=== PATIENT | female | born 1950 | race Caucasian/White ===

== ENCOUNTER → 2016-10-13 | Day surgery (SDC) | payer OTHER ==
[2016-10-11 13:02] LABS: Basophils # (auto) 0 uL; Basophils % (auto) 0.5 % (0.0-2.0); Eosinophils # (auto) 0.1 uL; Eosinophils % (auto) 2.2 % (0.0-7.0); Hematocrit 38.4 % (36.0-46.0); Hemoglobin 12.8 g/dL (12.2-16.2); Lymphocytes # (auto) 1.9 uL; Lymphocytes % (auto) 32.6 % (10.0-50.0); Mean Corpuscular Hemoglobin 29.8 pg (28.0-32.0); Mean Corpuscular Hgb Conc. 33.2 g/dL (32.0-36.0); Mean Corpuscular Volume 89.5 fL (80.0-100.0); Mean Platelet Volume 8.4 fL (7.4-10.4); Monocytes # (auto) 0.6 uL; Monocytes % (auto) 10.2 % (0.0-12.0); Neutrophils # (auto) 3.1 uL; Neutrophils % (auto) 54.5 % (37.0-80.0); Platelet Count (auto) 247 10^3/uL (140-450); Red Cell Distribution Width 12.9 % (11.6-16.0); White Blood Cell 5.8 10^3/uL (4.4-10.8)
[2016-10-11 13:14] LABS: INR 0.98 (0.9-1.15); Partial Thromboplastin Time 26.4 sec (22.64-33.71); Prothrombin Time 10.1 sec (9.37-12.3)
[~2016-10-13] VITALS: Ht 165.1 cm; Wt 72.6 kg
[~2016-10-13] MED LIST: AMIT25TA9 PO; AMLO5TAB2 PO; ASPI81CH43 OR; BRIM0.2S2 OP; BUSP10TA90 OR; CLON0.1T OR; GABA800T97 OR; LATA0.0015 EACHEYE; LOSA100T27 OR; SODIUM CHLORIDE LOCK 10 ML ONE; TRAM50TA2 OR; [UNRECOGNIZED DRUG - CODE] TOP; diphenhdrAMINE HCL 50 MG/1 ML VL ONE
[2016-10-13] MEDS: fentaNYL CITRATE 100 MCG/2 ML VL ONE ×3 (09:11→09:20)
[2016-10-13] MEDS: MIDAZOLAM HCL 5 MG/ML-1ML VIAL ONE ×3 (09:11→09:20)
[2016-10-13 10:16] VITALS: BP 126/81
== END | disposition home or self-care (01) ==
LOC: GI 07:16
PROVIDERS: ATTEND Internal Medicine Gastroenterology
DX: Z12.11 Encounter for screening for malignant neoplasm of colon (principal); F41.9 Anxiety disorder, unspecified; Z87.891 Personal history of nicotine dependence; K62.1 Rectal polyp; Z80.0 Family history of malignant neoplasm of digestive organs
CPT/HCPCS: 36415; 45385; 85025; 85610; 85730; J2250; J3010

== ENCOUNTER → 2016-12-05 | Outpatient (CLI) | payer OTHER ==
[~2016-12-05] MED LIST changes: -SODIUM CHLORIDE LOCK 10 ML ONE; -diphenhdrAMINE HCL 50 MG/1 ML VL ONE
[2016-12-05 09:28] LABS: Urine RBC None Seen /hpf (0 - 4)
[2016-12-05 09:40] LABS: Basophils # (auto) 0 uL; Basophils % (auto) 0.8 % (0.0-2.0); Eosinophils # (auto) 0.1 uL; Eosinophils % (auto) 1.4 % (0.0-7.0); Hematocrit 38.7 % (36.0-46.0); Hemoglobin 13.1 g/dL (12.2-16.2); Lymphocytes # (auto) 1.5 uL; Lymphocytes % (auto) 31.5 % (10.0-50.0); Mean Corpuscular Hemoglobin 29.9 pg (28.0-32.0); Mean Corpuscular Hgb Conc. 33.7 g/dL (32.0-36.0); Mean Corpuscular Volume 88.6 fL (80.0-100.0); Mean Platelet Volume 7.9 fL (7.4-10.4); Monocytes # (auto) 0.5 uL; Monocytes % (auto) 10.2 % (0.0-12.0); Neutrophils # (auto) 2.6 uL; Neutrophils % (auto) 56.1 % (37.0-80.0); Platelet Count (auto) 275 10^3/uL (140-450); Red Cell Distribution Width 13.1 % (11.6-16.0); White Blood Cell 4.7 10^3/uL (4.4-10.8)
[2016-12-05 09:49] LABS: Urine Bilirubin Negative (Negative); Urine Blood Negative /uL (Negative); Urine Color Yellow (Yellow); Urine Glucose Normal (Normal); Urine Ketone Negative (Negative); Urine Nitrite Negative (Negative); Urine Squamous Epithelial Cell FEW /hpf (<5); Urine Urobilinogen Normal (Negative); Urine pH 6.5 (5.0-8.0)
[2016-12-05 09:50] LABS: Albumin 3.8 g/dL (3.4-5.0); BUN/Creatinine Ratio 21.1; Bilirubin, Total 0.6 mg/dL (0.2-1.0); Calcium 8.7 mg/dL (8.5-10.1)
== END | disposition home or self-care (01) ==
LOC: LAB 08:42
PROVIDERS: ATTEND Internal Medicine
DX: C23 Malignant neoplasm of gallbladder (principal); Z00.00 Encounter for general adult medical examination without abnormal findings; I10 Essential (primary) hypertension
CPT/HCPCS: 36415; 80053; 80061; 81001; 82306; 85025; 86803

== ENCOUNTER → 2017-02-09 | Outpatient (CLI) | payer OTHER ==
[2017-02-09 11:11] LABS: Basophils # (auto) 0 uL; Basophils % (auto) 0.5 % (0.0-2.0); Eosinophils # (auto) 0.1 uL; Eosinophils % (auto) 1.4 % (0.0-7.0); Hemoglobin 12.9 g/dL (12.2-16.2); Lymphocytes % (auto) 36.4 % (10.0-50.0); Mean Corpuscular Hemoglobin 29.8 pg (28.0-32.0); Mean Corpuscular Hgb Conc. 33.8 g/dL (32.0-36.0); Mean Platelet Volume 7.2 fL (7.4-10.4); Monocytes # (auto) 0.5 uL; Monocytes % (auto) 9.6 % (0.0-12.0); Neutrophils # (auto) 2.8 uL; Neutrophils % (auto) 52.1 % (37.0-80.0); Platelet Count (auto) 278 10^3/uL (140-450); Red Cell Distribution Width 13.7 % (11.6-16.0); White Blood Cell 5.5 10^3/uL (4.4-10.8)
[2017-02-09 11:38] LABS: Urine Bilirubin Negative (Negative); Urine Blood Negative /uL (Negative); Urine Color Colorless (Yellow); Urine Glucose Normal (Normal); Urine Ketone Negative (Negative); Urine Nitrite Negative (Negative); Urine RBC <1 /hpf (0 - 4); Urine Urobilinogen Normal (Negative)
[2017-02-09 11:41] LABS: INR 0.96 (0.9-1.15); Partial Thromboplastin Time 27.9 sec (22.64-33.71); Prothrombin Time 10.4 sec (9.37-12.3)
[2017-02-09 12:32] LABS: Albumin 3.7 g/dL (3.4-5.0); BUN/Creatinine Ratio 13.5; Bilirubin, Total 0.7 mg/dL (0.2-1.0); Potassium 3.9 mmol/L (3.5-5.1)
== END | disposition home or self-care (01) ==
LOC: LAB 10:35
PROVIDERS: ATTEND Podiatrist Foot & Ankle Surgery
DX: Z01.812 Encounter for preprocedural laboratory examination (principal); M20.5X9 Other deformities of toe(s) (acquired), unspecified foot; M95.9 Acquired deformity of musculoskeletal system, unspecified; M89.371 Hypertrophy of bone, right ankle and foot
CPT/HCPCS: 36415; 80053; 81001; 85025; 85610; 85730

== ENCOUNTER 2017-02-15 06:03 | Day surgery (SDC) | payer OTHER ==
[~2017-02-15] VITALS: Ht 165.1 cm; Wt 70.8 kg
[~2017-02-15 06:03] MED LIST changes: -AMIT25TA9 PO; -BRIM0.2S2 OP; +PIME1CRE TOP; +TIMO0.5S3 EACHEYE; -TRAM50TA2 OR; -[UNRECOGNIZED DRUG - CODE] TOP
[2017-02-15] MEDS ORDERED: SUCCINYLCHOLINE CHLORIDE 20 MG/ML 10ML VIAL IV ONE (06:43)
[2017-02-15] MEDS ORDERED: LIDOCAINE 1% HCL (LOCAL ANESTH.) INJ 20ML MDV ONE (06:43)
[2017-02-15] MEDS ORDERED: ONDANSETRON HCL 4 MG/2 ML VIAL ONE (06:48)
[2017-02-15] MEDS ORDERED: MIDAZOLAM HCL 1MG/1ML-2 ML VIAL ONE (06:48)
[2017-02-15] MEDS ORDERED: PROPOFOL 10 MG/ML 20 ML IV ONE (06:48)
[2017-02-15] MEDS ORDERED: SODIUM CHLORIDE LOCK 20 ML ONE (06:48)
[2017-02-15] MEDS ORDERED: fentaNYL CITRATE 100 MCG/2 ML VL ONE (06:48)
[2017-02-15] MEDS ORDERED: CLINDAMYCIN 600MG IV 50 ML IV ONE (07:18)
[2017-02-15] MEDS ORDERED: BUPIVACAINE HCL 50 ML ONE (07:20)
[2017-02-15] MEDS ORDERED: LIDOCAINE W/ EPINEPHRINE 1% 20ML VIAL ONE (07:20)
[2017-02-15] MEDS ORDERED: BETAMETHASONE ACET (6MG/ML) 5ML VIAL ONE (07:24)
[2017-02-15] MEDS ORDERED: BUPIVACAINE 0.5% MPF INJ 30ML SDV IJ ONE ×2 (07:44→08:32)
[2017-02-15] MEDS ORDERED: HYDROmorphone HCL 2 MG/ML VL IV PRN (08:00)
[2017-02-15] MEDS ORDERED: METOCLOPRAMIDE HCL 5MG/ml INJ 2ml VIAL IV ONE (08:00)
[2017-02-15 09:50] VITALS: BP 140/70
== END 2017-02-15 09:50 | disposition home or self-care (01) ==
LOC: SUR 06:03
PROVIDERS: ATTEND Podiatrist Foot & Ankle Surgery
DX: M20.41 Other hammer toe(s) (acquired), right foot (principal); G62.9 Polyneuropathy, unspecified; I10 Essential (primary) hypertension; F41.9 Anxiety disorder, unspecified; T44.5X5A Adverse effect of predominantly beta-adrenoreceptor agonists, initial encounter; Z87.891 Personal history of nicotine dependence; Z98.51 Tubal ligation status
CPT/HCPCS: 28285; 73630; J0330; J0702; J2001; J2250; J2405; J2704; J3010; J3490

== ENCOUNTER 2017-08-15 06:11 | Day surgery (SDC) | payer OTHER ==
[2017-08-11 10:53] LABS: Basophils # (auto) 0 uL; Eosinophils # (auto) 0.1 uL; Eosinophils % (auto) 1.5 % (0.0-7.0); Hematocrit 40.2 % (36.0-46.0); Hemoglobin 13.6 g/dL (12.2-16.2); Lymphocytes # (auto) 1.6 uL; Lymphocytes % (auto) 32.4 % (10.0-50.0); Mean Corpuscular Hemoglobin 30.5 pg (28.0-32.0); Mean Corpuscular Hgb Conc. 33.8 g/dL (32.0-36.0); Mean Corpuscular Volume 90.1 fL (80.0-100.0); Mean Platelet Volume 8.2 fL (6.9-10.8); Monocytes # (auto) 0.6 uL; Monocytes % (auto) 11.5 % (0.0-12.0); Neutrophils # (auto) 2.6 uL; Neutrophils % (auto) 53.6 % (37.0-80.0); Platelet Count (auto) 251 10^3/uL (140-450); Red Cell Distribution Width 13.3 % (11.8-14.3); White Blood Cell 4.8 10^3/uL (4.4-10.8)
[2017-08-11 10:59] LABS: Urine Bilirubin Negative (Negative); Urine Blood Negative /uL (Negative); Urine Color Yellow (Yellow); Urine Glucose Normal (Normal); Urine Ketone Negative (Negative); Urine Nitrite Negative (Negative); Urine RBC <1 /hpf (0 - 4); Urine Squamous Epithelial Cell FEW /hpf (<5); Urine Urobilinogen Normal (Negative)
[2017-08-11 11:09] LABS: INR 0.92 (0.9-1.15); Partial Thromboplastin Time 28.3 sec (22.64-33.71)
[2017-08-11 11:13] LABS: Albumin 3.8 g/dL (3.4-5.0); BUN/Creatinine Ratio 15.2; Calcium 8.9 mg/dL (8.5-10.1)
[2017-08-11 11:15] LABS: Bilirubin, Total 0.7 mg/dL (0.2-1.0); Total Protein 6.8 g/dL (6.4-8.2)
[~2017-08-15] VITALS: Ht 165.1 cm; Wt 68.0 kg
[2017-08-15] MEDS ORDERED: LIDOCAINE 1% HCL (LOCAL ANESTH.) INJ 20ML MDV ONE (06:44)
[2017-08-15] MEDS ORDERED: BUPIVACAINE 0.5% MPF INJ 30ML SDV IJ ONE (06:44)
[2017-08-15] MEDS ORDERED: BUPIVACAINE 0.25% INJ 50ML VIAL ONE (06:45)
[2017-08-15] MEDS ORDERED: BUPIVACAINE 0.75% INJ 10ML MPV SDV IJ ONE (06:45)
[2017-08-15] MEDS ORDERED: MIDAZOLAM HCL 1MG/1ML-2 ML VIAL ONE (07:00)
[2017-08-15] MEDS ORDERED: fentaNYL CITRATE 100 MCG/2 ML VL ONE (07:00)
[2017-08-15] MEDS ORDERED: ONDANSETRON HCL 4 MG/2 ML VIAL ONE (07:00)
[2017-08-15] MEDS ORDERED: PROPOFOL 10 MG/ML 20 ML IV ONE ×3 (07:00→09:31)
[2017-08-15] MEDS ORDERED: LIDOCAINE W/ EPINEPHRINE 1 % INJ 30ML ONE (07:01)
[2017-08-15] MEDS ORDERED: CLINDAMYCIN 600MG IV 50 ML IV ONE (07:06)
[2017-08-15] MEDS ORDERED: HYDROmorphone HCL 2 MG/ML VL IV PRN (07:30)
[2017-08-15] MEDS ORDERED: KETOROLAC TROMETH 30 MG/ML 1ML VIAL IV ONE (07:30)
[2017-08-15] MEDS ORDERED: METOCLOPRAMIDE HCL 5MG/ml INJ 2ml VIAL IV ONE (07:30)
[2017-08-15 10:45] VITALS: BP 133/71
== END 2017-08-15 10:46 | disposition home or self-care (01) ==
LOC: SUR 06:11
PROVIDERS: ATTEND Podiatrist Foot & Ankle Surgery
DX: M24.575 Contracture, left foot (principal); M25.775 Osteophyte, left foot; Q66.3 Other congenital varus deformities of feet; M20.42 Other hammer toe(s) (acquired), left foot
CPT/HCPCS: 27691; 28230; 28270; 28285; 28299; 36415; 73620; 80053; 81001; 85025; 85610; 85730; 88304; 88311; C1713; C1769; J2001; J2250; J2405; J2704; J3010; J3490

== ENCOUNTER 2017-08-18 10:12 | Inpatient (IN) | payer OTHER ==
[~2017-08-18] VITALS: Ht 165.1 cm; Wt 73.2 kg
[2017-08-18] MEDS ORDERED: SODIUM CHLORIDE 0.9% 1,000 ML IVB ONE (10:26)
[2017-08-18] MEDS ORDERED: ONDANSETRON HCL 4 MG/2 ML VIAL IV ONE (10:30)
[2017-08-18 11:14] LABS: Basophils # (auto) 0 uL; Basophils % (auto) 0.2 % (0.0-2.0); Eosinophils # (auto) 0 uL; Eosinophils % (auto) 0.1 % (0.0-7.0); Hematocrit 38.8 % (36.0-46.0); Hemoglobin 13.8 g/dL (12.2-16.2); Lymphocytes % (auto) 8.3 % (10.0-50.0); Mean Corpuscular Hemoglobin 30.3 pg (28.0-32.0); Mean Corpuscular Hgb Conc. 35.5 g/dL (32.0-36.0); Mean Corpuscular Volume 85.3 fL (80.0-100.0); Mean Platelet Volume 7.4 fL (6.9-10.8); Monocytes # (auto) 1.1 uL; Monocytes % (auto) 9.3 % (0.0-12.0); Neutrophils % (auto) 82.1 % (37.0-80.0); Nucleated Red Blood Cells % 0.1 %; Platelet Count (auto) 245 10^3/uL (140-450); Red Cell Distribution Width 12.6 % (11.8-14.3); White Blood Cell 12.1 10^3/uL (4.4-10.8)
[2017-08-18 11:30] LABS: Albumin 3.6 g/dL (3.4-5.0); Alkaline Phosphatase 107 U/L (45-117); Anion Gap 12 (5-15); Aspartate Aminotransferase 17 U/L (15-37); BUN/Creatinine Ratio 18.2; Bilirubin, Total 1.7 mg/dL (0.2-1.0); Blood Urea Nitrogen 6 mg/dL (7-18); Calcium 8.7 mg/dL (8.5-10.1); Carbon Dioxide 24 mmol/L (21-32); Chloride 77 mmol/L (98-107); GFR African American 256 mL/min; GFR Non-African American 212 mL/min; Glucose 120 mg/dL (74-106); Magnesium 1.8 mg/dL (1.6-2.6); Potassium 3.2 mmol/L (3.5-5.1); Total Protein 7.2 g/dL (6.4-8.2)
[2017-08-18 11:38] LABS: Sodium 113 mmol/L (136-145)
[2017-08-18 11:47] LABS: INR 1.01 (0.9-1.15); Partial Thromboplastin Time 31.5 sec (22.64-33.71)
[2017-08-18] MEDS ORDERED: LEVOFLOXACIN 500MG 100 ML IV ONE (12:00)
[2017-08-18] MEDS ORDERED: SODIUM CHL 3% 500 ML IV ONE (12:00)
[2017-08-18] MEDS ORDERED: POTASSIUM CHL 20MEQ/50ML 50 ML IV ONE (12:00)
[2017-08-18] MEDS ORDERED: LORazepam 0.5 MG TAB PO PRN (12:30)
[2017-08-18] MEDS: SOD CHL 0.9%/ KCL 40MEQ 1,000 ML IV SCH (12:30)
[2017-08-18] MEDS ORDERED: LACTULOSE 20Gm/30ML SOLN PO PRN (12:30)
[2017-08-18] MEDS ORDERED: ACETAMINOPHEN 500 MG TAB PO PRN (12:30)
[2017-08-18] MEDS ORDERED: LABETALOL HCL 5 MG/ML ML 20ML VIAL IV PRN ×2 (12:30)
[2017-08-18] MEDS ORDERED: NITROGLYCERIN 0.4 MG SL TAB SL PRN (12:30)
[2017-08-18] MEDS ORDERED: HYDROmorphone HCL 2 MG/ML VL IV PRN (12:30)
[2017-08-18] MEDS ORDERED: TEMAZEPAM 15 MG CAP PO PRN (12:30)
[2017-08-18] MEDS: FAMOTIDINE (10MG/ML) 2ML VL IV SCH (12:54)
[2017-08-18] MEDS ORDERED: POTASSIUM CHL 20 Meq TABLET PO ONE (13:15)
[2017-08-18] MEDS: LOSARTAN POTASSIUM 50 MG TAB PO SCH (13:24)
[2017-08-18] MEDS: GABAPENTIN 400 MG CAP PO SCH ×2 (13:48→22:48)
[2017-08-18] MEDS: busPIRone HCL 10 MG TAB PO SCH ×2 (13:48→22:48)
[2017-08-18 13:53] LABS: Urine Bilirubin Negative (Negative); Urine Blood TRACE /uL (Negative); Urine Color Yellow (Yellow); Urine Glucose Normal (Normal); Urine Ketone 1+ (Negative); Urine Nitrite Negative (Negative); Urine RBC 1 /hpf (0 - 4); Urine Squamous Epithelial Cell FEW /hpf (<5); Urine Urobilinogen Normal (Negative); Urine pH 6.5 (5.0-8.0)
[2017-08-18] MEDS: PROMETHAZINE HCL 25 MG/ML 1ML IV PRN ×2 (14:40→19:45)
[2017-08-18] MEDS: HYDROmorphone HCL 2 MG/ML VL IV PRN ×3 (14:40→19:45)
[2017-08-18] MEDS ORDERED: IOHEXOL 350 MG/ML 100ML IJ ONE ×2 (14:55→15:24)
[2017-08-18] MEDS ORDERED: cefTRIAXone 1GM/50ML D5W 50 ML IV ONE (15:00)
[2017-08-18] MEDS: LATANOPROST 0.005 % OPTH(EYE) SOL 2.5ML EACHEYE SCH (18:00)
[2017-08-18] MEDS: cloNIDine HCL 0.1 MG TAB PO SCH (22:00)
[2017-08-18] MEDS: TIMOLOL MAL 0.5% OPTH(EYE) SOL 5ML EACHEYE SCH (22:48)
[2017-08-19] MEDS: FAMOTIDINE (10MG/ML) 2ML VL IV SCH ×2 (00:43→12:24)
[2017-08-19] MEDS: PROMETHAZINE HCL 25 MG/ML 1ML IV PRN ×2 (01:55→20:27)
[2017-08-19] MEDS: SOD CHL 0.9%/ KCL 40MEQ 1,000 ML IV SCH ×2 (01:55→15:24)
[2017-08-19] MEDS: HYDROmorphone HCL 2 MG/ML VL IV PRN ×2 (01:56→20:27)
[2017-08-19] MEDS: busPIRone HCL 10 MG TAB PO SCH ×3 (06:12→22:05)
[2017-08-19] MEDS: GABAPENTIN 400 MG CAP PO SCH ×3 (06:12→22:04)
[2017-08-19 06:53] LABS: Albumin 3.3 g/dL (3.4-5.0); BUN/Creatinine Ratio 16.3; Bilirubin, Total 0.8 mg/dL (0.2-1.0); Total Protein 6.4 g/dL (6.4-8.2)
[2017-08-19 06:55] LABS: Hematocrit 38.7 % (36.0-46.0); Hemoglobin 13.5 g/dL (12.2-16.2); Mean Corpuscular Hemoglobin 30.8 pg (28.0-32.0); Mean Corpuscular Hgb Conc. 34.9 g/dL (32.0-36.0); Mean Corpuscular Volume 88.2 fL (80.0-100.0); Mean Platelet Volume 7.5 fL (6.9-10.8); Platelet Count (auto) 217 10^3/uL (140-450); Red Cell Distribution Width 12.7 % (11.8-14.3); White Blood Cell 7.8 10^3/uL (4.4-10.8)
[2017-08-19 07:01] LABS: Metamyelocytes % 0; Myelocytes % 0; Promyelocytes % 0; Reactive Lymphocytes 0
[2017-08-19 07:12] LABS: Potassium 2.8 mmol/L (3.5-5.1)
[2017-08-19] MEDS ORDERED: POTASSIUM CHL 20 Meq TABLET PO ONE (07:30)
[2017-08-19] MEDS: cefTRIAXone 1GM/50ML D5W 50 ML IV SCH (09:11)
[2017-08-19] MEDS: cloNIDine HCL 0.1 MG TAB PO SCH ×2 (10:00→22:11)
[2017-08-19] MEDS: PIMECROLIMUS 1% TOP SCH (10:00)
[2017-08-19] MEDS: LOSARTAN POTASSIUM 50 MG TAB PO SCH (10:00)
[2017-08-19] MEDS: TIMOLOL MAL 0.5% OPTH(EYE) SOL 5ML EACHEYE SCH ×2 (10:15→22:12)
[2017-08-19] MEDS: ASPirin 81 mg TAB PO SCH (10:15)
[2017-08-19] MEDS: amLODIPine BESYLATE 5 MG TAB PO SCH (10:16)
[2017-08-19] MEDS: ENOXAPARIN SOD 40 MG/0.4 ML SYRINGE SC SCH (10:16)
[2017-08-19 11:30] VITALS: BP 150/75
[2017-08-19 11:38] LABS: Platelet Estimate Adequate
[2017-08-19] MEDS: HYDROcodone-ACET 5/325MG TAB PO PRN ×2 (12:24→18:30)
[2017-08-19 12:30] VITALS: BP 150/75
[2017-08-19 13:00] VITALS: BP 154/80
[2017-08-19 14:54] LABS: BUN/Creatinine Ratio 18.6; Calcium 8.4 mg/dL (8.5-10.1)
[2017-08-19 17:00] VITALS: BP_SYST 143; BP_SYST 160; BP_DIAS 71; BP_DIAS 87
[2017-08-19] MEDS: LATANOPROST 0.005 % OPTH(EYE) SOL 2.5ML EACHEYE SCH (17:30)
[2017-08-19 22:00] VITALS: BP 141/73
[2017-08-20] MEDS: FAMOTIDINE (10MG/ML) 2ML VL IV SCH (00:05)
[2017-08-20] MEDS: PROMETHAZINE HCL 25 MG/ML 1ML IV PRN (00:45)
[2017-08-20] MEDS: HYDROmorphone HCL 2 MG/ML VL IV PRN ×2 (00:45→10:53)
[2017-08-20 05:00] VITALS: BP 163/90
[2017-08-20] MEDS: SOD CHL 0.9%/ KCL 40MEQ 1,000 ML IV SCH (05:00)
[2017-08-20] MEDS: GABAPENTIN 400 MG CAP PO SCH (05:38)
[2017-08-20] MEDS: busPIRone HCL 10 MG TAB PO SCH (05:38)
[2017-08-20 06:00] LABS: Basophils # (auto) 0 uL; Basophils % (auto) 0.7 % (0.0-2.0); Eosinophils # (auto) 0.1 uL; Hematocrit 42.4 % (36.0-46.0); Hemoglobin 14.1 g/dL (12.2-16.2); Lymphocytes # (auto) 2.3 uL; Lymphocytes % (auto) 35.5 % (10.0-50.0); Mean Corpuscular Hemoglobin 30.8 pg (28.0-32.0); Mean Corpuscular Hgb Conc. 33.3 g/dL (32.0-36.0); Mean Corpuscular Volume 92.5 fL (80.0-100.0); Monocytes % (auto) 16.2 % (0.0-12.0); Neutrophils % (auto) 45.6 % (37.0-80.0); Nucleated Red Blood Cells % 0.1 %; Platelet Count (auto) 192 10^3/uL (140-450); Red Cell Distribution Width 13.2 % (11.8-14.3); White Blood Cell 6.5 10^3/uL (4.4-10.8)
[2017-08-20 06:33] LABS: Albumin 3.4 g/dL (3.4-5.0); BUN/Creatinine Ratio 21.1; Bilirubin, Total 0.5 mg/dL (0.2-1.0); Calcium 8.9 mg/dL (8.5-10.1); Potassium 3.9 mmol/L (3.5-5.1); Total Protein 6.9 g/dL (6.4-8.2)
[2017-08-20] MEDS: cefTRIAXone 1GM/50ML D5W 50 ML IV SCH (08:43)
[2017-08-20] MEDS: LOSARTAN POTASSIUM 50 MG TAB PO SCH (08:44)
[2017-08-20] MEDS: amLODIPine BESYLATE 5 MG TAB PO SCH (08:45)
[2017-08-20] MEDS: cloNIDine HCL 0.1 MG TAB PO SCH (08:45)
[2017-08-20 09:00] VITALS: BP 174/81
[2017-08-20] MEDS: ASPirin 81 mg TAB PO SCH (09:38)
[2017-08-20] MEDS: PIMECROLIMUS 1% TOP SCH (09:39)
[2017-08-20] MEDS: ENOXAPARIN SOD 40 MG/0.4 ML SYRINGE SC SCH (09:39)
[2017-08-20] MEDS: TIMOLOL MAL 0.5% OPTH(EYE) SOL 5ML EACHEYE SCH (10:17)
[2017-08-20 11:29] VITALS: BP 149/84
== END 2017-08-20 17:21 | disposition home or self-care (01) | DRG 640 ==
LOC: EDBD 10:12 → ER 10:12 → TELE 10:13 → TELE-WESTW 08-19 11:24
PROVIDERS: ADMIT Internal Medicine; ATTEND Internal Medicine
DX: E87.1 Hypo-osmolality and hyponatremia (principal); G93.41 Metabolic encephalopathy; E44.0 Moderate protein-calorie malnutrition; N39.0 Urinary tract infection, site not specified; E78.5 Hyperlipidemia, unspecified; E87.6 Hypokalemia; E83.51 Hypocalcemia; R55 Syncope and collapse; I10 Essential (primary) hypertension; Z68.26 Body mass index [BMI] 26.0-26.9, adult; Z98.51 Tubal ligation status; Z88.0 Allergy status to penicillin; Z88.8 Allergy status to other drugs, medicaments and biological substances
CPT/HCPCS: 36415; 70450; 71020; 71275; 74176; 80048; 80053; 80061; 80307; 80320; 81001; 82962; 83735; 84443; 84484; 85007; 85025; 85027; 85379; 85610; 85652; 85730; 87040; 87086; 87088; 87186; 96361; 96365; 96367; 96375; 99291; J0696; J1956; J2405; J3490

== ENCOUNTER 2017-09-11 08:41 | Emergency (ER) | payer OTHER ==
[~2017-09-11] VITALS: Ht 165.1 cm; Wt 68.0 kg
[2017-09-11] MEDS ORDERED: SODIUM CHLORIDE 0.9% 1,000 ML IV ONE (09:17)
[2017-09-11 09:38] LABS: Basophils # (auto) 0 uL; Basophils % (auto) 0.7 % (0.0-2.0); Eosinophils # (auto) 0.1 uL; Eosinophils % (auto) 1.1 % (0.0-7.0); Hematocrit 37.2 % (36.0-46.0); Lymphocytes # (auto) 1.2 uL; Lymphocytes % (auto) 17.4 % (10.0-50.0); Mean Corpuscular Hemoglobin 30.5 pg (28.0-32.0); Mean Corpuscular Volume 87.2 fL (80.0-100.0); Mean Platelet Volume 7.2 fL (6.9-10.8); Monocytes # (auto) 0.8 uL; Monocytes % (auto) 11.5 % (0.0-12.0); Neutrophils # (auto) 4.7 uL; Neutrophils % (auto) 69.3 % (37.0-80.0); Platelet Count (auto) 274 10^3/uL (140-450); Red Cell Distribution Width 12.9 % (11.8-14.3); White Blood Cell 6.8 10^3/uL (4.4-10.8)
[2017-09-11 10:11] LABS: Albumin 3.6 g/dL (3.4-5.0); Alkaline Phosphatase 96 U/L (45-117); Anion Gap 10 (5-15); Aspartate Aminotransferase 15 U/L (15-37); BUN/Creatinine Ratio 10.7; Bilirubin, Total 0.6 mg/dL (0.2-1.0); Blood Urea Nitrogen 6 mg/dL (7-18); Calcium 8.7 mg/dL (8.5-10.1); Carbon Dioxide 27 mmol/L (21-32); Chloride 88 mmol/L (98-107); GFR African American 139 mL/min; GFR Non-African American 115 mL/min; Glucose 103 mg/dL (74-106); Magnesium 2.1 mg/dL (1.6-2.6); Sodium 125 mmol/L (136-145); Total Protein 6.8 g/dL (6.4-8.2)
[2017-09-11 10:16] LABS: Potassium 2.7 mmol/L (3.5-5.1)
[2017-09-11] MEDS ORDERED: POTASSIUM CHL 20 Meq TABLET PO ONE (10:30)
[2017-09-11 10:51] LABS: Urine RBC None Seen /hpf (0 - 4)
[2017-09-11 11:16] LABS: Urine Bilirubin Negative (Negative); Urine Blood Negative /uL (Negative); Urine Color Yellow (Yellow); Urine Glucose Normal (Normal); Urine Ketone Negative (Negative); Urine Nitrite Negative (Negative); Urine Squamous Epithelial Cell FEW /hpf (<5); Urine Urobilinogen Normal (Negative); Urine pH 6.5 (5.0-8.0)
[2017-09-11] MEDS ORDERED: POTASSIUM CHL 10% (20 MEQ/15ML) 15ml ORAL SOLN PO ONE (11:30)
[2017-09-11 11:54] VITALS: BP 135/69
== END 2017-09-11 12:55 | disposition home or self-care (01) ==
LOC: EDBD 08:41 → ER 08:41
DX: E87.6 Hypokalemia (principal); E78.5 Hyperlipidemia, unspecified; I10 Essential (primary) hypertension; Z79.899 Other long term (current) drug therapy; Z88.0 Allergy status to penicillin; Z88.8 Allergy status to other drugs, medicaments and biological substances
CPT/HCPCS: 36415; 70450; 80053; 81001; 83735; 84484; 85025; 93005; 96360; 99285; J7030

== ENCOUNTER 2017-09-24 10:38 | Emergency (ER) | payer OTHER ==
[~2017-09-24] VITALS: Ht 165.1 cm; Wt 68.0 kg
[2017-09-24 11:41] LABS: Basophils # (auto) 0 uL; Basophils % (auto) 0.5 % (0.0-2.0); Eosinophils # (auto) 0.1 uL; Eosinophils % (auto) 1.1 % (0.0-7.0); Hematocrit 38.6 % (36.0-46.0); Hemoglobin 13.1 g/dL (12.2-16.2); Lymphocytes # (auto) 1.6 uL; Lymphocytes % (auto) 21.8 % (10.0-50.0); Mean Corpuscular Hemoglobin 30.1 pg (28.0-32.0); Mean Corpuscular Hgb Conc. 33.9 g/dL (32.0-36.0); Mean Corpuscular Volume 88.7 fL (80.0-100.0); Monocytes # (auto) 0.7 uL; Monocytes % (auto) 9.6 % (0.0-12.0); Platelet Count (auto) 258 10^3/uL (140-450); Red Cell Distribution Width 12.8 % (11.8-14.3); White Blood Cell 7.5 10^3/uL (4.4-10.8)
[2017-09-24 11:59] LABS: Albumin 3.9 g/dL (3.4-5.0); BUN/Creatinine Ratio 31.8; Bilirubin, Total 0.5 mg/dL (0.2-1.0); Calcium 8.7 mg/dL (8.5-10.1); Potassium 4.2 mmol/L (3.5-5.1); Total Protein 7.2 g/dL (6.4-8.2)
[2017-09-24 14:10] VITALS: BP 155/76
[2017-09-24] MEDS ORDERED: SODIUM CHLORIDE 0.9% 1,000 ML IV ONE ×2 (14:30)
== END 2017-09-24 16:02 | disposition home or self-care (01) ==
LOC: ER 10:38
DX: R53.1 Weakness (principal); E78.5 Hyperlipidemia, unspecified; I10 Essential (primary) hypertension; Z98.51 Tubal ligation status; Z88.0 Allergy status to penicillin; Z88.8 Allergy status to other drugs, medicaments and biological substances; Z79.899 Other long term (current) drug therapy
CPT/HCPCS: 36415; 80053; 85025; 93005; 96360; 99285; J7030

== ENCOUNTER → 2018-02-15 | Outpatient (CLI) | payer OTHER ==
[2018-02-15 08:16] LABS: Basophils # (auto) 0.1 uL; Basophils % (auto) 0.7 % (0.0-2.0); Eosinophils # (auto) 0.1 uL; Eosinophils % (auto) 0.6 % (0.0-7.0); Hematocrit 38.8 % (36.0-46.0); Hemoglobin 13.3 g/dL (12.2-16.2); Lymphocytes # (auto) 1.5 uL; Lymphocytes % (auto) 14.6 % (10.0-50.0); Mean Corpuscular Hemoglobin 30.5 pg (28.0-32.0); Mean Corpuscular Hgb Conc. 34.2 g/dL (32.0-36.0); Mean Corpuscular Volume 89.1 fL (80.0-100.0); Monocytes # (auto) 1.1 uL; Monocytes % (auto) 11.1 % (0.0-12.0); Neutrophils # (auto) 7.3 uL; Nucleated Red Blood Cells % 0.1 %; Platelet Count (auto) 260 10^3/uL (140-450); Red Blood Cells 4.35 10^6/uL (4.0-5.20); Red Cell Distribution Width 13.2 % (11.8-14.3)
[2018-02-15 09:12] LABS: Albumin 3.7 g/dL (3.4-5.0); BUN/Creatinine Ratio 15.3; Bilirubin, Total 0.9 mg/dL (0.2-1.0); Potassium 4.2 mmol/L (3.5-5.1)
== END | disposition home or self-care (01) ==
LOC: LAB 07:28
PROVIDERS: ATTEND Physician Assistant
DX: I10 Essential (primary) hypertension (principal); E78.5 Hyperlipidemia, unspecified; L20.81 Atopic neurodermatitis; B36.9 Superficial mycosis, unspecified; Z79.899 Other long term (current) drug therapy
CPT/HCPCS: 36415; 80053; 80061; 85025

== ENCOUNTER 2018-04-17 06:10 | Day surgery (SDC) | payer OTHER ==
[2018-04-13 11:06] LABS: Basophils # (auto) 0.1 uL; Basophils % (auto) 1.1 % (0.0-2.0); Eosinophils # (auto) 0.1 uL; Eosinophils % (auto) 1.7 % (0.0-7.0); Hemoglobin 13.8 g/dL (12.2-16.2); Lymphocytes # (auto) 1.9 uL; Lymphocytes % (auto) 35.4 % (10.0-50.0); Mean Corpuscular Hemoglobin 30.5 pg (28.0-32.0); Mean Corpuscular Hgb Conc. 34.5 g/dL (32.0-36.0); Mean Corpuscular Volume 88.6 fL (80.0-100.0); Monocytes # (auto) 0.7 uL; Monocytes % (auto) 12.3 % (0.0-12.0); Neutrophils # (auto) 2.7 uL; Neutrophils % (auto) 49.5 % (37.0-80.0); Nucleated Red Blood Cells % 0.1 %; Platelet Count (auto) 245 10^3/uL (140-450); Red Blood Cells 4.51 10^6/uL (4.0-5.20); Red Cell Distribution Width 13.5 % (11.8-14.3); Urine Bacteria NONE SEEN /hpf (None Seen); Urine Blood Negative /uL (Negative); Urine Specific Gravity 1.003 (1.001-1.035); Urine WBC <1 /hpf (0 - 5); White Blood Cell 5.4 10^3/uL (4.4-10.8)
[2018-04-13 11:20] LABS: INR 0.96 (0.9-1.15); Partial Thromboplastin Time 31.4 sec (23.78-33.04); Prothrombin Time 10.3 sec (9.27-12.13)
[2018-04-13 11:54] LABS: Albumin 4.1 g/dL (3.4-5.0); BUN/Creatinine Ratio 20.4; Bilirubin, Total 0.8 mg/dL (0.2-1.0); Calcium 8.7 mg/dL (8.5-10.1); Potassium 4.3 mmol/L (3.5-5.1); Total Protein 7.3 g/dL (6.4-8.2)
[~2018-04-17] VITALS: Ht 165.1 cm; Wt 68.0 kg
[~2018-04-17 06:10] MED LIST changes: +AMLO10TA2 PO; +ASPI81TA27 PO; +BUSP5TAB51 PO; +CLO01T PO; +FLUC150T41 PO; +GABA400C11 PO; +IBUP800T24 PO; +LOSA100T33 PO; +POTA8TAB2 PO; -TIMO0.5S3 EACHEYE; +TIMO0.5S38 EACHEYE; +TRAM50TA2 PO
[2018-04-17] MEDS ORDERED: ceFAZolin 1GM VL ONE (06:50)
[2018-04-17] MEDS ORDERED: BUPIVACAINE HCL 50 ML ONE (06:50)
[2018-04-17] MEDS ORDERED: LIDOCAINE W/ EPINEPHRINE 1 % INJ 30ML ONE ×2 (06:50)
[2018-04-17] MEDS ORDERED: CIPROFLOXACIN 400MG/200ML 200 ML IV ONE (07:00)
[2018-04-17] MEDS ORDERED: methylPREDNISolone ACETATE 80 MG/ML VL ONE (07:14)
[2018-04-17] MEDS ORDERED: fentaNYL CITRATE 100 MCG/2 ML VL IV ONE (07:24)
[2018-04-17] MEDS ORDERED: TRIAMCINOLONE 40MG/ML 1ML VIAL ONE (07:27)
[2018-04-17] MEDS ORDERED: TRIAMCINOLONE ACETONIDE 10 MG/ML IX ONE (07:30)
[2018-04-17] MEDS ORDERED: MIDAZOLAM HCL 1MG/1ML-2 ML VIAL ONE (07:34)
[2018-04-17] MEDS ORDERED: LIDOCAINE HCL 2 %PF INJ 10ML AMP IJ ONE (07:35)
[2018-04-17] MEDS ORDERED: PROPOFOL 10 MG/ML 20 ML IV ONE (07:35)
[2018-04-17] MEDS ORDERED: ePHEDrine SULFATE 50 MG/ML AMP ONE (07:58)
[2018-04-17] MEDS ORDERED: NALOXONE HCL 0.4 MG/ML VIAL IV PRN (08:15)
[2018-04-17] MEDS ORDERED: ONDANSETRON HCL 4 MG/2 ML VIAL IV ONE (08:15)
[2018-04-17] MEDS ORDERED: MORPHINE SULF INJ 2 MG/ML SYRINGE 1ML IV PRN (08:15)
[2018-04-17] MEDS ORDERED: LIDOCAINE 1% HCL (LOCAL ANESTH.) INJ 20ML MDV ONE (08:32)
[2018-04-17 09:48] VITALS: BP 149/75
== END 2018-04-17 09:58 | disposition home or self-care (01) ==
LOC: MERGE 06:10 → SUR 06:10
PROVIDERS: ATTEND Podiatrist Foot & Ankle Surgery
DX: M20.42 Other hammer toe(s) (acquired), left foot (principal); I10 Essential (primary) hypertension; F41.9 Anxiety disorder, unspecified; G62.9 Polyneuropathy, unspecified; Z88.1 Allergy status to other antibiotic agents; Z88.0 Allergy status to penicillin; Z88.8 Allergy status to other drugs, medicaments and biological substances; Z79.1 Long term (current) use of non-steroidal anti-inflammatories (NSAID); Z79.891 Long term (current) use of opiate analgesic; Z79.899 Other long term (current) drug therapy
CPT/HCPCS: 28285; 36415; 73620; 80053; 81001; 85025; 85610; 85730; 88304; 88311; C1713; C1781; J0744; J1040; J2001; J2250; J2704; J3010; J3490; J7030; J0690

== ENCOUNTER 2018-10-01 19:48 | Emergency (ER) | payer OTHER ==
[~2018-10-01] VITALS: Ht 165.1 cm; Wt 68.0 kg
[~2018-10-01 19:48] MED LIST changes: +AMLO10TA12 PO; -AMLO10TA2 PO; +AMLO5TAB13 PO; -AMLO5TAB2 PO; +LOSA-49 OR; -LOSA100T27 OR
[2018-10-01] MEDS ORDERED: SODIUM CHLORIDE 0.9% 1,000 ML IV ONE (20:05)
[2018-10-01 21:59] LABS: Basophils # (auto) 0.1 uL; Basophils % (auto) 0.7 % (0.0-2.0); Eosinophils # (auto) 0.1 uL; Eosinophils % (auto) 1.5 % (0.0-7.0); Hematocrit 36.5 % (36.0-46.0); Lymphocytes # (auto) 1.5 uL; Lymphocytes % (auto) 15.5 % (10.0-50.0); Mean Corpuscular Hemoglobin 31.4 pg (28.0-32.0); Mean Corpuscular Hgb Conc. 35.5 g/dL (32.0-36.0); Mean Corpuscular Volume 88.5 fL (80.0-100.0); Monocytes % (auto) 11.1 % (0.0-12.0); Neutrophils # (auto) 6.7 uL; Neutrophils % (auto) 71.2 % (37.0-80.0); Nucleated Red Blood Cells % 0.1 %; Platelet Count (auto) 271 10^3/uL (140-450); Red Blood Cells 4.13 10^6/uL (4.0-5.20); Red Cell Distribution Width 13.2 % (11.8-14.3); White Blood Cell 9.4 10^3/uL (4.4-10.8)
[2018-10-01 22:11] LABS: Alanine Aminotransferase 30 U/L (13-56); Albumin 3.6 g/dL (3.4-5.0); Anion Gap 10 (5-15); Aspartate Aminotransferase 26 U/L (15-37); Blood Urea Nitrogen 17 mg/dL (7-18); Calcium 8.2 mg/dL (8.5-10.1); Carbon Dioxide 24 mmol/L (21-32); Chloride 96 mmol/L (98-107); Glucose 110 mg/dL (74-106); Sodium 130 mmol/L (136-145)
[2018-10-01 22:15] LABS: Alkaline Phosphatase 141 U/L (45-117); Bilirubin, Total 0.4 mg/dL (0.2-1.0); GFR African American 66 mL/min; GFR Non-African American 55 mL/min; Total Protein 6.5 g/dL (6.4-8.2)
[2018-10-02 00:29] LABS: INR 0.93 (0.9-1.15); Partial Thromboplastin Time 26.4 sec (23.78-33.04)
[2018-10-02 01:21] VITALS: BP 133/68
== END 2018-10-02 02:50 | disposition home or self-care (01) ==
LOC: EDBD 19:48 → ER 19:53
DX: R55 Syncope and collapse (principal); E87.1 Hypo-osmolality and hyponatremia; I10 Essential (primary) hypertension; E78.5 Hyperlipidemia, unspecified; Z98.51 Tubal ligation status; Z79.899 Other long term (current) drug therapy; Z88.6 Allergy status to analgesic agent; Z88.0 Allergy status to penicillin
CPT/HCPCS: 36415; 70450; 71045; 72125; 80053; 83880; 84443; 84484; 85025; 85379; 85610; 85730; 93005; 96360; 99284; J7030

== ENCOUNTER → 2018-12-04 | Outpatient (CLI) | payer OTHER ==
[2018-12-04 08:00] LABS: Basophils # (auto) 0.1 uL; Basophils % (auto) 1.9 % (0.0-2.0); Eosinophils # (auto) 0.1 uL; Eosinophils % (auto) 1.6 % (0.0-7.0); Hematocrit 40.8 % (36.0-46.0); Hemoglobin 13.9 g/dL (12.2-16.2); Lymphocytes # (auto) 1.7 uL; Lymphocytes % (auto) 43.4 % (10.0-50.0); Mean Corpuscular Hemoglobin 30.3 pg (28.0-32.0); Mean Corpuscular Hgb Conc. 34.2 g/dL (32.0-36.0); Mean Corpuscular Volume 88.8 fL (80.0-100.0); Monocytes # (auto) 0.6 uL; Monocytes % (auto) 15.1 % (0.0-12.0); Neutrophils # (auto) 1.4 uL; Nucleated Red Blood Cells % 0.1 %; Platelet Count (auto) 218 10^3/uL (140-450); White Blood Cell 3.8 10^3/uL (4.4-10.8)
[2018-12-04 08:20] LABS: Albumin 3.9 g/dL (3.4-5.0); Calcium 8.9 mg/dL (8.5-10.1); Potassium 4.2 mmol/L (3.5-5.1)
[2018-12-04 08:25] LABS: BUN/Creatinine Ratio 13.2; Bilirubin, Total 0.6 mg/dL (0.2-1.0); Total Protein 6.9 g/dL (6.4-8.2)
== END | disposition home or self-care (01) ==
LOC: LAB 07:35
PROVIDERS: ATTEND Internal Medicine
DX: F41.1 Generalized anxiety disorder (principal); I10 Essential (primary) hypertension; E78.5 Hyperlipidemia, unspecified; E87.1 Hypo-osmolality and hyponatremia; L20.81 Atopic neurodermatitis
CPT/HCPCS: 36415; 80053; 80061; 82533; 84443; 85025

== ENCOUNTER → 2018-12-19 | Outpatient (CLI) | payer OTHER ==
[~2018-12-19] VITALS: Ht 165.1 cm; Wt 71.7 kg
[~2018-12-19] MED LIST changes: +ADENOSINE 60 MG in GIVE UN-DILUTED 0 ML IV STA
[2018-12-19 09:35] VITALS: BP 168/95
== END | disposition home or self-care (01) ==
LOC: XYW 08:04
PROVIDERS: ATTEND Internal Medicine
DX: I10 Essential (primary) hypertension (principal)
CPT/HCPCS: 78452; 93017; A9500; J0153

== ENCOUNTER → 2018-12-20 | Outpatient (CLI) | payer OTHER ==
[~2018-12-20] MED LIST changes: -ADENOSINE 60 MG in GIVE UN-DILUTED 0 ML IV STA
== END | disposition home or self-care (01) ==
LOC: XYW 08:24
PROVIDERS: ATTEND Internal Medicine
DX: I34.0 Nonrheumatic mitral (valve) insufficiency (principal); I11.9 Hypertensive heart disease without heart failure
CPT/HCPCS: 93306

== ENCOUNTER → 2018-12-27 | Outpatient (CLI) | payer OTHER | END | disposition home or self-care (01) | LOC: XYW 07:28 | PROVIDERS: ATTEND Internal Medicine | DX: I10 Essential (primary) hypertension (principal); E78.5 Hyperlipidemia, unspecified | CPT/HCPCS: 93886 ==

== ENCOUNTER → 2019-03-06 | Outpatient (CLI) | payer OTHER ==
[2019-03-06 08:52] LABS: Band Neutrophils % (manual) 0; Basophils % (manual) 0 (0.0-2.0); Blast Cells 0; Eosinophils % (manual) 0 (0-7); Metamyelocytes % 0; Myelocytes % 0; Promyelocytes % 0; Reactive Lymphocytes 0
[2019-03-06 09:00] LABS: Hematocrit 40.4 % (36.0-46.0); Hemoglobin 13.8 g/dL (12.2-16.2); Mean Corpuscular Hemoglobin 30.2 pg (28.0-32.0); Mean Corpuscular Hgb Conc. 34.2 g/dL (32.0-36.0); Mean Corpuscular Volume 88.2 fL (80.0-100.0); Platelet Count (auto) 202 10^3/uL (140-450); Red Blood Cells 4.58 10^6/uL (4.0-5.20); Red Cell Distribution Width 13.8 % (11.8-14.3); White Blood Cell 4.6 10^3/uL (4.4-10.8)
[2019-03-06 09:55] LABS: Lymphocytes % (manual) 31 (10.0-50.0)
[2019-03-06 09:56] LABS: Monocytes % (manual) 11 (0-12)
[2019-03-06 10:09] LABS: Calcium 8.8 mg/dL (8.5-10.1)
[2019-03-06 10:13] LABS: BUN/Creatinine Ratio 21.8; Bilirubin, Total 0.6 mg/dL (0.2-1.0); Total Protein 7.2 g/dL (6.4-8.2)
[2019-03-07 09:32] LABS: Hepatitis B Surface Antibody Negative
[2019-03-07 10:09] LABS: Hepatitis A Total Antibody Negative
[2019-03-07 10:29] LABS: Hepatitis B Core Total AB Negative; Hepatitis B Surface Antigen Negative (Negative); Hepatitis C Antibody Negative (Negative)
== END | disposition home or self-care (01) ==
LOC: LAB 08:27
PROVIDERS: ATTEND Physician Assistant
DX: L20.9 Atopic dermatitis, unspecified (principal); Z79.899 Other long term (current) drug therapy
CPT/HCPCS: 36415; 80053; 85007; 85025; 85027; 86703; 86704; 86706; 86708; 86803; 87340

== ENCOUNTER → 2019-03-27 | Outpatient (CLI) | payer OTHER ==
[2019-03-27 08:08] LABS: Basophils # (auto) 0 uL; Basophils % (auto) 0.5 % (0.0-2.0); Eosinophils # (auto) 0.1 uL; Eosinophils % (auto) 2.1 % (0.0-7.0); Hematocrit 39.1 % (36.0-46.0); Hemoglobin 13.3 g/dL (12.2-16.2); Lymphocytes # (auto) 1.5 uL; Lymphocytes % (auto) 27.7 % (10.0-50.0); Mean Corpuscular Volume 88.3 fL (80.0-100.0); Monocytes # (auto) 0.5 uL; Monocytes % (auto) 10.4 % (0.0-12.0); Neutrophils # (auto) 3.1 uL; Neutrophils % (auto) 59.3 % (37.0-80.0); Platelet Count (auto) 203 10^3/uL (140-450); Red Blood Cells 4.42 10^6/uL (4.0-5.20); Red Cell Distribution Width 13.4 % (11.8-14.3); White Blood Cell 5.2 10^3/uL (4.4-10.8)
[2019-03-27 08:13] LABS: Potassium 3.7 mmol/L (3.5-5.1)
[2019-03-27 08:35] LABS: Albumin 3.7 g/dL (3.4-5.0); BUN/Creatinine Ratio 18.8; Bilirubin, Total 0.5 mg/dL (0.2-1.0); Total Protein 6.9 g/dL (6.4-8.2); Uric Acid 4.5 mg/dL (2.6-6.0)
== END | disposition home or self-care (01) ==
LOC: LAB 07:18
PROVIDERS: ATTEND Student in an Organized Health Care Education/Training Program
DX: I12.9 Hypertensive chronic kidney disease with stage 1 through stage 4 chronic kidney disease, or unspecified chronic kidney disease (principal); N18.3 Chronic kidney disease, stage 3 (moderate); R80.9 Proteinuria, unspecified; R94.6 Abnormal results of thyroid function studies; M10.9 Gout, unspecified
CPT/HCPCS: 36415; 80053; 82533; 83930; 83935; 84300; 84443; 84550; 85025

== ENCOUNTER → 2019-04-29 | Outpatient (CLI) | payer OTHER ==
[~2019-04-29] MED LIST changes: -AMLO10TA12 PO; +AMLO10TA13 PO; -AMLO5TAB13 PO; +AMLO5TAB15 PO; +ASPI-404 PO; -ASPI81TA27 PO; +LOSA-39 OR; -LOSA-49 OR; -TIMO0.5S38 EACHEYE; +TIMO0.5S66 EACHEYE
[2019-04-29 11:20] LABS: Basophils # (auto) 0.1 uL; Basophils % (auto) 0.9 % (0.0-2.0); Eosinophils # (auto) 0.1 uL; Eosinophils % (auto) 1.9 % (0.0-7.0); Hematocrit 40.1 % (36.0-46.0); Hemoglobin 13.7 g/dL (12.2-16.2); Lymphocytes # (auto) 1.9 uL; Lymphocytes % (auto) 25.6 % (10.0-50.0); Mean Corpuscular Hemoglobin 30.4 pg (28.0-32.0); Mean Corpuscular Hgb Conc. 34.1 g/dL (32.0-36.0); Mean Corpuscular Volume 89.1 fL (80.0-100.0); Monocytes # (auto) 0.6 uL; Monocytes % (auto) 7.7 % (0.0-12.0); Neutrophils # (auto) 4.7 uL; Neutrophils % (auto) 63.9 % (37.0-80.0); Platelet Count (auto) 214 10^3/uL (140-450); Red Cell Distribution Width 13.8 % (11.8-14.3); White Blood Cell 7.4 10^3/uL (4.4-10.8)
[2019-04-29 12:32] LABS: Potassium 4.5 mmol/L (3.5-5.1)
[2019-04-29 12:51] LABS: Albumin 3.9 g/dL (3.4-5.0); BUN/Creatinine Ratio 26.1; Bilirubin, Total 0.6 mg/dL (0.2-1.0); Calcium 8.9 mg/dL (8.5-10.1); Total Protein 7.4 g/dL (6.4-8.2)
== END | disposition home or self-care (01) ==
LOC: LAB 11:06
PROVIDERS: ATTEND Physician Assistant
DX: L20.9 Atopic dermatitis, unspecified (principal); Z79.899 Other long term (current) drug therapy
CPT/HCPCS: 36415; 80053; 85025

== ENCOUNTER → 2019-05-21 | Outpatient (CLI) | payer OTHER ==
[~2019-05-21] MED LIST changes: +FURO40TA4 PO; +ROSU40TA PO
[2019-05-21 07:58] LABS: Basophils # (auto) 0 uL; Basophils % (auto) 0.7 % (0.0-2.0); Eosinophils # (auto) 0.1 uL; Eosinophils % (auto) 2.3 % (0.0-7.0); Hematocrit 39.5 % (36.0-46.0); Hemoglobin 13.5 g/dL (12.2-16.2); Lymphocytes # (auto) 1.6 uL; Lymphocytes % (auto) 26.7 % (10.0-50.0); Mean Corpuscular Hemoglobin 30.8 pg (28.0-32.0); Mean Corpuscular Hgb Conc. 34.2 g/dL (32.0-36.0); Mean Corpuscular Volume 89.9 fL (80.0-100.0); Monocytes # (auto) 0.7 uL; Monocytes % (auto) 10.7 % (0.0-12.0); Neutrophils # (auto) 3.6 uL; Neutrophils % (auto) 59.6 % (37.0-80.0); Platelet Count (auto) 199 10^3/uL (140-450); Red Cell Distribution Width 13.7 % (11.8-14.3); White Blood Cell 6.1 10^3/uL (4.4-10.8)
[2019-05-21 08:42] LABS: Albumin 3.8 g/dL (3.4-5.0); BUN/Creatinine Ratio 20.9; Calcium 8.8 mg/dL (8.5-10.1)
[2019-05-21 09:04] LABS: Bilirubin, Total 0.6 mg/dL (0.2-1.0); Total Protein 6.9 g/dL (6.4-8.2)
== END | disposition home or self-care (01) ==
LOC: LAB 07:40
PROVIDERS: ATTEND Internal Medicine
DX: E78.2 Mixed hyperlipidemia (principal); E87.1 Hypo-osmolality and hyponatremia; E87.6 Hypokalemia; E87.8 Other disorders of electrolyte and fluid balance, not elsewhere classified; L20.9 Atopic dermatitis, unspecified; Z79.899 Other long term (current) drug therapy
CPT/HCPCS: 36415; 80053; 80061; 85025

== ENCOUNTER → 2019-07-02 | Outpatient (CLI) | payer OTHER ==
[~2019-07-02] MED LIST changes: -AMLO10TA13 PO; -ASPI81CH43 OR; -BUSP10TA90 OR; -CLON0.1T OR; -FLUC150T41 PO; -GABA800T97 OR; -IBUP800T24 PO; -LOSA-39 OR; -LOSA100T33 PO; -PIME1CRE TOP; -TRAM50TA2 PO
[2019-07-02 10:06] LABS: Urine Blood Negative /uL (Negative); Urine Specific Gravity 1.014 (1.001-1.035)
[2019-07-02 10:22] LABS: Sodium Urine 47 mmol/L (40-220)
== END | disposition home or self-care (01) ==
LOC: LAB 09:25
PROVIDERS: ATTEND Student in an Organized Health Care Education/Training Program
DX: E87.1 Hypo-osmolality and hyponatremia (principal); N39.0 Urinary tract infection, site not specified; I12.9 Hypertensive chronic kidney disease with stage 1 through stage 4 chronic kidney disease, or unspecified chronic kidney disease; N18.3 Chronic kidney disease, stage 3 (moderate)
CPT/HCPCS: 36415; 81003; 83935; 84300

== ENCOUNTER 2019-07-03 08:01 | Day surgery (SDC) | payer OTHER ==
[2019-07-01 09:35] LABS: Basophils # (auto) 0 uL; Basophils % (auto) 0.5 % (0.0-2.0); Eosinophils # (auto) 0.1 uL; Eosinophils % (auto) 1.8 % (0.0-7.0); Hematocrit 40.7 % (36.0-46.0); Hemoglobin 13.6 g/dL (12.2-16.2); Lymphocytes # (auto) 1.5 uL; Lymphocytes % (auto) 22.5 % (10.0-50.0); Mean Corpuscular Hgb Conc. 33.4 g/dL (32.0-36.0); Mean Corpuscular Volume 89.9 fL (80.0-100.0); Monocytes # (auto) 0.6 uL; Monocytes % (auto) 9.1 % (0.0-12.0); Neutrophils # (auto) 4.3 uL; Neutrophils % (auto) 66.1 % (37.0-80.0); Platelet Count (auto) 197 10^3/uL (140-450); Red Blood Cells 4.52 10^6/uL (4.0-5.20); Red Cell Distribution Width 13.1 % (11.8-14.3); White Blood Cell 6.6 10^3/uL (4.4-10.8)
[2019-07-01 10:01] LABS: INR < 0.93 (0.9-1.15); Partial Thromboplastin Time 29.1 sec (23.64-32.05)
[2019-07-01 10:16] LABS: Albumin 3.8 g/dL (3.4-5.0); Calcium 8.6 mg/dL (8.5-10.1); Potassium 3.8 mmol/L (3.5-5.1)
[2019-07-01 10:19] LABS: Bilirubin, Total 0.5 mg/dL (0.2-1.0)
[~2019-07-03] VITALS: Ht 165.1 cm; Wt 74.8 kg
[2019-07-03] MEDS ORDERED: VANCOMYCIN 1GM/250ML 250 ML IV ONE ×2 (09:45→09:46)
[2019-07-03] MEDS ORDERED: LIDOCAINE 2%HCL (LOCAL ANESTH.) INJ 20ML MDV ONE (09:52)
[2019-07-03] MEDS ORDERED: VANCOMYCIN HCL 1000 MG VL ONE (09:56)
[2019-07-03] MEDS ORDERED: MIDAZOLAM HCL 1MG/1ML-2 ML VIAL ONE (09:56)
[2019-07-03] MEDS ORDERED: fentaNYL CITRATE 100 MCG/2 ML VL ONE (09:56)
[2019-07-03] MEDS ORDERED: ACETAMINOPHEN 325 MG TAB PO PRN (11:45)
[2019-07-03] MEDS ORDERED: HYDROcodone-ACET 5/325MG TAB PO PRN (11:45)
== END 2019-07-03 12:45 | disposition home or self-care (01) ==
LOC: CATH 08:01
PROVIDERS: ATTEND Internal Medicine
DX: Z45.09 Encounter for adjustment and management of other cardiac device (principal); R55 Syncope and collapse; I10 Essential (primary) hypertension; E87.1 Hypo-osmolality and hyponatremia; I83.90 Asymptomatic varicose veins of unspecified lower extremity; E78.5 Hyperlipidemia, unspecified; F41.9 Anxiety disorder, unspecified; Z87.898 Personal history of other specified conditions; Z79.82 Long term (current) use of aspirin; Z79.899 Other long term (current) drug therapy; Z87.891 Personal history of nicotine dependence; Z98.51 Tubal ligation status; Z88.1 Allergy status to other antibiotic agents; Z88.8 Allergy status to other drugs, medicaments and biological substances; Z88.0 Allergy status to penicillin; Z91.048 Other nonmedicinal substance allergy status
CPT/HCPCS: 33285; 36415; 80053; 85025; 85610; 85730; 93005; C1764; J2250; J3010; J3370; J7030; 99152

== ENCOUNTER → 2019-08-23 | Outpatient (CLI) | payer OTHER ==
[~2019-08-23] MED LIST changes: +DOXE10CA PO; +HYDR-3682 PO
[2019-08-23 11:59] LABS: Basophils # (auto) 0.1 uL; Basophils % (auto) 0.7 % (0.0-2.0); Eosinophils # (auto) 0.1 uL; Hematocrit 40.6 % (36.0-46.0); Hemoglobin 13.9 g/dL (12.2-16.2); Lymphocytes # (auto) 1.9 uL; Lymphocytes % (auto) 25.2 % (10.0-50.0); Mean Corpuscular Hemoglobin 30.2 pg (28.0-32.0); Mean Corpuscular Hgb Conc. 34.2 g/dL (32.0-36.0); Mean Corpuscular Volume 88.3 fL (80.0-100.0); Monocytes # (auto) 0.7 uL; Monocytes % (auto) 9.5 % (0.0-12.0); Neutrophils # (auto) 4.6 uL; Neutrophils % (auto) 62.6 % (37.0-80.0); Platelet Count (auto) 236 10^3/uL (140-450); Red Cell Distribution Width 12.7 % (11.8-14.3); White Blood Cell 7.4 10^3/uL (4.4-10.8)
[2019-08-23 12:11] LABS: INR 0.98 (0.9-1.15); Partial Thromboplastin Time 29.6 sec (23.64-32.05)
[2019-08-23 13:14] LABS: Albumin 3.6 g/dL (3.4-5.0); Potassium 4.1 mmol/L (3.5-5.1)
[2019-08-23 13:27] LABS: Bilirubin, Total 0.5 mg/dL (0.2-1.0); Total Protein 7.5 g/dL (6.4-8.2)
== END | disposition home or self-care (01) ==
LOC: LAB 11:34
PROVIDERS: ATTEND Internal Medicine
DX: Z01.810 Encounter for preprocedural cardiovascular examination (principal); I44.1 Atrioventricular block, second degree; I10 Essential (primary) hypertension; E78.5 Hyperlipidemia, unspecified; F41.9 Anxiety disorder, unspecified; Z88.1 Allergy status to other antibiotic agents; Z88.0 Allergy status to penicillin; Z91.048 Other nonmedicinal substance allergy status
CPT/HCPCS: 36415; 80053; 85025; 85610; 85730

== ENCOUNTER → 2019-10-07 | Outpatient (CLI) | payer OTHER ==
[~2019-10-07] MED LIST changes: +OMEG100062 PO; +[UNRECOGNIZED DRUG - CODE] PO
[2019-10-07 10:29] LABS: Basophils # (auto) 0 uL; Basophils % (auto) 0.5 % (0.0-2.0); Eosinophils # (auto) 0.2 uL; Hematocrit 41.3 % (36.0-46.0); Hemoglobin 13.9 g/dL (12.2-16.2); Lymphocytes # (auto) 1.7 uL; Lymphocytes % (auto) 24.5 % (10.0-50.0); Mean Corpuscular Hemoglobin 29.9 pg (28.0-32.0); Mean Corpuscular Hgb Conc. 33.7 g/dL (32.0-36.0); Mean Corpuscular Volume 88.8 fL (80.0-100.0); Monocytes # (auto) 0.7 uL; Monocytes % (auto) 10.6 % (0.0-12.0); Neutrophils # (auto) 4.1 uL; Neutrophils % (auto) 61.4 % (37.0-80.0); Platelet Count (auto) 184 10^3/uL (140-450); Red Blood Cells 4.65 10^6/uL (4.0-5.20); Red Cell Distribution Width 13.8 % (11.8-14.3); White Blood Cell 6.7 10^3/uL (4.4-10.8)
[2019-10-07 10:49] LABS: BUN/Creatinine Ratio 27.3; Calcium 9.2 mg/dL (8.5-10.1); Potassium 3.9 mmol/L (3.5-5.1)
[2019-10-07 11:20] LABS: Sodium Urine 41 mmol/L (40-220)
[2019-10-07 11:21] LABS: Creatinine, Urine < 0.1 mg/dL (30.0-125.0)
== END | disposition home or self-care (01) ==
LOC: LAB 10:13
PROVIDERS: ATTEND Student in an Organized Health Care Education/Training Program
DX: R80.9 Proteinuria, unspecified (principal)
CPT/HCPCS: 36415; 80048; 82570; 83935; 84133; 84300; 84443; 84550; 85025

== ENCOUNTER → 2019-10-24 | Outpatient (CLI) | payer OTHER | END | disposition home or self-care (01) | LOC: LAB 12:35 | PROVIDERS: ATTEND Podiatrist Foot & Ankle Surgery | DX: L02.612 Cutaneous abscess of left foot (principal) | CPT/HCPCS: 87077; 87186; 87205 ==

== ENCOUNTER → 2020-04-07 | Outpatient (CLI) | payer OTHER ==
[~2020-04-07] MED LIST changes: -LATA0.0015 EACHEYE; +LATA0.0019 EACHEYE
[2020-04-07 07:34] LABS: Basophils # (auto) 0 10 ^3/uL (0-0.2); Basophils % (auto) 0.8 % (0.0-2.0); Eosinophils # (auto) 0.1 10 ^3/uL (0-0.8); Eosinophils % (auto) 2.2 % (0.0-7.0); Hematocrit 41.7 % (36.0-46.0); Hemoglobin 13.8 g/dL (12.2-16.2); Lymphocytes # (auto) 1.7 10 ^3/uL (0.4-5.4); Lymphocytes % (auto) 34.4 % (10.0-50.0); Mean Corpuscular Hemoglobin 29.7 pg (28.0-32.0); Mean Corpuscular Hgb Conc. 33.1 g/dL (32.0-36.0); Mean Corpuscular Volume 89.7 fL (80.0-100.0); Monocytes # (auto) 0.6 10 ^3/uL (0-1.3); Monocytes % (auto) 11.2 % (0.0-12.0); Neutrophils # (auto) 2.6 10 ^3/uL (1.6-8.6); Neutrophils % (auto) 51.4 % (37.0-80.0); Nucleated Red Blood Cells % 0.1 %; Platelet Count (auto) 173 10^3/uL (140-450); Red Blood Cells 4.65 10^6/uL (4.0-5.20); Red Cell Distribution Width 13.3 % (11.8-14.3); White Blood Cell 5.1 10^3/uL (4.4-10.8)
[2020-04-07 07:38] LABS: Urine Bacteria NONE SEEN /hpf (None Seen); Urine Blood Negative /uL (Negative); Urine Hyaline Cast FEW /lpf (0 - 2); Urine Mucus FEW (None Seen); Urine Specific Gravity 1.015 (1.001-1.035); Urine WBC 2 /hpf (0 - 5)
[2020-04-07 08:01] LABS: Albumin 3.9 g/dL (3.4-5.0); Potassium 3.9 mmol/L (3.5-5.1)
[2020-04-07 08:06] LABS: BUN/Creatinine Ratio 24.6; Bilirubin, Total 0.6 mg/dL (0.2-1.0); Total Protein 7.1 g/dL (6.4-8.2)
== END | disposition home or self-care (01) ==
LOC: LAB 07:06
PROVIDERS: ATTEND Student in an Organized Health Care Education/Training Program
DX: I12.9 Hypertensive chronic kidney disease with stage 1 through stage 4 chronic kidney disease, or unspecified chronic kidney disease (principal); N18.3 Chronic kidney disease, stage 3 (moderate); N39.0 Urinary tract infection, site not specified; D63.1 Anemia in chronic kidney disease; R76.0 Raised antibody titer; I49.5 Sick sinus syndrome; E78.5 Hyperlipidemia, unspecified; E87.1 Hypo-osmolality and hyponatremia; Z00.00 Encounter for general adult medical examination without abnormal findings
CPT/HCPCS: 36415; 80053; 80061; 81001; 83935; 84300; 85025; 86038

== ENCOUNTER → 2020-10-07 | Outpatient (CLI) | payer OTHER ==
[~2020-10-07] MED LIST changes: -ASPI-404 PO; +ASPI-543 PO
[2020-10-07 07:55] LABS: Basophils # (auto) 0 10 ^3/uL (0-0.2); Basophils % (auto) 0.8 % (0.0-2.0); Eosinophils # (auto) 0.2 10 ^3/uL (0-0.8); Eosinophils % (auto) 4.2 % (0.0-7.0); Hemoglobin 13.2 g/dL (12.2-16.2); Lymphocytes # (auto) 1.6 10 ^3/uL (0.4-5.4); Mean Corpuscular Hemoglobin 30.4 pg (28.0-32.0); Mean Corpuscular Hgb Conc. 33.8 g/dL (32.0-36.0); Mean Corpuscular Volume 89.9 fL (80.0-100.0); Monocytes # (auto) 0.6 10 ^3/uL (0-1.3); Monocytes % (auto) 10.8 % (0.0-12.0); Neutrophils # (auto) 2.8 10 ^3/uL (1.6-8.6); Neutrophils % (auto) 53.2 % (37.0-80.0); Nucleated Red Blood Cells % 0.1 %; Platelet Count (auto) 192 10^3/uL (140-450); Red Blood Cells 4.34 10^6/uL (4.0-5.20); White Blood Cell 5.3 10^3/uL (4.4-10.8)
[2020-10-07 08:49] LABS: Urine Bacteria NONE SEEN /hpf (None Seen); Urine Blood Negative /uL (Negative); Urine Mucus FEW (None Seen); Urine Specific Gravity 1.016 (1.001-1.035); Urine WBC 3 /hpf (0 - 5)
[2020-10-07 09:15] LABS: Albumin 3.6 g/dL (3.4-5.0); Bilirubin, Total 0.6 mg/dL (0.2-1.0); Calcium 9.1 mg/dL (8.5-10.1); Potassium 4.1 mmol/L (3.5-5.1); Total Protein 6.8 g/dL (6.4-8.2)
== END | disposition home or self-care (01) ==
LOC: LAB 07:17
PROVIDERS: ATTEND Student in an Organized Health Care Education/Training Program
DX: N18.30 Chronic kidney disease, stage 3 unspecified (principal); D63.1 Anemia in chronic kidney disease; N39.0 Urinary tract infection, site not specified
CPT/HCPCS: 36415; 80053; 81001; 83935; 84300; 85025

== ENCOUNTER → 2020-12-08 | Outpatient (CLI) | payer OTHER ==
[~2020-12-08] MED LIST changes: +AMLO-489 PO; -AMLO5TAB15 PO; +BIOT300T5 PO; -[UNRECOGNIZED DRUG - CODE] PO
[2020-12-08 09:04] LABS: Albumin 3.9 g/dL (3.4-5.0); Calcium 9.1 mg/dL (8.5-10.1); Potassium 3.9 mmol/L (3.5-5.1)
[2020-12-08 09:08] LABS: BUN/Creatinine Ratio 15.7; Bilirubin, Total 0.8 mg/dL (0.2-1.0); Total Protein 7.4 g/dL (6.4-8.2)
== END | disposition home or self-care (01) ==
LOC: LAB 07:56
PROVIDERS: ATTEND Internal Medicine
DX: I10 Essential (primary) hypertension (principal)
CPT/HCPCS: 36415; 80053

== ENCOUNTER → 2021-04-06 | Outpatient (CLI) | payer OTHER ==
[2021-04-06 10:25] LABS: Basophils # (auto) 0.1 10 ^3/uL (0-0.2); Basophils % (auto) 0.6 % (0.0-2.0); Eosinophils # (auto) 0.1 10 ^3/uL (0-0.8); Hematocrit 38.4 % (36.0-46.0); Hemoglobin 13.5 g/dL (12.2-16.2); Lymphocytes # (auto) 1.9 10 ^3/uL (0.4-5.4); Lymphocytes % (auto) 22.7 % (10.0-50.0); Mean Corpuscular Hgb Conc. 35.1 g/dL (32.0-36.0); Mean Corpuscular Volume 88.5 fL (80.0-100.0); Monocytes # (auto) 0.7 10 ^3/uL (0-1.3); Monocytes % (auto) 8.7 % (0.0-12.0); Neutrophils # (auto) 5.5 10 ^3/uL (1.6-8.6); Nucleated Red Blood Cells % 0.1 %; Platelet Count (auto) 196 10^3/uL (140-450); Red Blood Cells 4.34 10^6/uL (4.0-5.20); Red Cell Distribution Width 12.9 % (11.8-14.3); White Blood Cell 8.3 10^3/uL (4.4-10.8)
[2021-04-06 10:34] LABS: Urine Blood Negative /uL (Negative); Urine Specific Gravity 1.002 (1.001-1.035)
[2021-04-06 10:47] LABS: Sodium Urine 26 mmol/L (40-220)
[2021-04-06 11:00] LABS: Albumin 3.7 g/dL (3.4-5.0); Calcium 8.6 mg/dL (8.5-10.1); Potassium 3.9 mmol/L (3.5-5.1)
[2021-04-06 11:05] LABS: BUN/Creatinine Ratio 25.8; Bilirubin, Total 0.6 mg/dL (0.2-1.0); Total Protein 6.6 g/dL (6.4-8.2)
== END | disposition home or self-care (01) ==
LOC: LAB 09:56
PROVIDERS: ATTEND Student in an Organized Health Care Education/Training Program
DX: N18.30 Chronic kidney disease, stage 3 unspecified (principal); D63.1 Anemia in chronic kidney disease; N39.0 Urinary tract infection, site not specified; M10.9 Gout, unspecified; R80.9 Proteinuria, unspecified
CPT/HCPCS: 36415; 80053; 81003; 83935; 84300; 85025; 85049

== ENCOUNTER → 2021-05-25 | Outpatient (CLI) | payer OTHER ==
[2021-05-25 08:10] LABS: Basophils # (auto) 0 10 ^3/uL (0-0.2); Basophils % (auto) 0.7 % (0.0-2.0); Eosinophils # (auto) 0.1 10 ^3/uL (0-0.8); Eosinophils % (auto) 1.8 % (0.0-7.0); Hematocrit 39.4 % (36.0-46.0); Hemoglobin 13.9 g/dL (12.2-16.2); Lymphocytes % (auto) 34.4 % (10.0-50.0); Mean Corpuscular Hemoglobin 31.4 pg (28.0-32.0); Mean Corpuscular Hgb Conc. 35.3 g/dL (32.0-36.0); Mean Corpuscular Volume 88.8 fL (80.0-100.0); Monocytes # (auto) 0.5 10 ^3/uL (0-1.3); Monocytes % (auto) 9.5 % (0.0-12.0); Neutrophils % (auto) 53.6 % (37.0-80.0); Red Blood Cells 4.43 10^6/uL (4.0-5.20); Red Cell Distribution Width 12.8 % (11.8-14.3); White Blood Cell 5.7 10^3/uL (4.4-10.8)
[2021-05-25 08:46] LABS: Albumin 3.8 g/dL (3.4-5.0); Calcium 8.8 mg/dL (8.5-10.1); Potassium 3.8 mmol/L (3.5-5.1)
[2021-05-25 08:51] LABS: BUN/Creatinine Ratio 21.5; Bilirubin, Total 0.7 mg/dL (0.2-1.0); Total Protein 7.2 g/dL (6.4-8.2)
[2021-05-25 08:58] LABS: Protein, Urine 17.9 mg/dL (0.0-11.9)
== END | disposition home or self-care (01) ==
LOC: LAB 07:28
PROVIDERS: ATTEND Nurse Practitioner Family
DX: I12.9 Hypertensive chronic kidney disease with stage 1 through stage 4 chronic kidney disease, or unspecified chronic kidney disease (principal); N18.31 Chronic kidney disease, stage 3a; E21.3 Hyperparathyroidism, unspecified; M10.9 Gout, unspecified; R80.9 Proteinuria, unspecified; E56.9 Vitamin deficiency, unspecified
CPT/HCPCS: 36415; 80053; 80061; 82306; 82570; 83930; 84156; 84443; 84550; 85025

== ENCOUNTER → 2021-10-21 | Outpatient (CLI) | payer OTHER ==
[2021-10-21 14:49] LABS: Urine Bacteria NONE SEEN /hpf (None Seen); Urine Blood Negative /uL (Negative); Urine Specific Gravity 1.005 (1.001-1.035); Urine WBC <1 /hpf (0 - 5)
[2021-10-21 15:25] LABS: Albumin 4.3 g/dL (3.4-5.0); Calcium 9.5 mg/dL (8.5-10.1); Potassium 3.9 mmol/L (3.5-5.1)
[2021-10-21 15:30] LABS: BUN/Creatinine Ratio 25.8; Bilirubin, Total 0.6 mg/dL (0.2-1.0); Total Protein 8.1 g/dL (6.4-8.2)
== END | disposition home or self-care (01) ==
LOC: LAB 14:25
PROVIDERS: ATTEND Student in an Organized Health Care Education/Training Program
DX: Z13.228 Encounter for screening for other metabolic disorders (principal); R82.90 Unspecified abnormal findings in urine; E87.1 Hypo-osmolality and hyponatremia
CPT/HCPCS: 36415; 80053; 81001; 83935

== ENCOUNTER → 2021-11-02 | Outpatient (CLI) | payer OTHER ==
[~2021-11-02] VITALS: Ht 162.6 cm; Wt 69.4 kg
[~2021-11-02] MED LIST changes: +ADENOSINE 58 MG in GIVE UN-DILUTED 0 ML IV STA
[2021-11-02 09:18] VITALS: BP 135/72
== END | disposition home or self-care (01) ==
LOC: XYW 07:42
PROVIDERS: ATTEND Internal Medicine
DX: Z45.018 Encounter for adjustment and management of other part of cardiac pacemaker (principal); I48.0 Paroxysmal atrial fibrillation; I47.2 Ventricular tachycardia
CPT/HCPCS: 78452; 93017; A9500; J0153

== ENCOUNTER → 2021-12-07 | Outpatient (CLI) | payer OTHER ==
[~2021-12-07] MED LIST changes: -ADENOSINE 58 MG in GIVE UN-DILUTED 0 ML IV STA
== END | disposition home or self-care (01) ==
LOC: XYW 12:27
PROVIDERS: ATTEND Internal Medicine
DX: I35.1 Nonrheumatic aortic (valve) insufficiency (principal); I48.0 Paroxysmal atrial fibrillation
CPT/HCPCS: 93306

== ENCOUNTER → 2022-02-17 | Outpatient (CLI) | payer OTHER | END | disposition home or self-care (01) | LOC: LAB 14:06 | PROVIDERS: ATTEND Podiatrist Foot & Ankle Surgery | DX: M86.9 Osteomyelitis, unspecified (principal) | CPT/HCPCS: 87070; 87077; 87186; 87205 ==

== ENCOUNTER → 2022-04-18 | Outpatient (CLI) | payer OTHER ==
[2022-04-18 10:45] LABS: Basophils # (auto) 0 10 ^3/uL (0-0.2); Basophils % (auto) 0.5 % (0.0-2.0); Eosinophils # (auto) 0.1 10 ^3/uL (0-0.8); Eosinophils % (auto) 1.7 % (0.0-7.0); Hemoglobin 13.6 g/dL (12.2-16.2); Lymphocytes # (auto) 1.9 10 ^3/uL (0.4-5.4); Lymphocytes % (auto) 28.9 % (10.0-50.0); Mean Corpuscular Hemoglobin 30.1 pg (28.0-32.0); Mean Corpuscular Hgb Conc. 33.3 g/dL (32.0-36.0); Mean Corpuscular Volume 90.3 fL (80.0-100.0); Monocytes # (auto) 0.7 10 ^3/uL (0-1.3); Monocytes % (auto) 10.7 % (0.0-12.0); Neutrophils # (auto) 3.8 10 ^3/uL (1.6-8.6); Neutrophils % (auto) 58.2 % (37.0-80.0); Red Blood Cells 4.54 10^6/uL (4.0-5.20); Red Cell Distribution Width 13.1 % (11.8-14.3); White Blood Cell 6.5 10^3/uL (4.4-10.8)
[2022-04-18 11:05] LABS: Calcium 8.8 mg/dL (8.5-10.1); Potassium 4.1 mmol/L (3.5-5.1)
[2022-04-18 11:09] LABS: BUN/Creatinine Ratio 24.3; Bilirubin, Total 0.7 mg/dL (0.2-1.0); Total Protein 7.4 g/dL (6.4-8.2)
== END | disposition home or self-care (01) ==
LOC: LAB 10:21
PROVIDERS: ATTEND Student in an Organized Health Care Education/Training Program
DX: N18.2 Chronic kidney disease, stage 2 (mild) (principal); D63.1 Anemia in chronic kidney disease; E87.1 Hypo-osmolality and hyponatremia
CPT/HCPCS: 36415; 80053; 83935; 84300; 85025

== ENCOUNTER → 2022-09-30 | Outpatient (CLI) | payer OTHER ==
[2022-09-30 08:43] LABS: Basophils # (auto) 0 10 ^3/uL (0-0.2); Basophils % (auto) 0.8 % (0.0-2.0); Eosinophils # (auto) 0.2 10 ^3/uL (0-0.8); Eosinophils % (auto) 2.9 % (0.0-7.0); Hematocrit 39.9 % (36.0-46.0); Hemoglobin 13.8 g/dL (12.2-16.2); Lymphocytes # (auto) 1.7 10 ^3/uL (0.4-5.4); Mean Corpuscular Hemoglobin 30.9 pg (28.0-32.0); Mean Corpuscular Hgb Conc. 34.4 g/dL (32.0-36.0); Mean Corpuscular Volume 89.7 fL (80.0-100.0); Monocytes # (auto) 0.6 10 ^3/uL (0-1.3); Monocytes % (auto) 10.2 % (0.0-12.0); Neutrophils # (auto) 3.5 10 ^3/uL (1.6-8.6); Neutrophils % (auto) 58.1 % (37.0-80.0); Nucleated Red Blood Cells % 0.1 %; Red Blood Cells 4.45 10^6/uL (4.0-5.20); Urine Bacteria NONE SEEN /hpf (None Seen); Urine Blood Negative /uL (Negative); Urine Specific Gravity 1.005 (1.001-1.035); Urine WBC <1 /hpf (0 - 5); White Blood Cell 6.1 10^3/uL (4.4-10.8)
[2022-09-30 09:09] LABS: Potassium 3.9 mmol/L (3.5-5.1)
[2022-09-30 09:10] LABS: Protein, Urine < 5 mg/dL (0.0-11.9)
[2022-09-30 09:14] LABS: Creatinine, Urine < 9 mg/dL (30.0-125.0)
[2022-09-30 09:18] LABS: BUN/Creatinine Ratio 21.5; Bilirubin, Total 0.9 mg/dL (0.2-1.0); Calcium 9.3 mg/dL (8.5-10.1); Total Protein 7.3 g/dL (6.4-8.2)
== END | disposition home or self-care (01) ==
LOC: LAB 08:07
PROVIDERS: ATTEND Nurse Practitioner Family
DX: Z00.00 Encounter for general adult medical examination without abnormal findings (principal); I13.0 Hypertensive heart and chronic kidney disease with heart failure and stage 1 through stage 4 chronic kidney disease, or unspecified chronic kidney disease; I50.9 Heart failure, unspecified; N18.31 Chronic kidney disease, stage 3a; F41.0 Panic disorder [episodic paroxysmal anxiety]; R80.9 Proteinuria, unspecified; R82.90 Unspecified abnormal findings in urine; E87.1 Hypo-osmolality and hyponatremia
CPT/HCPCS: 36415; 80053; 80061; 81001; 82306; 82570; 83930; 83935; 84156; 84439; 84443; 85025

== ENCOUNTER → 2022-12-06 | Outpatient (CLI) | payer OTHER ==
[2022-12-06 12:09] LABS: Basophils # (auto) 0 10 ^3/uL (0-0.2); Basophils % (auto) 0.6 % (0.0-2.0); Eosinophils # (auto) 0.2 10 ^3/uL (0-0.8); Eosinophils % (auto) 2.3 % (0.0-7.0); Hematocrit 40.6 % (36.0-46.0); Lymphocytes % (auto) 27.6 % (10.0-50.0); Mean Corpuscular Hemoglobin 31.1 pg (28.0-32.0); Mean Corpuscular Hgb Conc. 34.5 g/dL (32.0-36.0); Mean Corpuscular Volume 90.1 fL (80.0-100.0); Monocytes # (auto) 0.8 10 ^3/uL (0-1.3); Monocytes % (auto) 10.8 % (0.0-12.0); Neutrophils # (auto) 4.2 10 ^3/uL (1.6-8.6); Neutrophils % (auto) 58.7 % (37.0-80.0); Red Blood Cells 4.51 10^6/uL (4.0-5.20); Red Cell Distribution Width 13.3 % (11.8-14.3); White Blood Cell 7.2 10^3/uL (4.4-10.8)
[2022-12-06 12:24] LABS: Albumin 3.9 g/dL (3.4-5.0); BUN/Creatinine Ratio 28.3
[2022-12-06 12:27] LABS: Bilirubin, Total 0.8 mg/dL (0.2-1.0)
== END | disposition home or self-care (01) ==
LOC: LAB 11:05
DX: I10 Essential (primary) hypertension (principal); I48.0 Paroxysmal atrial fibrillation; E78.2 Mixed hyperlipidemia; Z87.898 Personal history of other specified conditions; Z95.0 Presence of cardiac pacemaker
CPT/HCPCS: 36415; 80053; 84443; 85025

== ENCOUNTER → 2023-01-13 | Outpatient (CLI) | payer OTHER ==
[2023-01-13 10:10] LABS: Urine WBC None Seen /hpf (0 - 5)
[2023-01-13 10:51] LABS: Urine Bacteria FEW /hpf (None Seen); Urine Blood Negative /uL (Negative); Urine Specific Gravity 1.002 (1.001-1.035)
[2023-01-13 10:59] LABS: Potassium 4.2 mmol/L (3.5-5.1)
[2023-01-13 11:03] LABS: Albumin 3.7 g/dL (3.4-5.0); BUN/Creatinine Ratio 20.3 (10.0-20.0); Bilirubin, Total 0.7 mg/dL (0.2-1.0); Magnesium 2.1 mg/dL (1.6-2.6); Total Protein 7.2 g/dL (6.4-8.2); Uric Acid 4.6 mg/dL (2.6-6.0)
== END | disposition home or self-care (01) ==
LOC: LAB 09:54
PROVIDERS: ATTEND Student in an Organized Health Care Education/Training Program
DX: N18.31 Chronic kidney disease, stage 3a (principal); E87.1 Hypo-osmolality and hyponatremia; R82.90 Unspecified abnormal findings in urine; M10.9 Gout, unspecified; E61.2 Magnesium deficiency
CPT/HCPCS: 36415; 80053; 81001; 83735; 83935; 84300; 84443; 84550

== ENCOUNTER → 2023-05-17 | Outpatient (CLI) | payer OTHER ==
[~2023-05-17] MED LIST changes: -AMLO-489 PO; +AMLO1TAB22 PO; +GABA-1251 PO; -GABA400C11 PO; -LATA0.0019 EACHEYE; +LATA0.008 EACHEYE; -POTA8TAB2 PO; +POTA8TAB38 PO; -ROSU40TA PO; +ROSU40TA81 PO
[2023-05-17 10:34] LABS: Basophils # (auto) 0.1 10 ^3/uL (0-0.2); Basophils % (auto) 0.7 % (0.0-2.0); Eosinophils # (auto) 0.1 10 ^3/uL (0-0.8); Eosinophils % (auto) 1.6 % (0.0-7.0); Hematocrit 41.4 % (36.0-46.0); Hemoglobin 13.8 g/dL (12.2-16.2); Mean Corpuscular Hemoglobin 30.3 pg (28.0-32.0); Mean Corpuscular Hgb Conc. 33.2 g/dL (32.0-36.0); Mean Corpuscular Volume 91.3 fL (80.0-100.0); Monocytes # (auto) 0.7 10 ^3/uL (0-1.3); Monocytes % (auto) 9.7 % (0.0-12.0); Neutrophils # (auto) 4.4 10 ^3/uL (1.6-8.6); Nucleated Red Blood Cells % 0.1 %; Red Blood Cells 4.54 10^6/uL (4.0-5.20); Red Cell Distribution Width 13.8 % (11.8-14.3); White Blood Cell 7.2 10^3/uL (4.4-10.8)
[2023-05-17 10:59] LABS: Potassium 4.2 mmol/L (3.5-5.1)
[2023-05-17 11:12] LABS: Albumin 3.8 g/dL (3.4-5.0); BUN/Creatinine Ratio 23.2 (10.0-20.0); Bilirubin, Total 0.6 mg/dL (0.2-1.0); Calcium 8.6 mg/dL (8.5-10.1); Magnesium 2.3 mg/dL (1.6-2.6); Phosphorus 3.7 mg/dL (2.5-4.90); Total Protein 7.1 g/dL (6.4-8.2); Uric Acid 6.1 mg/dL (2.6-6.0)
== END | disposition home or self-care (01) ==
LOC: LAB 10:03
PROVIDERS: ATTEND Student in an Organized Health Care Education/Training Program
DX: E83.39 Other disorders of phosphorus metabolism (principal); M10.9 Gout, unspecified; D63.1 Anemia in chronic kidney disease; N18.31 Chronic kidney disease, stage 3a; E87.1 Hypo-osmolality and hyponatremia
CPT/HCPCS: 36415; 80053; 83735; 83935; 83970; 84100; 84550; 85025

== ENCOUNTER → 2023-08-09 | Outpatient (CLI) | payer OTHER ==
[2023-08-09 09:39] LABS: Basophils # (auto) 0 10 ^3/uL (0-0.2); Basophils % (auto) 0.8 % (0.0-2.0); Eosinophils # (auto) 0.1 10 ^3/uL (0-0.8); Eosinophils % (auto) 1.7 % (0.0-7.0); Hematocrit 45.3 % (36.0-46.0); Hemoglobin 15.1 g/dL (12.2-16.2); Lymphocytes # (auto) 1.9 10 ^3/uL (0.4-5.4); Lymphocytes % (auto) 31.8 % (10.0-50.0); Mean Corpuscular Hemoglobin 30.6 pg (28.0-32.0); Mean Corpuscular Hgb Conc. 33.4 g/dL (32.0-36.0); Mean Corpuscular Volume 91.7 fL (80.0-100.0); Monocytes # (auto) 0.6 10 ^3/uL (0-1.3); Monocytes % (auto) 10.7 % (0.0-12.0); Neutrophils # (auto) 3.3 10 ^3/uL (1.6-8.6); Nucleated Red Blood Cells % 0.2 %; Red Blood Cells 4.94 10^6/uL (4.0-5.20); Red Cell Distribution Width 13.2 % (11.8-14.3); Urine Bacteria NONE SEEN /hpf (None Seen); Urine Blood Negative /uL (Negative); Urine Clarity Clear (Clear); Urine Color Colorless (Yellow); Urine Protein, UAD Negative (Negative); Urine Specific Gravity 1.004 (1.001-1.035); Urine Urobilinogen Normal (Negative); Urine WBC <1 /hpf (0 - 5)
[2023-08-09 11:01] LABS: Alanine Aminotransferase 17 U/L (7-40); Albumin 4.7 g/dL (3.2-4.8); Alkaline Phosphatase 85 U/L (46-116); Anion Gap 7 (5-15); Aspartate Aminotransferase 25 U/L (13-40); BUN/Creatinine Ratio 13.2 (10.0-20.0); Blood Urea Nitrogen 10 mg/dL (9-23); Carbon Dioxide 30 mmol/L (20-30); Chloride 102 mmol/L (98-107); Glucose 101 mg/dL (74-106); Potassium 4.1 mmol/L (3.5-5.1); Sodium 139 mmol/L (136-145)
[2023-08-09 11:02] LABS: Bilirubin, Total 1.1 mg/dL (0.2-1.0); Total Protein 7.4 g/dL (5.7-8.2)
[2023-08-09 11:22] LABS: Uric Acid 6.7 mg/dL (3.1-7.8)
== END | disposition home or self-care (01) ==
LOC: LAB 09:19
PROVIDERS: ATTEND Student in an Organized Health Care Education/Training Program
DX: N18.30 Chronic kidney disease, stage 3 unspecified (principal); D63.1 Anemia in chronic kidney disease; N39.0 Urinary tract infection, site not specified; R80.9 Proteinuria, unspecified; E21.3 Hyperparathyroidism, unspecified; M10.9 Gout, unspecified; E55.9 Vitamin D deficiency, unspecified; E11.21 Type 2 diabetes mellitus with diabetic nephropathy
CPT/HCPCS: 36415; 80053; 81001; 83935; 84550; 85025

== ENCOUNTER → 2023-09-13 | Outpatient (CLI) | payer OTHER ==
[2023-09-13 08:13] LABS: Basophils # (auto) 0 10 ^3/uL (0-0.2); Basophils % (auto) 0.7 % (0.0-2.0); Eosinophils # (auto) 0.1 10 ^3/uL (0-0.8); Eosinophils % (auto) 1.5 % (0.0-7.0); Hematocrit 43.3 % (36.0-46.0); Hemoglobin 14.3 g/dL (12.2-16.2); Lymphocytes # (auto) 1.7 10 ^3/uL (0.4-5.4); Lymphocytes % (auto) 27.4 % (10.0-50.0); Mean Corpuscular Hemoglobin 30.2 pg (28.0-32.0); Mean Corpuscular Hgb Conc. 33.1 g/dL (32.0-36.0); Mean Corpuscular Volume 91.3 fL (80.0-100.0); Monocytes # (auto) 0.6 10 ^3/uL (0-1.3); Monocytes % (auto) 9.1 % (0.0-12.0); Neutrophils # (auto) 3.8 10 ^3/uL (1.6-8.6); Neutrophils % (auto) 61.3 % (37.0-80.0); Nucleated Red Blood Cells % 0.1 %; Red Blood Cells 4.74 10^6/uL (4.0-5.20); Red Cell Distribution Width 13.1 % (11.8-14.3); White Blood Cell 6.2 10^3/uL (4.4-10.8)
[2023-09-13 08:49] LABS: Alanine Aminotransferase 20 U/L (7-40); Albumin 4.8 g/dL (3.2-4.8); Alkaline Phosphatase 85 U/L (46-116); Anion Gap 8 (5-15); Aspartate Aminotransferase 21 U/L (13-40); BUN/Creatinine Ratio 16.9 (10.0-20.0); Bilirubin, Total 1.1 mg/dL (0.2-1.0); Blood Urea Nitrogen 12 mg/dL (9-23); Carbon Dioxide 27 mmol/L (20-30); Chloride 102 mmol/L (98-107); Cholesterol 99 mg/dL (< 200); Glucose 104 mg/dL (74-106); HDL Cholesterol 41 mg/dL (40-59); LDL Cholesterol 43 mg/dL (< 100); Potassium 4.2 mmol/L (3.5-5.1); Sodium 137 mmol/L (136-145); Total Protein 7.2 g/dL (5.7-8.2); Triglycerides 107 mg/dL (< 150)
== END | disposition home or self-care (01) ==
LOC: LAB 07:55
PROVIDERS: ATTEND Nurse Practitioner Family
DX: Z00.01 Encounter for general adult medical examination with abnormal findings (principal); F41.9 Anxiety disorder, unspecified; I10 Essential (primary) hypertension
CPT/HCPCS: 36415; 80053; 80061; 82306; 84439; 84443; 85025

== ENCOUNTER → 2023-10-27 | Outpatient (CLI) | payer OTHER | END | disposition home or self-care (01) | LOC: LAB 14:30 | PROVIDERS: ATTEND Family Medicine | DX: D18.01 Hemangioma of skin and subcutaneous tissue (principal) | CPT/HCPCS: 88302 ==

== ENCOUNTER → 2024-07-31 | Outpatient (CLI) | payer OTHER ==
[2024-07-31 09:45] LABS: Urine Bacteria None Seen /hpf (None Seen)
[2024-07-31 10:02] LABS: Basophils # (auto) 0.1 10 ^3/uL (0-0.2); Basophils % (auto) 0.9 % (0.0-2.0); Eosinophils # (auto) 0.1 10 ^3/uL (0-0.8); Eosinophils % (auto) 2.3 % (0.0-7.0); Hematocrit 42.8 % (36.0-46.0); Hemoglobin 14.9 g/dL (12.2-16.2); Lymphocytes # (auto) 1.5 10 ^3/uL (0.4-5.4); Lymphocytes % (auto) 25.3 % (10.0-50.0); Mean Corpuscular Hemoglobin 32.1 pg (28.0-32.0); Mean Corpuscular Hgb Conc. 34.8 g/dL (32.0-36.0); Mean Corpuscular Volume 92.2 fL (80.0-100.0); Monocytes # (auto) 0.7 10 ^3/uL (0-1.3); Monocytes % (auto) 10.9 % (0.0-12.0); Neutrophils # (auto) 3.7 10 ^3/uL (1.6-8.6); Neutrophils % (auto) 60.6 % (37.0-80.0); Nucleated Red Blood Cells % 0.1 %; Platelet Count (auto) 221 10^3/uL (140-450); Red Blood Cells 4.64 10^6/uL (4.0-5.20)
[2024-07-31 10:19] LABS: Urine Blood Negative /uL (Negative); Urine Clarity Clear (Clear); Urine Color Colorless (Yellow); Urine Protein, UAD Negative (Negative); Urine Specific Gravity 1.004 (1.001-1.035); Urine Urobilinogen Normal (Negative); Urine WBC <1 /hpf (0 - 5)
[2024-07-31 11:00] LABS: Alanine Aminotransferase 41 U/L (7-40); Alkaline Phosphatase 117 U/L (46-116); Anion Gap 6 (5-15); Aspartate Aminotransferase 32 U/L (13-40); BUN/Creatinine Ratio 13.7 (10.0-20.0); Blood Urea Nitrogen 14 mg/dL (9-23); Calcium 10.2 mg/dL (8.7-10.4); Carbon Dioxide 30 mmol/L (20-31); Chloride 103 mmol/L (98-107); Glucose 99 mg/dL (74-106); Potassium 4.3 mmol/L (3.5-5.1); Sodium 139 mmol/L (136-145); Triglycerides 100 mg/dL (< 150)
[2024-07-31 11:01] LABS: Albumin 4.7 g/dL (3.2-4.8); LDL Cholesterol 48 mg/dL (< 100)
[2024-07-31 11:02] LABS: Bilirubin, Total 0.8 mg/dL (0.2-1.0); Cholesterol 115 mg/dL (< 200); HDL Cholesterol 52 mg/dL (40-59)
[2024-07-31 11:03] LABS: Total Protein 7.6 g/dL (5.7-8.2)
== END | disposition home or self-care (01) ==
LOC: LAB 09:32
PROVIDERS: ATTEND Internal Medicine
DX: Z00.01 Encounter for general adult medical examination with abnormal findings (principal); I48.0 Paroxysmal atrial fibrillation; I70.0 Atherosclerosis of aorta; E78.5 Hyperlipidemia, unspecified
CPT/HCPCS: 36415; 80053; 80061; 81001; 83036; 84439; 84443; 85025

== ENCOUNTER → 2024-08-19 | Outpatient (CLI) | payer OTHER | END | disposition home or self-care (01) | LOC: XYW 08:30 | PROVIDERS: ATTEND Internal Medicine | DX: I50.32 Chronic diastolic (congestive) heart failure (principal) | CPT/HCPCS: 93306 ==

== ENCOUNTER → 2024-08-28 | Outpatient (CLI) | payer OTHER ==
[2024-08-28 13:58] LABS: Basophils # (auto) 0.1 10 ^3/uL (0-0.2); Basophils % (auto) 0.9 % (0.0-2.0); Eosinophils # (auto) 0.2 10 ^3/uL (0-0.8); Hematocrit 45.9 % (36.0-46.0); Hemoglobin 15.4 g/dL (12.2-16.2); Lymphocytes # (auto) 1.6 10 ^3/uL (0.4-5.4); Lymphocytes % (auto) 26.9 % (10.0-50.0); Mean Corpuscular Hemoglobin 30.9 pg (28.0-32.0); Mean Corpuscular Hgb Conc. 33.6 g/dL (32.0-36.0); Mean Corpuscular Volume 91.8 fL (80.0-100.0); Monocytes # (auto) 0.7 10 ^3/uL (0-1.3); Monocytes % (auto) 12.4 % (0.0-12.0); Neutrophils # (auto) 3.4 10 ^3/uL (1.6-8.6); Neutrophils % (auto) 56.8 % (37.0-80.0); Nucleated Red Blood Cells % 0.1 %; Platelet Count (auto) 233 10^3/uL (140-450); Red Cell Distribution Width 13.8 % (11.8-14.3); White Blood Cell 5.9 10^3/uL (4.4-10.8)
[2024-08-28 14:17] LABS: Alanine Aminotransferase 67 U/L (7-40); Albumin 5.1 g/dL (3.2-4.8); Alkaline Phosphatase 152 U/L (46-116); Anion Gap 7 (5-15); Aspartate Aminotransferase 46 U/L (13-40); BUN/Creatinine Ratio 18.2 (10.0-20.0); Bilirubin, Total 0.8 mg/dL (0.2-1.0); Blood Urea Nitrogen 16 mg/dL (9-23); Calcium 10.4 mg/dL (8.7-10.4); Carbon Dioxide 30 mmol/L (20-31); Chloride 100 mmol/L (98-107); Glucose 107 mg/dL (74-106); Potassium 4.1 mmol/L (3.5-5.1); Sodium 137 mmol/L (136-145); Total Protein 7.9 g/dL (5.7-8.2)
== END | disposition home or self-care (01) ==
LOC: LAB 13:40
DX: I10 Essential (primary) hypertension (principal); I48.0 Paroxysmal atrial fibrillation; Z95.0 Presence of cardiac pacemaker; Z87.898 Personal history of other specified conditions; Z79.01 Long term (current) use of anticoagulants
CPT/HCPCS: 36415; 80053; 84439; 84443; 85025

== ENCOUNTER 2024-09-13 08:20 | Day surgery (SDC) | payer OTHER ==
[2024-09-09 10:22] LABS: Basophils # (auto) 0.1 10 ^3/uL (0-0.2); Eosinophils # (auto) 0.1 10 ^3/uL (0-0.8); Eosinophils % (auto) 1.6 % (0.0-7.0); Hematocrit 40.7 % (36.0-46.0); Lymphocytes # (auto) 1.3 10 ^3/uL (0.4-5.4); Lymphocytes % (auto) 21.5 % (10.0-50.0); Mean Corpuscular Hemoglobin 31.4 pg (28.0-32.0); Mean Corpuscular Hgb Conc. 34.4 g/dL (32.0-36.0); Mean Corpuscular Volume 91.4 fL (80.0-100.0); Monocytes % (auto) 16.2 % (0.0-12.0); Neutrophils # (auto) 3.7 10 ^3/uL (1.6-8.6); Neutrophils % (auto) 59.7 % (37.0-80.0); Platelet Count (auto) 216 10^3/uL (140-450); Red Blood Cells 4.45 10^6/uL (4.0-5.20); Red Cell Distribution Width 13.5 % (11.8-14.3); White Blood Cell 6.2 10^3/uL (4.4-10.8)
[2024-09-09 10:44] LABS: INR 1.07 (0.9-1.15); Partial Thromboplastin Time 30.7 SEC (24.5-34.5); Prothrombin Time 11.3 sec (9.3-11.8)
[2024-09-09 11:03] LABS: Alanine Aminotransferase 58 U/L (7-40); Albumin 4.3 g/dL (3.2-4.8); Alkaline Phosphatase 117 U/L (46-116); Anion Gap 7 (5-15); Aspartate Aminotransferase 47 U/L (13-40); Carbon Dioxide 28 mmol/L (20-31); Chloride 103 mmol/L (98-107); Glucose 65 mg/dL (74-106); Potassium 4.2 mmol/L (3.5-5.1); Sodium 138 mmol/L (136-145)
[2024-09-09 11:04] LABS: Bilirubin, Total 0.6 mg/dL (0.2-1.0)
[2024-09-09 11:05] LABS: BUN/Creatinine Ratio 16.7 (10.0-20.0); Blood Urea Nitrogen 15 mg/dL (9-23)
[2024-09-09 11:07] LABS: Total Protein 6.9 g/dL (5.7-8.2)
[~2024-09-13] VITALS: Ht 160 cm; Wt 67.1 kg
[~2024-09-13 08:20] MED LIST changes: +APIX5TAB PO; -BIOT300T5 PO; -DOXE10CA PO; +FLE50T PO; -GABA-1251 PO; +GLUC1CAP12 PO; -HYDR-3682 PO; +MAGNTAB16 OR; -OMEG100062 PO; +TRAZ-181 PO
[2024-09-13] MEDS ORDERED: NALOXONE HCL 0.4 MG/ML VIAL ONE (08:39)
[2024-09-13] MEDS ORDERED: diphenhdrAMINE HCL 50 MG/1 ML VL ONE ×2 (08:40→09:20)
[2024-09-13] MEDS ORDERED: FLUMAZENIL 0.1 MG/ML INJ 10ML MDV IV ONE (08:40)
[2024-09-13] MEDS ORDERED: MIDAZOLAM HCL 5 MG/ML-1ML VIAL ONE (08:40)
[2024-09-13] MEDS ORDERED: SODIUM CHLORIDE LOCK 0 ML ONE (08:40)
[2024-09-13] MEDS ORDERED: fentaNYL CITRATE 100 MCG/2 ML VL ONE (08:41)
[2024-09-13] MEDS ORDERED: SODIUM CHLORIDE LOCK 10 ML ONE (09:19)
[2024-09-13 10:54] VITALS: PULSE 60; RESP 18; O2SAT 93
[2024-09-13] MEDS: fentaNYL CITRATE 100 MCG/2 ML VL ONE (11:16)
[2024-09-13] MEDS: MIDAZOLAM HCL 5 MG/ML-1ML VIAL ONE (11:16)
[2024-09-13 11:37] VITALS: TEMP 98.5; O2SAT 96
--- NOTE | 2024-09-13 11:37 | DVHOP2 ---
Operative Report DATE OF OPERATION: 09/13/24 PROCEDURE: Colonoscopy with cold biopsy. PREOPERATIVE INDICATION: The patient is a 73 -year-old female undergoing colonoscopy for surveillance with personal history of colon polyps POSTOPERATIVE DIAGNOSES: 1. There was a 2 mm benign-appearing distal transverse colon polyp that was seen and removed completely via cold biopsy forceps 2. There was a 2 mm benign-appearing descending colon polyp that was seen and removed completely via cold biopsy forceps 3. There was mild sigmoid diverticular disease 4. Trace internal hemorrhoids otherwise normal examination up to the cecum and terminal ileum PROCEDURE PERFORMED BY: Sofia Matthews M.D. SCOPE: Olympus videocolonoscope. ASA CLASS: 2. PREOPERATIVE MEDICATIONS: Versed 3 mg, Fentanyl 75 mcg, Benadryl 0 mg PROCEDURE IN DETAIL: After obtaining an informed consent, the patient was placed on left lateral decubitus position. She was then sedated with the above medications. A rectal examination was performed that was normal. The colonoscope was then passed through the anus into the rectosigmoid and through the descending, transverse, and ascending colon up to the cecum with visualization of the appendiceal orifice, base of the cecum and the ileocecal valve. The colonoscope was then withdrawn. The distal 5-10 cm of the terminal ileum were normal. There were no masses or colitis. Patient had mild scattered diverticular d isease most prominent in the sigmoid. There was a 2 mm benign-appearing distal transverse colon polyp that was seen and removed by cold biopsy forceps There was another 2 mm benign-appearing descending colon polyp that was seen and removed by cold biopsy forceps On retroflexion she had trace to 1+ internal hemorrhoids The patient tolerated the procedure well without difficulty. WITHDRAWAL TIME: 7 minutes QUALITY OF THE PREP: [place] Bowel Prep score: 9. COMPLICATIONS : None SPECIMENS: Transverse colon polyp Descending colon polyp DISPOSITION: Stable D/C to home PLAN: 1. Repeat colonoscopy base on biopsy result likely in 3-5 years 2. Resume GI soft diet advance as tolerated 3. Increase fluid and fiber intake 4. Outpatient follow up with me in 4-6 weeks to review results and discuss further management SOFIA MATTHEWS MD Sep 13, 2024 11:37
[2024-09-13 12:07] VITALS: BP 118/63; PULSE 72; RESP 20; O2SAT 94
== END 2024-09-13 12:16 | disposition home or self-care (01) ==
LOC: GI 08:20
PROVIDERS: ATTEND Internal Medicine Gastroenterology
DX: Z12.11 Encounter for screening for malignant neoplasm of colon (principal); D12.4 Benign neoplasm of descending colon; D12.3 Benign neoplasm of transverse colon; K57.30 Diverticulosis of large intestine without perforation or abscess without bleeding; K64.8 Other hemorrhoids; F41.9 Anxiety disorder, unspecified; I10 Essential (primary) hypertension; E78.00 Pure hypercholesterolemia, unspecified; I48.91 Unspecified atrial fibrillation; Z98.51 Tubal ligation status; Z87.891 Personal history of nicotine dependence; Z98.890 Other specified postprocedural states; Z80.0 Family history of malignant neoplasm of digestive organs; Z82.49 Family history of ischemic heart disease and other diseases of the circulatory system; Z79.82 Long term (current) use of aspirin; Z88.1 Allergy status to other antibiotic agents; Z88.0 Allergy status to penicillin; Z91.048 Other nonmedicinal substance allergy status; Z98.41 Cataract extraction status, right eye; Z98.42 Cataract extraction status, left eye; Z88.5 Allergy status to narcotic agent
CPT/HCPCS: 36415; 45380; 80053; 85025; 85610; 85730; 88305; J1200; J2250; J3010; J7030; 99152

== ENCOUNTER 2024-10-01 07:44 | Inpatient (IN) | payer OTHER ==
[~2024-10-01] VITALS: Ht 160 cm; Wt 67.4 kg
[~2024-10-01 07:44] MED LIST changes: +AMIO200T33 PO; +BUSP10TA31 PO; +GABA-1251 PO; +PANT40T PO; +SUCR1TAB PO
[2024-10-01 08:00] VITALS: PULSE 61; RESP 18; O2SAT 98
--- NOTE | 2024-10-01 08:08 | ED.PDOC ---
SOB-HPI HPI Comments 73Y F with PMHx HTN and pacemaker presents to ED for chief complaint SOB x3days. Additional symptoms include fatigue, cough, joint pain, and swollen eyes. SOB worsens with exertion. Pt had cardiac ablation procedure performed [address] Wheeler. O2 sat 66% on arrival to ED. 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 History Family History Family History: Unobtainable Social History Smoker: Non-Smoker Alcohol: Occasionally Drugs: Denies Drug Use Lives In: Home Constitutional: reports: fatigue; denies: chills, diaphoresis, fever, malaise, sweats, weakness, others EENTM: denies: blurred vision, double vision, ear bleeding, ear discharge, ear drainage, ear pain, ear ringing, eye pain, eye redness, hearing loss, mouth pa in, mouth swelling, nasal discharge, nose bleeding, nose congestion, nose pain, photophobia, tearing, throat pain, throat swelling, voice changes, others Respiratory: reports: cough, SOB at rest, shortness of breath, SOB with excertion; denies: hemoptysis, orthopnea, stridor, wheezing, others Cardiovascular: denies: chest pain, dizzy spells, diaphoresis, Dyspnea on exertion, edema, irregular heart beat, left arm pain, lightheadedness, palpitations, PND, syncope, others Gastrointestinal: denies: abdomen distended, abdominal pain, blood streaked bowels, constipated, diarrhea, dysphagia, difficulty swallowing, hematemesis, melena, nausea, poor appetite, poor fluid intake, rectal bleeding, rectal pain, vomiting, others Genitourinary: denies: abnormal vagina bleeding, burning, dyspareunia, dysuria, flank pain, frequency, hematuria, incontinence, pain, , vagina discharge, urgency, others Neurological: denies: dizziness, fainting, headache, left sided numbness, left sided weakness, numbness, paresthesia, pre-existing deficit, right sided numbness, right sided weakness, seizure, speech problems, tingling, tremors, weakness, others Musculoskeletal: reports: joint pain; denies: back pain, gout, joint swelling, muscle pain, muscle stiffness, neck pain, others Integumetry: denies: bruises, change in color, change in hair/nails, dryness, laceration, lesions, lumps, rash, wounds, others Allergic/Immunocompromised: denies: Difficulty Healing, Frequent Infections, Hives, Itching, others Hematologic/Lymphatic: denies: anemia, blood clots, easy bleeding, easy bruising, swollen glands, others Endocrine: denies: excessive hunger, excessive sweating, excessive thirst, excessive urination, flushing, intolerance to cold, intolerance to heat, unexplained weight gain, unexplained weight loss, others Psychiatric: denies: anxiety, bipolar disorder, depression, hopeless, panic disorder, schizophrenia, sleepless, suicidal, others All Other Systems: Reviewed and Negative Physical Exam General Appearance: No Apparent Distress, Normal HEENT: Normal ENT Inspection, Pharynx Normal, TMs Normal Neck: Full Range of Motion, Non-Tender, Normal, Normal Inspection Respiratory: Accessory Muscle Use, Chest Non-Tender, Respiratory Distress, Other Cardiovascular: No Edema, No JVD, No Murmur, No Gallop, Normal Peripheral Pulses, Other (Paced rhythm) Breast Exam: Deferred Gastrointestinal: No Organomegaly, Non Tender, No Pulsatile Mass, Normal Bowel Sounds, Soft Genitalia: Deferred Pelvic: Deferred Rectal: Deferred Extremities: No calf tenderness, Normal capillary refill, Normal inspection, Normal range of motion, Non-tender, No pedal edema Musculoskeletal : Apperance: Normal Neurologic: Alert, tank car cleaner II-XII nml as Tested, No Motor Deficits, Normal Affect, Normal Mood, No Sensory Deficits Cerebellar Function: NOT DONE Reflexes: NOT DONE Skin: Dry, Normal Color, Warm Peripheral Pulses: 3+ Radial (R), 3+ Radial (L) Lymphatic: No Adenopathy Was a procedure done? Was a procedure done?: No Differential Dx Differential Diagnosis: Anxiety, Asthma, Bronchitis, CHF, COPD, Pneumonia, URI X-Ray, Labs, Meds, VS Vital Signs Date Time Temp Pulse Resp B/P (MAP) Pulse Ox O2 Delivery O2 Flow Rate FiO2 10/01/24 10:00 64 24 114/53 (73) 97 10/01/24 09:36 63 10/01/24 09:24 18 98 Non-Rebreather 15 N/A 10/01/24 08:08 60 10/01/24 08:00 98.8 61 18 131/55 (80) 98 98.8 10/01/24 08:00 61 18 98 Non-Rebreather 15 N/A 10/01/24 07:56 60 10/01/24 07:47 98.2 64 24 110/44 (66) 70 Lab Test 10/01/24 10:57 10/01/24 08:13 Range/Units Urine Color Colorless Yellow Urine Clarity Clear Clear Urine pH 5.0 5.0-9.0 Urine Specific [place] 1.005 1.001-1.035 Urine Protein Negative Negative Urine Ketones Negative Negative Urine Blood Trace H Negative /uL Urine Nitrite Negative Negative Urine Bilirubin Negative Negative Urine Urobilinogen Normal Negative mg/dL Urine Leukocyte Esterase Negative Negative /uL Urine RBC None seen 0 - 4 /hpf Urine WBC <1 0 - 5 /hpf Urine Squamous Epithelial Cells None seen <5 /hpf Urine Bacteria None seen None Seen /hpf Urine Glucose Normal Normal mg/dL White Blood Count 12.4 H 4.4-10.8 10^3/uL Red Blood Count 3.70 L 4.0-5.20 10^6/uL Hemoglobin 11.3 L 12.2-16.2 g/dL Hematocrit 33.7 L 36.0-46.0 % Mean Corpuscular Volume 91.1 80.0-100.0 fL Mean Corpuscular Hemoglobin 30.6 28.0-32.0 pg Mean Corpuscular Hemoglobin Concent 33.6 32.0-36.0 g/dL Red Cell Distribution Width 14.4 H 11.8-14.3 % Platelet Count 205 140-450 10^3/uL Mean Platelet Volume 8.6 6.9-10.8 fL Neutrophils (%) (Auto) 83.7 H 37.0-80.0 % Lymphocytes (%) (Auto) 6.5 L 10.0-50.0 % Monocytes (%) (Auto) 9.3 0.0-12.0 % Eosinophils (%) (Auto) 0.1 0.0-7.0 % Basophils (%) (Auto) 0.4 0.0-2.0 % Neutrophils # (Auto) 10.3 H 1.6-8.6 10 ^3/uL Lymphocytes # (Auto) 0.8 0.4-5.4 10 ^3/uL Monocytes # (Auto) 1.2 0-1.3 10 ^3/uL Eosinophils # (Auto) 0 0-0.8 10 ^3/uL Basophils # (Auto) 0.1 0-0.2 10 ^3/uL Nucleated Red Blood Cells 0.0 % Sodium Level 128 L 136-145 mmol/L Potassium Level 2.9 L 3.5-5.1 mmol/L Chloride Level 94 L 98-107 mmol/L Carbon Dioxide Level 23 20-31 mmol/L Anion Gap 11 5-15 Blood Urea Nitrogen 22 9-23 mg/dL Creatinine 1.05 H 0.550-1.02 mg/dL Glomerular Filtration Rate Calc 56 >90 mL/min BUN/Creatinine Ratio 21.0 H 10.0-20.0 Serum Glucose 135 H 74-106 mg/dL Calcium Level 9.2 8.7-10.4 mg/dL Phosphorus Level 3.7 2.4-5.1 mg/dL Magnesium Level 2.0 1.6-2.6 mg/dL Troponin I High Sensitivity 86 *H </=34 ng/L B-Type Natriuretic Peptide 356.49 0-100 pg/mL Thyroid Stimulating Hormone (TSH) 2.74 0.55-4.78 uIU/mL Current Medications Medications (Trade) Dose Ordered Sig/Chai Route Start Time Stop Time Status Last Admin Methylprednisolone Sodium Succinate (Solu Medrol) 125 mg ONCE ONCE IV 10/01/24 08:15 10/01/24 08:16 DC 10/01/24 08:46 Albuterol (Ventolin Medneb) 5 mg ONCE ONCE NEB 10/01/24 08:15 10/01/24 08:16 DC 10/01/24 08:15 Ipratropium [place] (Atrovent Medneb) 0.5 mg ONCE ONCE NEB 10/01/24 08:15 10/01/24 08:16 DC 10/01/24 08:15 Trimethoprim/ Sulfamethoxazole 15 ml/Dextrose 515 ml @ 171.667 mls/hr ONCE ONCE IV 10/01/24 09:30 10/01/24 12:29 DC 10/01/24 12:08 [place] [address] Ph: [phone] DIAGNOSTIC IMAGING Diagnostic Imaging Report : [id number] Signed PATIENT: RONNI CAM ACCT: [id number] UNIT: [id number] : 1950 LOC: ER ROOM / BED: / AGE / SEX: 73 / F ADM STATUS: REG ER SERVICE 1 ORDERING PHYSICIAN: JAVIER WATKINS MD PROCEDURE(s): CXRP - CHEST PORTABLE REASON: sob ORDER NUMBER(s): [id number], ACCESSION NUMBER(s): [id number] CHEST RADIOGRAPH Indication: sob Technique: Single frontal view of the chest was obtained COMPARISON: Left chest wall pacemaker FINDINGS: Lines and Tubes: Left chest wall pacemaker Lungs: Multifocal airspace disease. Pleura: No effusion. No pneumothorax. Cardiomediastinal contours: Cardiomegaly Bones: Unremarkable IMPRESSION: Pulmonary vascular congestion and/or atypical pneumonia. ATED BY: YOGI MCGREGOR MD DICTATED DATE/TIME: 10/01/24830 SIGNED BY: YOGI MCGREGOR MD SIGNED DATE/TIME: 10/01/24830 CC: Patient alert. Complaining of shortness a breath. Using accessory muscles. Placed on oxygen. Chest x-ray reviewed does show pneumonia. Was given Bactrim. Was given steroid. Was given breathing treatment. Was given Lasix. Pacemaker in place. EKG does show paced rhythm. Reviewed her previous visit. Explained to the patient. Continue cardiac monitoring. Time of 1ST Reevaluation: 08:21 Reevaluation 1ST: Unchanged Patient Education/Counseling: Diagnosis, Treatment Family Education/Counseling: Diagnosis, Treatment Additional Information I reviewed the following notes from patient's past medical encounters: COUNTS INCLUDE 234 BEDS AT THE [facility] discharge 08/29/2019 and 08/20/2017 The following tests were ordered, and results were reviewed by me: CBC, BNP, BMP, Troponin, UA, CXR Additional Information was gathered from interviewing the following independent historians: Son. I reviewed and agreed with the following test results read by other providers: CXR I discussed treatment and results with medical personnel and hospitalist. Departure 1 Departure Time of Disposition: 09:19 Impression: Primary Impression: Acute respiratory failure Qualified Codes: J96.01 - Acute respiratory failure with hypoxia Additional Impression: Pneumonia Qualified Codes: J18.9 - Pneumonia, unspecified organism Disposition: ADMITTED INPATIENT Admit to: Med Surg Condition: Guarded Critical Care Note Critical Care Time?: Yes (90 min-critical care time only) Stability Stability form required: No Heart Score Heart Score: Heart Score Response (Comments) Value History Slightly Suspicious 0 EKG Normal 0 Age >65 2 Risk Factors >3 or Hx ASHD 2 Troponin Normal limit 0 Total 4 I personally scribed for JAVIER WATKINS MD ([email or web address]) on 10/01/24 at 08:08. Electronically submitted by Mojgan Cano ([email or web address]). I personally scribed for JAVIER WATKINS MD ([email or web address]) on 10/01/24 at 08:20. Electronically submitted by Mojgan Cano ([email or web address]). I personally scribed for JAVIER WATKINS MD ([email or web address]) on 10/01/24 at 08:37. Electronically submitted by Mojgan Cano ([email or web address]). JAVIER WATKINS MD Oct 01, 2024 08:08
[2024-10-01] MEDS: ALBUTEROL SULF 2.5 MG/0.5ML(0.5%) NEB SOLN NEB ONE (08:15)
[2024-10-01] MEDS ORDERED: levoFLOXacin 500MG 100 ML IV ONE (08:15)
[2024-10-01] MEDS: IPRATROPIUM BROM 0.5 MG/2.5ML INH SOL NEB ONE (08:15)
[2024-10-01 08:29] LABS: Basophils # (auto) 0.1 10 ^3/uL (0-0.2); Basophils % (auto) 0.4 % (0.0-2.0); Eosinophils # (auto) 0 10 ^3/uL (0-0.8); Eosinophils % (auto) 0.1 % (0.0-7.0); Hematocrit 33.7 % (36.0-46.0); Hemoglobin 11.3 g/dL (12.2-16.2); Lymphocytes # (auto) 0.8 10 ^3/uL (0.4-5.4); Lymphocytes % (auto) 6.5 % (10.0-50.0); Mean Corpuscular Hemoglobin 30.6 pg (28.0-32.0); Mean Corpuscular Hgb Conc. 33.6 g/dL (32.0-36.0); Mean Corpuscular Volume 91.1 fL (80.0-100.0); Monocytes # (auto) 1.2 10 ^3/uL (0-1.3); Monocytes % (auto) 9.3 % (0.0-12.0); Neutrophils # (auto) 10.3 10 ^3/uL (1.6-8.6); Neutrophils % (auto) 83.7 % (37.0-80.0); Platelet Count (auto) 205 10^3/uL (140-450); Red Cell Distribution Width 14.4 % (11.8-14.3); White Blood Cell 12.4 10^3/uL (4.4-10.8)
[2024-10-01 08:33] LABS: Anion Gap 11 (5-15); Calcium 9.2 mg/dL (8.7-10.4); Carbon Dioxide 23 mmol/L (20-31)
--- NOTE | 2024-10-01 08:33 | DVH ---
CHEST RADIOGRAPH Indication: sob Technique: Single frontal view of the chest was obtained COMPARISON: Left chest wall pacemaker FINDINGS: Lines and Tubes: Left chest wall pacemaker Lungs: Multifocal airspace disease. Pleura: No effusion. No pneumothorax. Cardiomediastinal contours: Cardiomegaly Bones: Unremarkable IMPRESSION: Pulmonary vascular congestion and/or atypical pneumonia.
[2024-10-01 08:38] LABS: Blood Urea Nitrogen 22 mg/dL (9-23)
[2024-10-01 08:46] LABS: Chloride 94 mmol/L (98-107); Glucose 135 mg/dL (74-106); Potassium 2.9 mmol/L (3.5-5.1); Sodium 128 mmol/L (136-145)
[2024-10-01] MEDS: methylPREDNISolone SOD SUCC 125 MG/2 ML VL IV ONE (08:46)
--- NOTE | 2024-10-01 08:55 | ECG ---
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
--- NOTE | 2024-10-01 09:37 | ECG ---
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
[2024-10-01 11:37] LABS: Urine Bacteria None Seen /hpf (None Seen)
[2024-10-01] MEDS ORDERED: NITROGLYCERIN 0.4 MG SL TAB SL PRN (11:45)
[2024-10-01] MEDS ORDERED: IPRATROPIUM BROM 0.5 MG/2.5ML INH SOL NEB PRN (11:45)
[2024-10-01] MEDS ORDERED: ALBUTEROL SULF 2.5 MG/0.5ML(0.5%) NEB SOLN NEB PRN (11:45)
--- NOTE | 2024-10-01 11:47 | DVHHP2 ---
History of Present Illness Reason for Visit: Shortness of the breath fatigue for three days History of Present Illness 73-year-old female past medical history hypertension pacemaker anxiety hyperlipidemia AFib where she had a ablation procedure at [facility] two weeks ago she was consulted by Dr. Wheeler, BTL chief complaint patient states she has been feeling short of breath fatigue and joint pain she has been feeling like this for the last three days. She states she felt good before that. She currently denies any chest pain no cough no calf pain or leg swelling. Patient states she was been so weak that she has been has a hard time getting out of bed. Patient does admit to have a cardiac ablation two weeks ago at [facility] she was under the care of aquatic performer Dr. Magdaleno hassan. When evaluating patient's labs and imaging looks like Bactrim was given Levaquin albuterol Atrovent Solu-Medrol white count was found to be 12.4 hemoglobin 11.3 and 33.7 sodium was 129 potassium was 2.9 creatinine was 1.05 glucose was 135 BNP was elevated at 356 troponin x2 was positive chest x-ray shows vascular congestion and pneumonia. I reviewed echo on prior admission August 19, 2024 EF was 60%. Patient was provided Lasix in the ER. With these findings we will admit and ask for Cardiology evaluation also provide IV antibiotics for pneumonia Past Medical History See HPI above Past Surgical History See HPI above Family History Reviewed, non-contributory to the management of this case. Past Social History The patient lives at home, denies smoking, alcohol or illicit drugs abuse. Review of Systems Constitutional: No: Fever, Chills, Sweats, Weakness, Malaise, Other Eyes: No: Pain, Vision change, Conjunctivae inflammation, Eyelid inflammation, Other, Redness ENT: No: Ear pain, Ear discharge, Nose pain, Nose discharge, Nose congestion, Mouth pain, Mouth swelling, Throat pain, Throat swelling, Other Respiratory: Shortness of breath, SOB with excertion; No: Cough, Dry, Wheezing, Hemoptysis, Pleuritic Pain, Sputum, Wheezing, Other Cardiovascular: Chest Pain; No: Palpitations, Orthopnea, Paroxysmal Noc. Dyspn ea, Edema, Lt Headedness, Other Gastrointestinal: No: Nausea, Vomiting, Abdominal Pain, Diarrhea, Constipation, Melena, Hematochezia, Other Genitourinary: No Dysuria, No Frequency, No Incontinence, No Hematuria, No Retention, No Other Musculoskeletal: No: other, neck pain, shoulder pain, arm pain, back pain, hand pain, leg pain, foot pain Skin: No: Rash, Lesions, Jaundice, Bruising, Other Neurological: No: Weakness, Numbness, Incoordination, Change in speech, Confusion, Seizures, Other Allergies: Coded Allergies: Diphenhydramine (Verified Allergy, Severe, 11/02/21) Clindamycin (Verified Allergy, Unknown, 11/02/21) Penicillins (Verified Allergy, Unknown, 11/02/21) Uncoded Allergies: TAPE (Allergy, Severe, 05/06/16) Medications Current Medications Medications Dose Ordered Sig/Chai Route Start Time Stop Time Status Last Admin Dose Admin Levofloxacin/ Dextrose 100 ml @ 100 mls/hr DAILY IV 10/02/24 10:00 UNV Methylprednisolone Sodium Succinate 40 mg Q8HR IV 10/01/24 14:00 UNV Albuterol 2.5 mg Q4HPRN PRN NEB 10/01/24 11:45 UNV Ipratropium [place] 0.5 mg Q4HPRN PRN NEB 10/01/24 11:45 UNV Furosemide 40 mg BIDD IV 10/01/24 18:00 UNV Amlodipine Besylate 10 mg DAILY PO 10/02/24 10:00 UNV Apixaban 5 mg BID PO 10/01/24 22:00 UNV Aspirin 81 mg DAILY PO 10/02/24 10:00 UNV Clonidine HCl 0.1 mg DAILY PO 10/02/24 10:00 UNV Flecainide Acetate 50 mg BID PO 10/01/24 22:00 UNV Latanoprost 1 drop QPM EACHEYE 10/01/24 18:00 UNV Exam Vital Signs Vital Signs Date Time Temp Pulse Resp B/P (MAP) Pulse Ox O2 Delivery O2 Flow Rate FiO2 10/01/24 10:00 64 24 114/53 (73) 97 10/01/24 09:24 Non-Rebreather 15 N/A 10/01/24 08:00 98.8 98.8 General Appearance: Alert, Oriented X3, Cooperative, mild distress HEENT: Atraumatic, PERRLA, EOMI, Mucous membr. moist/pink Respiratory: Other (Diminished lung sounds throughout) Cardiovascular: Regular rate, Normal S1, Normal S2, No murmurs Abdominal: Normal bowel sounds, Soft, No tenderness, No hepatospenomegaly, No masses Extremities: No clubbing, No cyanosis, No edema, Normal pulses, No tenderness/swelling Skin: No rashes, No breakdown, No significant lesion Neuro: Normal gait, Normal speech, Strength at 5/5 X4 ext, Normal tone, Sensation intact, Cranial nerves 3-12 NL Psych/Mental Status: Mental status NL, Mood NL Labs/Xrays Chest x-ray shows congestion and pneumonia I reviewed labs, imaging CT scan abdomen pelvis, EKG and all diagnostic studies on this patient from ED records and the medical chart Labs Test 10/01/24 10:57 10/01/24 08:13 Range/Units White Blood Count 12.4 H 4.4-10.8 10^3/uL Red Blood Count 3.70 L 4.0-5.20 10^6/uL Hemoglobin 11.3 L 12.2-16.2 g/dL Hematocrit 33.7 L 36.0-46.0 % Mean Corpuscular Volume 91.1 80.0-100.0 fL Mean Corpuscular Hemoglobin 30.6 28.0-32.0 pg Mean Corpuscular Hemoglobin Concent 33.6 32.0-36.0 g/dL Red Cell Distribution Width 14.4 H 11.8-14.3 % Platelet Count 205 140-450 10^3/uL Mean Platelet Volume 8.6 6.9-10.8 fL Neutrophils (%) (Auto) 83.7 H 37.0-80.0 % Lymphocytes (%) (Auto) 6.5 L 10.0-50.0 % Monocytes (%) (Auto) 9.3 0.0-12.0 % Eosinophils (%) (Auto) 0.1 0.0-7.0 % Basophils (%) (Auto) 0.4 0.0-2.0 % Neutrophils # (Auto) 10.3 H 1.6-8.6 10 ^3/uL Lymphocytes # (Auto) 0.8 0.4-5.4 10 ^3/uL Monocytes # (Auto) 1.2 0-1.3 10 ^3/uL Eosinophils # (Auto) 0 0-0.8 10 ^3/uL Basophils # (Auto) 0.1 0-0.2 10 ^3/uL Nucleated Red Blood Cells 0.0 % Sodium Level 128 L 136-145 mmol/L Potassium Level 2.9 L 3.5-5.1 mmol/L Chloride Level 94 L 98-107 mmol/L Carbon Dioxide Level 23 20-31 mmol/L Anion Gap 11 5-15 Blood Urea Nitrogen 22 9-23 mg/dL Creatinine 1.05 H 0.550-1.02 mg/dL Glomerular Filtration Rate Calc 56 >90 mL/min BUN/Creatinine Ratio 21.0 H 10.0-20.0 Serum Glucose 135 H 74-106 mg/dL Calcium Level 9.2 8.7-10.4 mg/dL Troponin I High Sensitivity 86 *H </=34 ng/L B-Type Natriuretic Peptide 356.49 0-100 pg/mL Assessment/Plan Assessment/Plan acute hypoxic resp failure pneumonia versus heart failure Found on chest x-ray Order Levaquin Order Lasix for now Order home dose Eliquis aspirin atorvastatin Strict I&Os Order echo follow up results ordered cards consult ordered abg fu results acute new onset congested heart failure NYHA score 4 found cxr Patient had echo performed 08/19/24 ef 60% ordered Lasix,asa. atorvastatin strict i/o's bnp elevated consider bipap if worsening resp distress consider card request restrict sodium daily wt chronic afib without rvr pt had ablation procedure 2wks ago ordered cards consult Dr. Wheeler fu results cont home eliquis acute community acquired pneumonia found on cxr ordered ceftriaxone and azithromax ordered albuterol/atrovent prn sob ordered solumedrol for now acute hypokalemia ordered replete k ordered mag and phos fu results acute elevation in trop likely demand ischemia from heart failure ekg no st changes trend trop cards consult fu recs acute hyponatremia like from dilution from heart failure ordered urine sodium, serum osm, urine osm fu results cont dieresis chronic problems htn depression anxieyt hld pacemaker seen cards at [facility] fen/ppx protonix while on steriods eliquis diet hl plan admit to tele cards consult Plan discussed with: Patient My Orders Orders - BLANCA LAUREN DNP Procedure Category Date Status Time Levofloxacin Levaquin PHA 10/02/24 Transmitted 10:00 Methylprednisolone PHA 10/01/24 Transmitted Sod Succ (Solu Medrol 14:00 Albuterol Medneb PHA 10/01/24 Transmitted (Ventolin Medneb) 11:45 Ipratropium Medneb PHA 10/01/24 Transmitted (Atrovent Medneb) 11:45 Cont Med Neb Intial Tx RT 10/01/24 Transmitted 11:34 * Cardiology Consult CONS 10/01/24 Transmitted 11:34 Furosemide Injection PHA 10/01/24 Transmitted (Lasix Injection) 18:00 Potassium Er Tablet PHA 10/01/24 Transmitted (Klor-Con Tablet) 11:45 Magnesium LAB 10/01/24 Transmitted 11:34 Phosphorus LAB 10/01/24 Transmitted 11:34 Amlodipine Tablet PHA 10/02/24 Transmitted (Norvasc Tablet) 10:00 Apixaban (Eliquis) PHA 10/01/24 Transmitted 22:00 Aspirin Enteric PHA 10/02/24 Transmitted Coated Tablet 10:00 Clonidine Hcl Tablet PHA 10/02/24 Transmitted (Catapres Tablet) 10:00 Flecainide Tablet PHA 10/01/24 Transmitted (Tambocor Tablet) 22:00 Latanoprost (Xalatan) PHA 10/01/24 Transmitted 18:00 Timolol 0.5% Opth PHA 10/01/24 Transmitted Soln (Timoptic 0.5%) 22:00 Trazodone Hcl PHA 10/02/24 Transmitted (Desyrel) 10:00 (Nf) Buspirone Hcl PHA 10/01/24 Transmitted 14:00 (NF) PHA 10/02/24 Transmitted Enzthloraae-Qvavkiutloe-Bvx 10:00 (Nf) Rosuvastatin PHA 10/02/24 Transmitted Calcium (Crestor) 10:00 Admit ADMIT 10/01/24 Transmitted 11:34 Advance Directive ANGELA 10/01/24 In Process 11:34 Vital Signs ANGELA 10/01/24 In Process 11:34 Obtain Daily Weight ANGELA 10/01/24 In Process 11:34 Echo 2d Mode Cardiac US 10/01/24 Transmitted DOP 11:34 Copy Of Previous Echo ANGELA 10/01/24 In Process Report T 11:34 Oxygen By Nasal RT 10/01/24 Transmitted Cannula 11:34 Early Ambulation ANGELA 10/01/24 In Process 11:34 Sequential ANGELA 10/01/24 In Process Compression Device 11:34 Cardiac DIET 10/01/24 Transmitted Diet-2gna,Lofat,Lochol Lunch Cardiac [facility] 10/01/24 In Process Rehabilitation - Outpa Subjective Activity [facility] 10/01/24 In Process Tolerance 11:34 Strict I & O ANGELA 10/01/24 In Process 11:34 Teach: Heart Failure [facility] 10/01/24 In Process 11:34 Thyroid Stimulating LAB 10/01/24 Transmitted Hormone 11:34 Cardiac ORDERS 10/01/24 Transmitted Rehabilitation: 11:34 Nitroglycerin PHA 10/01/24 Transmitted Sublingual (Ntrostat 11:45 Stat Ekg For Chest [facility] 10/01/24 Transmitted Pain 11:34 Notify Md Of Changes [facility] 10/01/24 Transmitted From Base 11:34 Hedis Specialist For [facility] 10/01/24 Transmitted 24 Hours 11:34 Emergency Dysrhythmia [facility] 10/01/24 Transmitted Protocol 11:34 Rhythm Strips Once [facility] 10/01/24 Transmitted Every Shift 11:34 Oxygen By Nasal RT 10/01/24 Transmitted Cannula 11:34 Date of Service: Oct 01, 2024 Billing Provider: BLANCA LAUREN DNP Common Visit Codes: [id number] INP/OBS CARE (HIGH), [id number] CARE 30- 74 MIN (Total critical care time: Approximately 45 minutes This critical care time included obtaining a history; examining the patient; pulse oximetry; ordering and review of studies; arranging urgent treatment with development of a management plan; evaluation of patient's response to treatment; frequent reassessment; and, discussions with other providers.) BALNCA LAUREN DNP Oct 01, 2024 11:47
[2024-10-01 11:55] VITALS: BP 114/53; PULSE 64; RESP 24; TEMP 98.8; O2SAT 92
[2024-10-01] MEDS: SULFAMETH-TRIMETH 80/16MG-ML 15 ML in D5W 5% 500 ML IV ONE (12:08)
[2024-10-01 12:14] LABS: Urine Blood TRACE /uL (Negative); Urine Clarity Clear (Clear); Urine Color Colorless (Yellow); Urine Protein, UAD Negative (Negative); Urine Specific Gravity 1.005 (1.001-1.035); Urine Urobilinogen Normal (Negative); Urine WBC <1 /hpf (0 - 5)
[2024-10-01 12:16] LABS: Phosphorus 3.7 mg/dL (2.4-5.1)
[2024-10-01] MEDS: POTASSIUM CHL 20 Meq TABLET PO ONE (12:31)
[2024-10-01] MEDS: FUROSEMIDE 40 MG/4 ML VIAL IV ONE (12:49)
--- NOTE | 2024-10-01 12:52 | DVHINCON2 ---
Date Seen: Oct 01, 2024 Referring Physician BRII Haile Reason for Consultation Acute CHF History of Present Illness This is a pleasant 73-year-old female who presented to the emergency room with a chief complaint of generalized weakness for three days. The patient complains of generalized weakness associated with increased fatigue, SOB, AYON, periorbital edema, myalgia, and joint pain. Denies chest pain, palpitations, diaphoresis, dizziness, or syncopal events. Upon arrival to the emergency room, she was found with an oxygen saturation level of 65% on room air. She underwent a 12 lead electrocardiogram revealing an atrial ventricular paced rhythm with underlying sinus rhythm. Baseline troponin level was found at 86 ng/L. Reports undergoing a recent cardiac ablation at [facility] on 09/17/2024. Per EP, patient is to reduce amiodarone therapy to 200 mg QD and continuation of Eliquis 5mg BID. Next follow-up with EP is on 10/24/2024. She also follows up in the outpatient setting with Dr. Wheeler with scheduled appointment on 10/03/2024 at 0900. Significant medical history includes intermittent high-degree AV block status post dual-chamber pacemaker implantation (Biotronik) on 08/28/2019, longstanding persistent atrial fibrillation status post cardiac ablations in 2022 and 2023 with current amiodarone/Eliquis therapy, hypertension, diverticulosis, and hemorrhoids. Past Medical History Past medical history reviewed. No other significant than mentioned above. Past Surgical History Dual-chamber pacemaker implantation (Biotronik), 08/2019 Loop recorder, 2018 Rectal polyps removal, 2023 Rectal polyps removal, 2016 Right foot, 2012 Excision of lipoma in the right lumbar region, 2010 Family History: Cardiovascular disease FATHER Colon cancer BROTHER FH: heart attack MOTHER Family History Family history reviewed. Social History Denies the use of illicit drugs or tobacco use. Admits to occasional alcohol use. Allergies: Coded Allergies: Diphenhydramine (Verified Allergy, Severe, 11/02/21) Clindamycin (Verified Allergy, Unknown, 11/02/21) Penicillins (Verified Allergy, Unknown, 11/02/21) Uncoded Allergies: TAPE (Allergy, Severe, 05/06/16) Home Meds Reported Medications Elepwwmfssc-Qhvftesudse-Orr C- (Glucosamine Chondroitin) 1 Cap Cap, 1 CAP PO DAILY, CAP 09/10/24 Magnesium Chloride (Slow-Mag) Tab, 1 OR DAILY, TAB 09/10/24 Apixaban Base (ELIQUIS) 5 Mg Tab, 5 MG PO BID, TAB 09/10/24 Trazodone HCl (Trazodone Hydrochloride) 50 Mg Tab, 50 MG PO DAILY, TAB 09/10/24 Flecainide Acetate (TAMBOCOR TABLET) 50 Mg Tb, 50 MG PO BID, TAB 09/10/24 Furosemide (Furosemide) 40 Mg Tab, 40 MG PO DAILY for 30 Days 07/01/19 Rosuvastatin Calcium (Crestor) 40 Mg Tab, 40 MG PO DAILY, TAB 07/01/19 Aspirin (Aspir-Low) 81 Mg Tab, 81 MG PO DAILY for 30 Days, MG 04/13/18 Potassium Chloride (Klor-Con 8) 8 Meq Tab, 8 MEQ PO DAILY, TAB 04/13/18 Buspirone Hcl (Buspirone Hcl) 5 Mg Tab, 5 MG PO TID for 30 Days, MG 04/13/18 Clonidine Hcl (CATAPRES TABLET) 0.1 Mg Tb, 0.1 MG PO DAILY 04/13/18 Timolol Maleate (Ophth) (TIMOPTIC) 0.5 % Jessica, 1 DROP EACHEYE BID, #10 ML 3 Refills 02/10/17 Latanoprost (LATANOPROST) 0.005 % Jessica, 1 DROP EACHEYE QPM, #7.5 ML 3 Refills 10/11/16 Amlodipine Besylate (Amlodipine Besylate) 5 Mg Tab, 10 MG PO DAILY for 30 Days, MG 10/11/16 Home Meds Home medications reviewed. Current Medications Current Medications Medications (Trade) Dose Ordered Sig/Chai Route PRN Reason Start Time Stop Time Status Last Admin Levofloxacin/ Dextrose 100 ml @ 100 mls/hr DAILY IV 10/02/24 10:00 10/01/24 12:10 DC Methylprednisolone Sodium Succinate (Solu Medrol) 40 mg Q8HR IV 10/01/24 14:00 Albuterol (Ventolin Medneb) 2.5 mg Q4HPRN PRN NEB SHORTNESS OF BREATH 10/01/24 11:45 Ipratropium [place] (Atrovent Medneb) 0.5 mg Q4HPRN PRN NEB SHORTNESS OF BREATH 12/24/24 11:45 Furosemide (Lasix Injection) 40 mg BIDD IV 10/01/24 18:00 Amlodipine Besylate (Norvasc Tablet) 10 mg DAILY PO 10/02/24 10:00 Apixaban (Eliquis) 5 mg BID PO 10/01/24 22:00 Aspirin (Ecotrin Enteric Coated Tablet) 81 mg DAILY PO 10/02/24 10:00 Clonidine HCl (Catapres Tablet) 0.1 mg DAILY PO 10/02/24 10:00 Flecainide Acetate (Tambocor Tablet) 50 mg BID PO 10/01/24 22:00 UNV Latanoprost (Xalatan) 1 drop QPM EACHEYE 10/01/24 18:00 Timolol Maleate (Timoptic 0.5%) 1 drop BID EACHEYE 10/01/24 22:00 Trazodone HCl (Desyrel) 50 mg DAILY PO 10/02/24 10:00 Patient Own Medication 5 mg TID PO 10/01/24 14:00 UNV Patient Own Medication 1 cap DAILY PO 10/02/24 10:00 UNV Patient Own Medication 40 mg DAILY PO 10/02/24 10:00 UNV Nitroglycerin (Ntrostat Sublingual) 0.4 mg Q5MINP PRN SL FOR CHEST PAIN 10/01/24 11:45 Atorvastatin Calcium (Lipitor) 40 mg HS PO 10/01/24 22:00 UNV Review of Systems Constitutional: Generalized weakness, fatigue, myalgia, joint pain Ears, Nose, & Throat: No symptom reported Eyes: Periorbital edema Neurological: No symptoms reported Pulmonary/Respiratory: SOB, AYON Cardiovascular: No symptom reported Gastrointestinal: No symptom reported Genitourinary: No symptom reported Musculoskeletal: No symptom reported Skin: No symptom reported Psychiatric: No symptom reported Endocrine: No symptom reported Hemotologic/Lymphatic: No symptom reported Vital Signs Vital Signs Date Time Temp Pulse Resp B/P (MAP) Pulse Ox O2 Delivery O2 Flow Rate FiO2 10/01/24 11:55 98.8 64 24 114/53 92 8.0 64 98.8 10/01/24 09:24 Non-Rebreather Physical Exam General Appearance: Cooperative. Well developed. Well nourished. In no acute distress Head Exam: Normal inspection Neck Exam: Normal inspection. Non-tender. Normal alignment Pulmonary/Respiratory: Chest non-tender. Diminished to bilateral breath sounds. O2 via NC Cardiovascular/Chest: Regular rate and rhythm. S1, S2. AV paced rhythm with underlying sinus rhythm. No murmurs. No JVD. Peripheral Pulses: 2+ Radial (R). 2+ Radial (L). 2+ Pedal (R). 2+ Pedal (L) Abdominal Exam: Normal bowel sounds. Soft. Nontender. No hepatospenomegaly. No masses Ankle Exam: Positive ankle pitting edema, 3+ Lower extremities: Positive lower extremity pitting edema, 3+ Neuro/Mental Status: A&O x4. Coherent Thoughts/Psych: Normal thought pattern. Appropriate mood and affect. Good judgement and insight Appearance: In no acute distress Skin Exam: Normal inspection. Normal color. Warm. Dry Labs/Diagnostic Data Labs Test 10/01/24 10:57 10/01/24 08:13 Range/Units Urine Color Colorless Yellow Urine Clarity Clear Clear Urine pH 5.0 5.0-9.0 Urine Specific Brooten 1.005 1.001-1.035 Urine Protein Negative Negative Urine Ketones Negative Negative Urine Blood Trace H Negative /uL Urine Nitrite Negative Negative Urine Bilirubin Negative Negative Urine Urobilinogen Normal Negative mg/dL Urine Leukocyte Esterase Negative Negative /uL Urine RBC None seen 0 - 4 /hpf Urine WBC <1 0 - 5 /hpf Urine Squamous Epithelial Cells None seen <5 /hpf Urine Bacteria None seen None Seen /hpf Urine Glucose Normal Normal mg/dL White Blood Count 12.4 H 4.4-10.8 10^3/uL Red Blood Count 3.70 L 4.0-5.20 10^6/uL Hemoglobin 11.3 L 12.2-16.2 g/dL Hematocrit 33.7 L 36.0-46.0 % Mean Corpuscular Volume 91.1 80.0-100.0 fL Mean Corpuscular Hemoglobin 30.6 28.0-32.0 pg Mean Corpuscular Hemoglobin Concent 33.6 32.0-36.0 g/dL Red Cell Distribution Width 14.4 H 11.8-14.3 % Platelet Count 205 140-450 10^3/uL Mean Platelet Volume 8.6 6.9-10.8 fL Neutrophils (%) (Auto) 83.7 H 37.0-80.0 % Lymphocytes (%) (Auto) 6.5 L 10.0-50.0 % Monocytes (%) (Auto) 9.3 0.0-12.0 % Eosinophils (%) (Auto) 0.1 0.0-7.0 % Basophils (%) (Auto) 0.4 0.0-2.0 % Neutrophils # (Auto) 10.3 H 1.6-8.6 10 ^3/uL Lymphocytes # (Auto) 0.8 0.4-5.4 10 ^3/uL Monocytes # (Auto) 1.2 0-1.3 10 ^3/uL Eosinophils # (Auto) 0 0-0.8 10 ^3/uL Basophils # (Auto) 0.1 0-0.2 10 ^3/uL Nucleated Red Blood Cells 0.0 % Sodium Level 128 L 136-145 mmol/L Potassium Level 2.9 L 3.5-5.1 mmol/L Chloride Level 94 L 98-107 mmol/L Carbon Dioxide Level 23 20-31 mmol/L Anion Gap 11 5-15 Blood Urea Nitrogen 22 9-23 mg/dL Creatinine 1.05 H 0.550-1.02 mg/dL Glomerular Filtration Rate Calc 56 >90 mL/min BUN/Creatinine Ratio 21.0 H 10.0-20.0 Serum Glucose 135 H 74-106 mg/dL Calcium Level 9.2 8.7-10.4 mg/dL Phosphorus Level 3.7 2.4-5.1 mg/dL Magnesium Level 2.0 1.6-2.6 mg/dL Troponin I High Sensitivity 86 *H </=34 ng/L B-Type Natriuretic Peptide 356.49 0-100 pg/mL Assessment Sepsis with PNA rule out influenza/COVID-19 Acute on chronic decompensated HFpEF with LVEF 60% Acute hypoxic respiratory failure Severe hypokalemia NSTEMI likely type 2 secondary to above Likely successful AF ablation on 09/17/2024, currently on amiodarone/Eliquis therapy High-degree AV block status post dual-chamber pacemaker implantation (Biotronik, 2019) Hypertension Plan/Recommendation We will continue the following plan/recommendations (Dr. Bailon): * Echocardiogram from 08/30/2024 revealed EF 60% with normal RV function * Left atrial enlargement with concentric LVH and mild aortic root enlargement * Cardiolite stress test from 11/02/2021 no stress-induced ischemia. LVEF 68%, normal LVEF * Continue amiodarone q.d. and Eliquis b.i.d. per EP instructions * Initiate metoprolol XL. D/c amlodipine/clonidine * Replete electrolytes, K>4 and Mg>2 * Obtain blood cultures and initiate broad-spectrum abx * Obtain influenza and COVID-19 samples * Monitor ECG changes and notify F/u with Dr. Wheeler on 10/03/24. F/u with EP at [facility] on 10/24/24. Thank you for allowing us to participate in this patient's care. Please call if you have any questions or concerns. This medical document was created using an electronic medical record system with voice recognition software and computerized dictation system. Although this document has been carefully reviewed, there might still be some phonetic and typographical errors. Occasional wrong-word or ``sound-alike substitutions may have occurred due to the inherent limitations of voice recognition software. These areas are purely typographical due to imperfections of the software programs and do not reflect any compromise in the patient's medical care. Please read the chart carefully and recognize, using context, where these substitutions have occurred. Plan discussed with: Patient, Spouse, Son, Other Date of Service: Oct 01, 2024 Billing Provider: NABEEL BAILON MD Cardiology Common Codes: [id number] INP/OBS CARE (High) [facility]OUS [facility] Oct 01, 2024 12:52
[2024-10-01] MEDS: cefTRIAXone 1GM/50ML D5W 50 ML IV ONE (13:26)
[2024-10-01] MEDS: methylPREDNISolone SOD SUCC 40 MG/ML VL IV SCH (13:33)
[2024-10-01] MEDS: busPIRone HCL 10 MG TAB PO SCH (13:41)
[2024-10-01] MEDS: POTASSIUM EFFERVESENT TAB 25 MEQ PO ONE (13:42)
[2024-10-01 16:51] LABS: Base Excess 5.7 mmol/L (-2.0-3.0)
[2024-10-01] MEDS: FUROSEMIDE 40 MG/4 ML VIAL IV SCH (18:06)
[2024-10-01] MEDS: LATANOPROST 0.005 % OPTH(EYE) SOL 2.5ML EACHEYE SCH (18:13)
[2024-10-01 18:32] VITALS: O2SAT 92
[2024-10-01 20:00] VITALS: PULSE 68; RESP 24; O2SAT 94
[2024-10-01] MEDS ORDERED: FLECAINIDE ACETATE 50 MG TAB PO SCH (22:00)
[2024-10-01] MEDS ORDERED: ATORVASTATIN 20 MG TAB PO SCH ×2 (22:00)
[2024-10-01] MEDS: TIMOLOL MAL 0.5% OPTH(EYE) SOL 5ML EACHEYE SCH (22:00)
[2024-10-01 22:37] VITALS: RESP 19; O2SAT 96
[2024-10-01 23:30] LABS: COVID19 ANTIGEN SOFIA FIA NEGATIVE (NEGATIVE); Rapid Influenza A Negative (Negative); Rapid Influenza B Negative (Negative)
[2024-10-02] VITALS (12 sets, daily range): BP systolic 95–134; BP diastolic 45–56; PULSE 62–66; RESP 17–20; TEMP 97.5–98.4; O2SAT 91–97
[2024-10-02] MEDS: APIXABAN 5 MG TAB PO SCH (00:07)
[2024-10-02] MEDS: ATORVASTATIN 20 MG TAB PO SCH (00:08)
[2024-10-02] MEDS ORDERED: cloNIDine HCL 0.1 MG TAB PO SCH (10:00)
[2024-10-02] MEDS ORDERED: levoFLOXacin 500MG 100 ML IV SCH (10:00)
[2024-10-02] MEDS ORDERED: amLODIPine BESYLATE 5 MG TAB PO SCH (10:00)
[2024-10-02] MEDS ORDERED: ASPirin-EC 81 mg tab PO SCH (10:00)
[2024-10-02] MEDS ORDERED: AZITHROMYCIN 500MG/ 250ML 250 ML IV ONE (11:30)
[2024-10-02] MEDS ORDERED: LACTATED RINGER'S 500 ML IV ONE (11:45)
[2024-10-02 12:05] LABS: Basophils # (auto) 0 10 ^3/uL (0-0.2); Eosinophils # (auto) 0 10 ^3/uL (0-0.8); Hematocrit 33.8 % (36.0-46.0); Hemoglobin 11.5 g/dL (12.2-16.2); Lymphocytes # (auto) 0.4 10 ^3/uL (0.4-5.4); Lymphocytes % (auto) 2.2 % (10.0-50.0); Mean Corpuscular Hemoglobin 30.6 pg (28.0-32.0); Mean Corpuscular Hgb Conc. 34.1 g/dL (32.0-36.0); Mean Corpuscular Volume 89.6 fL (80.0-100.0); Monocytes % (auto) 6.2 % (0.0-12.0); Neutrophils % (auto) 91.6 % (37.0-80.0); Nucleated Red Blood Cells % 0.1 %; Platelet Count (auto) 227 10^3/uL (140-450); Red Blood Cells 3.77 10^6/uL (4.0-5.20); White Blood Cell 16.4 10^3/uL (4.4-10.8)
--- NOTE | 2024-10-02 12:05 | DVHPN2 ---
Consult Progress Note Date Seen: Oct 02, 2024 Subjective Review of Systems: CVS:Normal, RESPIRATORY:Abnormal, NEURO:Normal Other Systems: Reports SOB is improving Objective vital signs Vital Sign Date Time Temp Pulse Resp B/P (MAP) Pulse Ox O2 Delivery O2 Flow Rate FiO2 10/02/24 10:44 93 Oxymizer 8 N/A 10/02/24 09:00 97.9 65 17 95/47 (63) 97.9 Total Intake and Output 10/01/24 10/01/24 10/02/24 15:00 23:00 07:00 Intake Total 550.000 ml 200 ml Balance 550.000 ml 200 ml medications Current Medications Medications Dose Ordered Sig/Chai Route Start Time Stop Time Status Last Admin Dose Admin Methylprednisolone Sodium Succinate 40 mg Q8HR IV 10/01/24 14:00 10/02/24 05:39 40 MG Albuterol 2.5 mg Q4HPRN PRN NEB 10/01/24 11:45 Ipratropium [place] 0.5 mg Q4HPRN PRN NEB 10/01/24 11:45 Apixaban 5 mg BID PO 10/01/24 22:00 10/02/24 00:07 5 MG Latanoprost 1 drop QPM EACHEYE 10/01/24 18:00 10/01/24 18:13 1 DROP Timolol Maleate 1 drop BID EACHEYE 10/01/24 22:00 Trazodone HCl 50 mg DAILY PO 10/02/24 10:00 Buspirone HCl 5 mg TID PO 10/01/24 14:00 10/02/24 05:26 5 MG Patient Own Medication 1 cap DAILY PO 10/02/24 10:00 Nitroglycerin 0.4 mg Q5MINP PRN SL 10/01/24 11:45 Amiodarone HCl 200 mg DAILY PO 10/02/24 10:00 Atorvastatin Calcium 40 mg HS PO 10/01/24 22:00 10/02/24 00:08 40 MG Ceftriaxone Sodium 50 ml @ 100 mls/hr DAILY@09 IV 10/02/24 09:00 Metoprolol Succinate 25 mg DAILY PO 10/02/24 10:00 Azithromycin 250 ml @ 125 mls/hr DAILY IV 10/03/24 10:00 UNV Potassium Bicarbonate 25 meq DAILY PO 10/03/24 10:00 Examination: LUNGS:Abnormal (Diminished, on Oxymizer at 9 L/min), CVS:Normal, NEURO:Normal laboratory and microbiology Test 10/02/24 11:45 Range/Units Serum Glucose Pending Problem List/Assessment/Plan Problem List/Assessment/Plan Sepsis with PNA Acute on chronic decompensated HFpEF with LVEF 60% Acute hypoxic respiratory failure secondary to above Severe hypokalemia NSTEMI likely type 2 secondary to above Likely successful AF ablation on 09/17/2024, currently on amiodarone/Eliquis therapy 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 Bailon) * Echocardiogram from 08/30/2024 revealed EF 60% with normal RV function * Left atrial enlargement with concentric LVH and mild aortic root enlargement * Cardiolite stress test from 11/02/2021 no stress-induced ischemia. LVEF 68%, normal LVEF * Continue amiodarone q.d. and Eliquis b.i.d. per EP instructions * Continue metoprolol XL with parameters * Preload and afterload reduction * Replete electrolytes, K>4 and Mg>2 * ABX therapy per primary care team * Monitor ECG changes and notify F/u with Dr. Wheeler on 10/03/24. F/u with EP at [facility] on 10/24/24. Thank you for allowing us to participate in this patient's care. Please call if you have any questions or concerns. This medical document was created using an electronic medical record system with voice recognition software and computerized dictation system. Although this document has been carefully reviewed, there might still be some phonetic and typographical errors. Occasional wrong-word or ``sound-alike substitutions may have occurred due to the inherent limitations of voice recognition software. These areas are purely typographical due to imperfections of the software programs and do not reflect any compromise in the patient's medical care. Please read the chart carefully and recognize, using context, where these substitutions have occurred. Plan discussed with: Patient, Spouse, Other Date of Service: Oct 02, 2024 Billing Provider: NABEEL BAILON MD Cardiology Common Codes: [id number] Oct 02, 2024 12:05
[2024-10-02 12:31] LABS: Albumin 3.7 g/dL (3.2-4.8); Alkaline Phosphatase 91 U/L (46-116); Anion Gap 9 (5-15); BUN/Creatinine Ratio 21.3 (10.0-20.0); Bilirubin, Total 0.8 mg/dL (0.2-1.0); Blood Urea Nitrogen 20 mg/dL (9-23); Calcium 9.4 mg/dL (8.7-10.4); Carbon Dioxide 30 mmol/L (20-31)
--- NOTE | 2024-10-02 12:33 | DVH ---
CHEST RADIOGRAPH Indication: PNA Technique: Single frontal view of the chest was obtained Comparison: XY CHEST PORTABLE on DOS: 10/01/24 FINDINGS: Lines and Tubes: Dual-chamber pacemaker with right atrial and ventricular leads. Lungs: Patchy bilateral pulmonary opacities. Pleura: No effusion. No pneumothorax. Cardiomediastinal contours: Cardiomegaly. Bones: No acute osseous abnormality. IMPRESSION: 1. Bilateral pulmonary opacities which may reflect edema or pneumonia.
[2024-10-02 12:37] LABS: Alanine Aminotransferase 409 U/L (7-40); Aspartate Aminotransferase 214 U/L (13-40); Chloride 95 mmol/L (98-107); Glucose 171 mg/dL (74-106); Sodium 134 mmol/L (136-145)
[2024-10-02] MEDS: GLUCOSAMINE CHONDROITIN VIT C PO SCH (12:37)
[2024-10-02] MEDS: traZODone HCL 50 MG TAB PO SCH ×2 (12:47→21:04)
[2024-10-02] MEDS: cefTRIAXone 1GM/50ML D5W 50 ML IV SCH (12:49)
[2024-10-02] MEDS: METOPROLOL SUCCINATE XL 50 MG TAB PO SCH (12:52)
[2024-10-02] MEDS: AMIODARONE HCL 200 MG TAB PO SCH (12:52)
[2024-10-02 13:26] LABS: Protein, Urine 19.6 mg/dL (1-14)
[2024-10-02 13:29] LABS: Creatinine, Urine 13.09 mg/dL (30.0-125.0); Urine Protein/Creatinine Ratio 1.5
[2024-10-02] MEDS: POTASSIUM EFFERVESENT TAB 25 MEQ PO ONE ×2 (14:00→15:34)
[2024-10-02] MEDS: AZITHROMYCIN 250 MG TAB PO ONE (14:01)
[2024-10-02] MEDS: FUROSEMIDE 20 MG/2 ML VIAL IV ONE (15:33)
--- NOTE | 2024-10-02 16:31 | MEDREC ---
[facility] Intervention Section I [facility] Intervention: Review courses of therapy (DUE TO PROLONG (QTc > 500) PLEASE CONSIDER SWITCHING AZITHROMYCIN TO DOXYCYLINE) ROXANNE BURKETT PHARMACIST Oct 02, 2024 16:31
[2024-10-02] MEDS: FUROSEMIDE 20 MG/2 ML VIAL IV SCH (18:01)
--- NOTE | 2024-10-02 19:56 | DVHPNRES ---
Progress Note Date Seen: Oct 02, 2024 Resident Creating Document: ZI ESPINOSA LEANA Has the PT tested + for MRSA If YES, has PT been informed?: Yes Medical Necessity Reason Pt with a Central, PICC or Fol: No Subjective Review of Systems A pleasant 73-year-old female presented to the emergency room with a three-day history of generalized weakness, increased fatigue, shortness of breath, dyspnea on exertion, periorbital edema, myalgia, and joint pain, but denied chest pain, palpitations, diaphoresis, dizziness, or syncopal events. On arrival, her oxygen saturation was 65% on room air. A 12-lead electrocardiogram showed an atrial ventricular paced rhythm with underlying sinus rhythm, and her baseline troponin level was 86 ng/L. She recently underwent cardiac ablation at [facility] on 09/17/2024. Per electrophysiology, she is to reduce amiodarone to 200 mg daily and continue Eliquis 5 mg twice daily, with a follow-up on 10/24/2024. She also has an outpatient appointment with Dr. Wheeler on 10/03/2024 at 0900. Her significant medical history includes intermittent high-degree AV block with a dual-chamber pacemaker ([employer]ronik) implanted on 08/28/2019, longstanding persistent atrial fibrillation with cardiac ablations in 2022 and 2023, hypertension, diverticulosis, and hemorrhoids. Today, patient seen and examined at the bedside. Patient is feeling better since admission but still complained of shortness of bed. Patient reports: No new complaints Changes from previous H/P or p: Changes Objective vital signs Vital Sign Date Time Temp Pulse Resp B/P (MAP) Pulse Ox O2 Delivery O2 Flow Rate FiO2 10/02/24 18:01 103/54 10/02/24 17:00 97.5 63 20 93 97.5 10/02/24 10:44 Oxymizer 8 N/A Total Intake and Output 10/01/24 10/01/24 10/02/24 15:00 23:00 07:00 Intake Total 550.000 ml 200 ml Balance 550.000 ml 200 ml medications Current Medications Medications Dose Ordered Sig/Chai Route Start Time Stop Time Status Last Admin Dose Admin Albuterol 2.5 mg Q4HPRN PRN NEB 10/01/24 11:45 Ipratropium [place] 0.5 mg Q4HPRN PRN NEB 10/01/24 11:45 Apixaban 5 mg BID PO 10/01/24 22:00 10/02/24 12:51 5 MG Latanoprost 1 drop QPM EACHEYE 10/01/24 18:00 10/02/24 18:02 1 DROP Timolol Maleate 1 drop BID EACHEYE 10/01/24 22:00 Buspirone HCl 5 mg TID PO 10/01/24 14:00 10/02/24 14:09 5 MG Patient Own Medication 1 cap DAILY PO 10/02/24 10:00 Nitroglycerin 0.4 mg Q5MINP PRN SL 10/01/24 11:45 Amiodarone HCl 200 mg DAILY PO 10/02/24 10:00 10/02/24 12:52 200 MG Atorvastatin Calcium 40 mg HS PO 10/01/24 22:00 10/02/24 00:08 40 MG Ceftriaxone Sodium 50 ml @ 100 mls/hr DAILY@09 IV 10/02/24 09:00 10/02/24 12:49 100 MLS/HR Azithromycin 250 ml @ 125 mls/hr DAILY IV 10/03/24 10:00 UNV Potassium Bicarbonate 25 meq DAILY PO 10/03/24 10:00 Azithromycin 500 mg DAILY PO 10/03/24 10:00 Metoprolol Succinate 25 mg DAILY PO 10/03/24 10:00 Furosemide 20 mg BIDD IV 10/02/24 18:00 10/02/24 18:01 20 MG Trazodone HCl 50 mg HS PO 10/02/24 22:00 Examination General Appearance: Alert, Oriented X3, Cooperative, No acute distress HEENT: Atraumatic, PERRLA, EOMI, Mucous membrane moist/pink Respiratory: Bilateral crepitation Cardiovascular: Regular rate, Normal S1, Normal S2, No murmurs, no chest wall tenderness Abdominal: Normal bowel sounds, Soft, No tenderness, No hepatospenomegaly, No masses Extremities: No clubbing, No cyanosis, No edema, Normal pulses, No tenderness/swelling Skin: No rashes, No breakdown, No significant lesion Neuro: Normal gait, Normal speech, Strength at 5/5 X4 ext, Normal tone, Sensation intact, Cranial nerves 3-12 NL, Reflexes 2+ Psych/Mental Status: Mental status NL, Mood NL laboratory and microbiology Laboratory Tests 10/02/24 11:45 Test 10/02/24 11:45 Range/Units Serum Glucose 171 H 74-106 mg/dL Microbiology Date/Time Source Procedure Growth Status 10/01/24 23:58 Nose MRSA Screen - Final Complete 10/01/24 13:26 Blood Blood Culture - Preliminary NO GROWTH AFTER 24 HOURS OF INCUBATION. Resulted Labs and/or images reviewed: Labs reviewed by me, Image(s) reviewed by me Problem List/Assessment/Plan Problem List/Assessment/Plan Acute hypoxic respiratory failure, likely due to pneumonia Pneumonia likely due to Gram-positive Gram-negative/viral Sepsis, likely due to pneumonia NSTEMI, type 2, likely due to above Chest x-ray shows bilateral diffuse nonhomogeneous infiltration Continue oxygen through nasal cannula Injection azithromycin and ceftriaxone History of atrial fibrillation, status post ablation Continue amiodarone Continue apixaban Continue metoprolol Hyponatremia, supplemented Hyponatremia, monitoring Acute on chronic diastolic heart failure Echo from 09/01 shows ejection fraction 60% with left atrial enlargement with concentric LVH and mild aortic root enlargement Lasix 20 mg b.i.d. Hyperlipidemia Continue atorvastatin DIET: Cardiac diet DVT PROPHYLAXIS: Patient is on apixaban GI PROPHYLAXIS: Protonix BOWEL REGIMEN: Colace 100 mg b.i.d. as needed CODE STATUS: Goal of care discussed for more than 10 minute, full code DISPOSITION: Med surge Patient's status discussed with the patient and on the bedside. Case discussed with Dr. Patel Plan discussed with: Patient, Spouse, Other (RN) My Orders My Orders Orders - ZI ESPINOSA RESDIMUKESH Procedure Category Date Status Time Furosemide Injection PHA 10/02/24 In Process (Lasix Injection) 18:00 Troponin-I Hs LAB 10/03/24 Verified 04:00 Comprehensive LAB 10/03/24 Verified Metabolic Panel 04:00 Complete Blood Count LAB 10/03/24 Verified 04:00 Date of Service: Oct 02, 2024 Billing Provider: ALBINA PATEL MD Common Visit Codes: [id number] INP/OBS CARE(HIGH) ZI ESPINOSA RESDIENT Oct 02, 2024 19:56 ALBINA PATEL MD Oct 03, 2024 11:40
[2024-10-03] VITALS (10 sets, daily range): BP systolic 11–127; BP diastolic 5–59; PULSE 59–62; RESP 17–22; TEMP 97.7–98.2; O2SAT 91–97
[2024-10-03 07:12] LABS: Basophils # (auto) 0 10 ^3/uL (0-0.2); Basophils % (auto) 0.1 % (0.0-2.0); Eosinophils # (auto) 0 10 ^3/uL (0-0.8); Hematocrit 35.6 % (36.0-46.0); Hemoglobin 11.8 g/dL (12.2-16.2); Lymphocytes # (auto) 0.6 10 ^3/uL (0.4-5.4); Lymphocytes % (auto) 3.6 % (10.0-50.0); Mean Corpuscular Hemoglobin 30.5 pg (28.0-32.0); Mean Corpuscular Hgb Conc. 33.2 g/dL (32.0-36.0); Mean Corpuscular Volume 91.7 fL (80.0-100.0); Monocytes # (auto) 1.2 10 ^3/uL (0-1.3); Monocytes % (auto) 7.5 % (0.0-12.0); Neutrophils # (auto) 14.4 10 ^3/uL (1.6-8.6); Neutrophils % (auto) 88.8 % (37.0-80.0); Platelet Count (auto) 278 10^3/uL (140-450); Red Blood Cells 3.88 10^6/uL (4.0-5.20); Red Cell Distribution Width 14.2 % (11.8-14.3); White Blood Cell 16.2 10^3/uL (4.4-10.8)
[2024-10-03 07:48] LABS: Albumin 3.7 g/dL (3.2-4.8); Alkaline Phosphatase 97 U/L (46-116); Anion Gap 11 (5-15); Calcium 9.3 mg/dL (8.7-10.4); Carbon Dioxide 30 mmol/L (20-31); Glucose 101 mg/dL (74-106); Sodium 137 mmol/L (136-145)
[2024-10-03 07:49] LABS: Bilirubin, Total 0.8 mg/dL (0.2-1.0); Total Protein 5.7 g/dL (5.7-8.2)
[2024-10-03 07:57] LABS: Aspartate Aminotransferase 192 U/L (13-40); Chloride 96 mmol/L (98-107)
[2024-10-03 08:41] LABS: Alanine Aminotransferase 390 U/L (7-40); Blood Urea Nitrogen 24 mg/dL (9-23); Potassium 5.4 mmol/L (3.5-5.1)
[2024-10-03] MEDS: METOPROLOL SUCCINATE XL 50 MG TAB PO SCH (10:00)
[2024-10-03] MEDS ORDERED: AZITHROMYCIN 500MG/ 250ML 250 ML IV SCH (10:00)
[2024-10-03] MEDS: POTASSIUM EFFERVESENT TAB 25 MEQ PO SCH (10:00)
[2024-10-03] MEDS: PANTOPRAZOLE 40 MG/10 ML VIAL INJ IV SCH (10:28)
[2024-10-03] MEDS: AZITHROMYCIN 250 MG TAB PO SCH (10:31)
[2024-10-03] MEDS: CALCIUM GLUC 1,000mg/50ml-NS 50 ML IV ONE (11:39)
--- NOTE | 2024-10-03 12:59 | DVHPN2 ---
Consult Progress Note Date Seen: Oct 03, 2024 Subjective Review of Systems: CVS:Normal, RESPIRATORY:Abnormal, NEURO:Normal Other Systems: C/o mild SOB. Pedal edema dissipated Objective vital signs Vital Sign Date Time Temp Pulse Resp B/P (MAP) Pulse Ox O2 Delivery O2 Flow Rate FiO2 10/03/24 10:43 94 Oxymizer 6 N/A 10/03/24 10:00 62 107/55 10/03/24 08:43 98.2 22 98.2 Total Intake and Output 10/02/24 10/02/24 10/03/24 15:00 23:00 07:00 Intake Total 50 ml 834 ml 0 ml Output Total 800 ml 800 ml Balance 50 ml 34 ml -800 ml medications Current Medications Medications Dose Ordered Sig/Chai Route Start Time Stop Time Status Last Admin Dose Admin Albuterol 2.5 mg Q4HPRN PRN NEB 10/01/24 11:45 Ipratropium [place] 0.5 mg Q4HPRN PRN NEB 10/01/24 11:45 Apixaban 5 mg BID PO 10/01/24 22:00 10/03/24 10:31 5 MG Latanoprost 1 drop QPM EACHEYE 10/01/24 18:00 10/02/24 18:02 1 DROP Timolol Maleate 1 drop BID EACHEYE 10/01/24 22:00 10/03/24 10:28 1 DROP Buspirone HCl 5 mg TID PO 10/01/24 14:00 10/03/24 05:53 5 MG Patient Own Medication 1 cap DAILY PO 10/02/24 10:00 Nitroglycerin 0.4 mg Q5MINP PRN SL 10/01/24 11:45 Amiodarone HCl 200 mg DAILY PO 10/02/24 10:00 10/03/24 10:31 200 MG Atorvastatin Calcium 40 mg HS PO 10/01/24 22:00 10/02/24 21:04 40 MG Ceftriaxone Sodium 50 ml @ 100 mls/hr DAILY@09 IV 10/02/24 09:00 10/03/24 10:29 100 MLS/HR Azithromycin 250 ml @ 125 mls/hr DAILY IV 10/03/24 10:00 UNV Azithromycin 500 mg DAILY PO 10/03/24 10:00 10/03/24 10:31 500 MG Metoprolol Succinate 25 mg DAILY PO 10/03/24 10:00 Furosemide 20 mg BIDD IV 10/02/24 18:00 10/03/24 05:53 20 MG Trazodone HCl 50 mg HS PO 10/02/24 22:00 10/02/24 21:04 50 MG Pantoprazole Sodium 40 mg DAILY IV 10/03/24 10:00 10/03/24 10:28 40 MG Examination: LUNGS:Abnormal (Diminished), CVS:Normal (AV paced rhythm with underlined sinus rhythm), NEURO:Normal laboratory and microbiology Laboratory Tests 10/03/24 04:51 Test 10/03/24 04:51 Range/Units Serum Glucose 101 74-106 mg/dL Problem List/Assessment/Plan Problem List/Assessment/Plan Sepsis with PNA Acute on chronic decompensated HFpEF with LVEF 60% Acute hypoxic respiratory failure secondary to above Severe hypokalemia NSTEMI likely type 2 secondary to above Likely successful AF ablation on 09/17/2024, currently on amiodarone/Eliquis therapy 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 Bailon) * Echocardiogram from 08/30/2024 revealed EF 60% with normal RV function * Left atrial enlargement with concentric LVH and mild aortic root enlargement * Cardiolite stress test from 11/02/2021 no stress-induced ischemia. LVEF 68%, normal LVEF * Continue amiodarone q.d. and Eliquis b.i.d. per EP instructions * Continue metoprolol XL with parameters * Replete electrolytes, K>4 and Mg>2 * ABX therapy per primary care team Rescheduled for follow-up with Dr. Wheeler on 10/17/24. Continue follow-up with EP at [facility] on 10/24/24. Cardiac stable. There is no further cardiac work-up indicated at this time. Kindly call if in need to re-consult. Thank you for allowing us to participate in this patient's care. This medical document was created using an electronic medical record system with voice recognition software and computerized dictation system. Although this document has been carefully reviewed, there might still be some phonetic and typographical errors. Occasional wrong-word or ``sound-alike substitutions may have occurred due to the inherent limitations of voice recognition software. These areas are purely typographical due to imperfections of the software programs and do not reflect any compromise in the patient's medical care. Please read the chart carefully and recognize, using context, where these substitutions have occurred. Plan discussed with: Patient, Other Date of Service: Oct 03, 2024 Billing Provider: NABEEL BAILON MD Cardiology Common Codes: [id number] [facility] Oct 03, 2024 12:59
--- NOTE | 2024-10-03 16:06 | DVHPNRES ---
Progress Note Date Seen: Oct 03, 2024 Resident Creating Document: ZI ESPINOSA LEANA Has the PT tested + for MRSA If YES, has PT been informed?: Yes Medical Necessity Reason Pt with a Central, PICC or Fol: No Subjective Review of Systems A pleasant 73-year-old female presented to the emergency room with a three-day history of generalized weakness, increased fatigue, shortness of breath, dyspnea on exertion, periorbital edema, myalgia, and joint pain, but denied chest pain, palpitations, diaphoresis, dizziness, or syncopal events. On arrival, her oxygen saturation was 65% on room air. A 12-lead electrocardiogram showed an atrial ventricular paced rhythm with underlying sinus rhythm, and her baseline troponin level was 86 ng/L. She recently underwent cardiac ablation at [facility] on 09/17/2024. Per electrophysiology, she is to reduce amiodarone to 200 mg daily and continue Eliquis 5 mg twice daily, with a follow-up on 10/24/2024. She also has an outpatient appointment with Dr. Wheeler on 10/03/2024 at 0900. Her significant medical history includes intermittent high-degree AV block with a dual-chamber pacemaker ([employer]ronik) implanted on 08/28/2019, longstanding persistent atrial fibrillation with cardiac ablations in 2022 and 2023, hypertension, diverticulosis, and hemorrhoids. Today, patient seen and examined at the bedside. Patient is feeling better since admission but still complained of shortness of bed. Patient reports: No new complaints, Feels better Changes from previous H/P or p: Changes Objective vital signs Vital Sign Date Time Temp Pulse Resp B/P (MAP) Pulse Ox O2 Delivery O2 Flow Rate FiO2 10/03/24 13:00 97.8 60 20 109/52 (71) 92 97.8 10/03/24 10:43 Oxymizer 6 N/A Total Intake and Output 10/02/24 10/02/24 10/03/24 15:00 23:00 07:00 Intake Total 50 ml 834 ml 0 ml Output Total 800 ml 800 ml Balance 50 ml 34 ml -800 ml medications Current Medications Medications Dose Ordered Sig/Chai Route Start Time Stop Time Status Last Admin Dose Admin Albuterol 2.5 mg Q4HPRN PRN NEB 10/01/24 11:45 Ipratropium [place] 0.5 mg Q4HPRN PRN NEB 10/01/24 11:45 Apixaban 5 mg BID PO 10/01/24 22:00 10/03/24 10:31 5 MG Latanoprost 1 drop QPM EACHEYE 10/01/24 18:00 10/02/24 18:02 1 DROP Timolol Maleate 1 drop BID EACHEYE 10/01/24 22:00 10/03/24 10:28 1 DROP Buspirone HCl 5 mg TID PO 10/01/24 14:00 10/03/24 14:13 5 MG Patient Own Medication 1 cap DAILY PO 10/02/24 10:00 Nitroglycerin 0.4 mg Q5MINP PRN SL 10/01/24 11:45 Amiodarone HCl 200 mg DAILY PO 10/02/24 10:00 10/03/24 10:31 200 MG Atorvastatin Calcium 40 mg HS PO 10/01/24 22:00 10/02/24 21:04 40 MG Ceftriaxone Sodium 50 ml @ 100 mls/hr DAILY@09 IV 10/02/24 09:00 10/03/24 10:29 100 MLS/HR Azithromycin 250 ml @ 125 mls/hr DAILY IV 10/03/24 10:00 UNV Azithromycin 500 mg DAILY PO 10/03/24 10:00 10/03/24 10:31 500 MG Metoprolol Succinate 25 mg DAILY PO 10/03/24 10:00 Trazodone HCl 50 mg HS PO 10/02/24 22:00 10/02/24 21:04 50 MG Pantoprazole Sodium 40 mg DAILY IV 10/03/24 10:00 10/03/24 10:28 40 MG Furosemide 20 mg DAILY PO 10/04/24 10:00 Examination General Appearance: Alert, Oriented X3, Cooperative, No acute distress HEENT: Atraumatic, PERRLA, EOMI, Mucous membrane moist/pink Respiratory: Bilateral crepitation Cardiovascular: Regular rate, Normal S1, Normal S2, No murmurs, no chest wall tenderness Abdominal: Normal bowel sounds, Soft, No tenderness, No hepatospenomegaly, No masses Extremities: No clubbing, No cyanosis, No edema, Normal pulses, No tenderness/swelling Skin: No rashes, No breakdown, No significant lesion Neuro: Normal gait, Normal speech, Strength at 5/5 X4 ext, Normal tone, Sensation intact, Cranial nerves 3-12 NL, Reflexes 2+ Psych/Mental Status: Mental status NL, Mood NL laboratory and microbiology Laboratory Tests 10/03/24 04:51 Test 10/03/24 04:51 Range/Units Serum Glucose 101 74-106 mg/dL Microbiology Date/Time Source Procedure Growth Status 10/01/24 23:58 Nose MRSA Screen - Final Complete 10/01/24 13:26 Blood Blood Culture - Preliminary NO GROWTH AFTER 48 HOURS OF INCUBATION. 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 Chest x-ray shows bilateral diffuse nonhomogeneous infiltration Continue oxygen through nasal cannula Injection azithromycin and ceftriaxone History of atrial fibrillation, status post ablation Continue amiodarone Continue apixaban Continue metoprolol Transaminitis, likely hemodynamically mediated Monitor Hyponatremia, supplemented Hyponatremia, monitoring Hyperkalemia, hyperkalemia treated protocol given Glaucoma, continue latanoprost and timolol Acute on chronic diastolic heart failure Echo from 09/01 shows ejection fraction 60% with left atrial enlargement with concentric LVH and mild aortic root enlargement Lasix 20 mg b.i.d. Hyperlipidemia Continue atorvastatin DIET: Cardiac diet DVT PROPHYLAXIS: Patient is on apixaban GI PROPHYLAXIS: Protonix BOWEL REGIMEN: Colace 100 mg b.i.d. as needed CODE STATUS: Goal of care discussed for more than 10 minute, full code DISPOSITION: Med surge Patient's status discussed with the patient and on the bedside. Case discussed with Dr. Zambrano Plan discussed with: Patient, Other (RN) My Orders My Orders Orders - ZI ESPINOSA RESDIMUKESH Procedure Category Date Status Time Pantoprazole PHA 10/03/24 In Process (Protonix) 10:00 Date of Service: Oct 03, 2024 Billing Provider: SUKUMAR GATICA MD Common Visit Codes: [id number] INP/OBS CARE(HIGH) ZI ESPINOSA RESDIENT Oct 03, 2024 16:06 SUKUMAR GATICA MD Oct 04, 2024 09:06
[2024-10-04] VITALS (11 sets, daily range): BP systolic 101–113; BP diastolic 53–66; PULSE 59–88; RESP 16–20; TEMP 97.8–98.3; O2SAT 91–95
[2024-10-04 06:35] LABS: Albumin 3.3 g/dL (3.2-4.8); Alkaline Phosphatase 91 U/L (46-116); Anion Gap 5 (5-15); BUN/Creatinine Ratio 23.1 (10.0-20.0); Bilirubin, Total 0.9 mg/dL (0.2-1.0); Blood Urea Nitrogen 18 mg/dL (9-23); Calcium 9.3 mg/dL (8.7-10.4); Glucose 97 mg/dL (74-106)
[2024-10-04 06:36] LABS: Alanine Aminotransferase 293 U/L (7-40); Aspartate Aminotransferase 108 U/L (13-40); Carbon Dioxide 34 mmol/L (20-31); Chloride 97 mmol/L (98-107); Potassium 3.5 mmol/L (3.5-5.1); Sodium 136 mmol/L (136-145); Total Protein 5.3 g/dL (5.7-8.2)
[2024-10-04 06:38] LABS: Basophils # (auto) 0 10 ^3/uL (0-0.2); Basophils % (auto) 0.1 % (0.0-2.0); Eosinophils # (auto) 0.1 10 ^3/uL (0-0.8); Eosinophils % (auto) 0.9 % (0.0-7.0); Hematocrit 33.6 % (36.0-46.0); Hemoglobin 11.5 g/dL (12.2-16.2); Lymphocytes # (auto) 0.9 10 ^3/uL (0.4-5.4); Lymphocytes % (auto) 10.9 % (10.0-50.0); Mean Corpuscular Hemoglobin 30.9 pg (28.0-32.0); Mean Corpuscular Hgb Conc. 34.2 g/dL (32.0-36.0); Mean Corpuscular Volume 90.3 fL (80.0-100.0); Monocytes # (auto) 0.9 10 ^3/uL (0-1.3); Monocytes % (auto) 10.8 % (0.0-12.0); Neutrophils # (auto) 6.5 10 ^3/uL (1.6-8.6); Neutrophils % (auto) 77.3 % (37.0-80.0); Platelet Count (auto) 226 10^3/uL (140-450); Red Blood Cells 3.72 10^6/uL (4.0-5.20); Red Cell Distribution Width 14.2 % (11.8-14.3); White Blood Cell 8.4 10^3/uL (4.4-10.8)
[2024-10-04] MEDS: FUROSEMIDE 20 MG TAB PO SCH (09:13)
--- NOTE | 2024-10-04 11:14 | DVH ---
EXAM: XY CHEST XRAY 1 VIEW Indication: Pneumonia Technique: Single frontal view of the chest was obtained Comparison: XY CHEST PORTABLE on DOS: 10/02/24, XY CHEST PORTABLE on DOS: 10/01/24 FINDINGS: Lines and Tubes: Cardiac pacemaker projects over left chest wall. Lungs: No focal consolidation. Diffuse interstitial opacities. Pleura: No effusion. No pneumothorax. Cardiomediastinal contours: Cardiomegaly. Bones: No acute osseous abnormality. IMPRESSION: Cardiomegaly with pulmonary edema.
--- NOTE | 2024-10-04 15:17 | DVHPNRES ---
Progress Note Date Seen: Oct 04, 2024 Resident Creating Document: ZI ESPINOSA SANDRAMUKESH Has the PT tested + for MRSA If YES, has PT been informed?: Yes Medical Necessity Reason Pt with a Central, PICC or Fol: No Subjective Review of Systems A pleasant 73-year-old female presented to the emergency room with a three-day history of generalized weakness, increased fatigue, shortness of breath, dyspnea on exertion, periorbital edema, myalgia, and joint pain, but denied chest pain, palpitations, diaphoresis, dizziness, or syncopal events. On arrival, her oxygen saturation was 65% on room air. A 12-lead electrocardiogram showed an atrial ventricular paced rhythm with underlying sinus rhythm, and her baseline troponin level was 86 ng/L. She recently underwent cardiac ablation at [facility] on 09/17/2024. Per electrophysiology, she is to reduce amiodarone to 200 mg daily and continue Eliquis 5 mg twice daily, with a follow-up on 10/24/2024. She also has an outpatient appointment with Dr. Wheeler on 10/03/2024 at 0900. Her significant medical history includes intermittent high-degree AV block with a dual-chamber pacemaker (Biotronik) implanted on 08/28/2019, longstanding persistent atrial fibrillation with cardiac ablations in 2022 and 2023, hypertension, diverticulosis, and hemorrhoids. Today, patient seen and examined at the bedside. Patient is feeling better since admission but still complained of shortness of bed. Objective vital signs Vital Sign Date Time Temp Pulse Resp B/P (MAP) Pulse Ox O2 Delivery O2 Flow Rate FiO2 10/04/24 10:00 93 Nasal Cannula* 4 36 10/04/24 09:13 105/66 10/04/24 09:13 60 10/04/24 09:05 16 10/04/24 09:00 97.8 97.8 Total Intake and Output 10/03/24 10/03/24 10/04/24 15:00 23:00 07:00 Intake Total 50 ml 460 ml 240 ml Output Total 1600 ml 500 ml Balance 50 ml -1140 ml -260 ml medications Current Medications Medications Dose Ordered Sig/Chai Route Start Time Stop Time Status Last Admin Dose Admin Albuterol 2.5 mg Q4HPRN PRN NEB 10/01/24 11:45 Ipratropium [place] 0.5 mg Q4HPRN PRN NEB 10/01/24 11:45 Apixaban 5 mg BID PO 10/01/24 22:00 10/04/24 09:12 5 MG Latanoprost 1 drop QPM EACHEYE 10/01/24 18:00 10/02/24 18:02 1 DROP Timolol Maleate 1 drop BID EACHEYE 10/01/24 22:00 10/03/24 21:42 1 DROP Buspirone HCl 5 mg TID PO 10/01/24 14:00 10/04/24 14:41 5 MG Patient Own Medication 1 cap DAILY PO 10/02/24 10:00 Nitroglycerin 0.4 mg Q5MINP PRN SL 10/01/24 11:45 Amiodarone HCl 200 mg DAILY PO 10/02/24 10:00 10/04/24 09:11 200 MG Atorvastatin Calcium 40 mg HS PO 10/01/24 22:00 10/03/24 21:40 40 MG Ceftriaxone Sodium 50 ml @ 100 mls/hr DAILY@09 IV 10/02/24 09:00 10/04/24 09:10 100 MLS/HR Azithromycin 250 ml @ 125 mls/hr DAILY IV 10/03/24 10:00 UNV Azithromycin 500 mg DAILY PO 10/03/24 10:00 10/04/24 09:14 500 MG Metoprolol Succinate 25 mg DAILY PO 10/03/24 10:00 10/04/24 09:13 25 MG Trazodone HCl 50 mg HS PO 10/02/24 22:00 10/03/24 21:40 50 MG Pantoprazole Sodium 40 mg DAILY IV 10/03/24 10:00 10/04/24 09:11 40 MG Furosemide 20 mg DAILY PO 10/04/24 10:00 10/04/24 09:13 20 MG Examination General Appearance: Alert, Oriented X3, Cooperative, No acute distress HEENT: Atraumatic, PERRLA, EOMI, Mucous membrane moist/pink Respiratory: Bilateral crepitation Cardiovascular: Regular rate, Normal S1, Normal S2, No murmurs, no chest wall tenderness Abdominal: Normal bowel sounds, Soft, No tenderness, No hepatospenomegaly, No masses Extremities: No clubbing, No cyanosis, No edema, Normal pulses, No tenderness/swelling Skin: No rashes, No breakdown, No significant lesion Neuro: Normal gait, Normal speech, Strength at 5/5 X4 ext, Normal tone, Sensation intact, Cranial nerves 3-12 NL, Reflexes 2+ Psych/Mental Status: Mental status NL, Mood NL laboratory and microbiology Laboratory Tests 10/04/24 05:47 Test 10/04/24 05:47 Range/Units Serum Glucose 97 74-106 mg/dL Microbiology Date/Time Source Procedure Growth Status 10/01/24 23:58 Nose MRSA Screen - Final Complete 10/01/24 13:26 Blood Blood Culture - Preliminary NO GROWTH AFTER 72 HOURS OF INCUBATION. 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 Chest x-ray shows bilateral diffuse nonhomogeneous infiltration Continue oxygen through nasal cannula Injection azithromycin and ceftriaxone History of atrial fibrillation, status post ablation Continue amiodarone Continue apixaban Continue metoprolol Grade 1 decubitus ulcers Transaminitis, likely hemodynamically mediated Monitor Hyponatremia, supplemented Hyponatremia, monitoring Hyperkalemia, hyperkalemia treated protocol given Glaucoma, continue latanoprost and timolol Acute on chronic diastolic heart failure Echo from 09/01 shows ejection fraction 60% with left atrial enlargement with concentric LVH and mild aortic root enlargement Lasix 20 mg b.i.d. Hyperlipidemia Continue atorvastatin DIET: Cardiac diet DVT PROPHYLAXIS: Patient is on apixaban GI PROPHYLAXIS: Protonix BOWEL REGIMEN: Colace 100 mg b.i.d. as needed CODE STATUS: Goal of care discussed for more than 10 minute, full code DISPOSITION: Med surge Patient's status discussed with the patient. Today, patient is status has improved, but still needs oxygen through nasal cannula 5 L. Case discussed with Dr. Zambrano Plan discussed with: Patient, Other (RN) My Orders My Orders Orders - ZI ESPINOSA RESDIMUKESH Procedure Category Date Status Time Code Status CODE 10/03/24 Transmitted 19:05 Full Code ANGELA 10/03/24 In Process 19:05 Chest Xray 1 View XY 12/27/24 Resulted 07:02 ZI ESPINOSA Oct 04, 2024 15:17
[2024-10-05] VITALS (10 sets, daily range): BP systolic 103–111; BP diastolic 48–61; PULSE 60–95; RESP 17–18; TEMP 97.7–98.1; O2SAT 60–96
[2024-10-05] MEDS: Juven Fruit Punch Powder PACKET 28.8gm PO SCH (09:40)
[2024-10-05 09:49] LABS: Albumin 3.7 g/dL (3.2-4.8); Alkaline Phosphatase 94 U/L (46-116); Anion Gap 6 (5-15); BUN/Creatinine Ratio 18.5 (10.0-20.0); Blood Urea Nitrogen 15 mg/dL (9-23); Calcium 9.5 mg/dL (8.7-10.4); Sodium 136 mmol/L (136-145)
[2024-10-05 09:50] LABS: Bilirubin, Total 1.2 mg/dL (0.2-1.0); Total Protein 5.9 g/dL (5.7-8.2)
[2024-10-05 09:53] LABS: Alanine Aminotransferase 253 U/L (7-40); Aspartate Aminotransferase 71 U/L (13-40); Carbon Dioxide 32 mmol/L (20-31); Chloride 98 mmol/L (98-107); Glucose 144 mg/dL (74-106); Potassium 3.2 mmol/L (3.5-5.1)
[2024-10-05 09:57] LABS: Basophils # (auto) 0 10 ^3/uL (0-0.2); Basophils % (auto) 0.2 % (0.0-2.0); Eosinophils # (auto) 0.2 10 ^3/uL (0-0.8); Eosinophils % (auto) 2.3 % (0.0-7.0); Hematocrit 38.5 % (36.0-46.0); Hemoglobin 12.9 g/dL (12.2-16.2); Lymphocytes # (auto) 0.6 10 ^3/uL (0.4-5.4); Lymphocytes % (auto) 9.4 % (10.0-50.0); Mean Corpuscular Hemoglobin 30.3 pg (28.0-32.0); Mean Corpuscular Hgb Conc. 33.5 g/dL (32.0-36.0); Mean Corpuscular Volume 90.5 fL (80.0-100.0); Monocytes # (auto) 0.5 10 ^3/uL (0-1.3); Monocytes % (auto) 7.5 % (0.0-12.0); Neutrophils # (auto) 5.5 10 ^3/uL (1.6-8.6); Neutrophils % (auto) 80.6 % (37.0-80.0); Platelet Count (auto) 263 10^3/uL (140-450); Red Blood Cells 4.25 10^6/uL (4.0-5.20); Red Cell Distribution Width 13.8 % (11.8-14.3); White Blood Cell 6.8 10^3/uL (4.4-10.8)
--- NOTE | 2024-10-05 12:13 | DVHPNRES ---
Progress Note Date Seen: Oct 05, 2024 Resident Creating Document: USMAN HALE RESIDENT Has the PT tested + for MRSA If YES, has PT been informed?: Yes Medical Necessity Reason Pt with a Central, PICC or Fol: No Subjective Review of Systems Overnight patient afebrile, blood pressure well tolerated, patient was 3 L of Oxymizer overnight now patient on 2 L of nasal cannula oxygen. this morning Labs unremarkable, except mild hypokalemia, oral supplements given, IV line out, chest x-ray shows continued pleural effusion as well as pulmonary congestion Likely worsening, increased patient's Lasix at this point. We will try to wean to room air, walk test and if patient is able to maintain oxygen more than 94% discharged home. MRSA, blood culture unremarkable. continue ceftriaxone azithromycin. Patient reports: No new complaints Objective vital signs Vital Sign Date Time Temp Pulse Resp B/P (MAP) Pulse Ox O2 Delivery O2 Flow Rate FiO2 10/05/24 09:53 60 111/48 10/05/24 09:30 95 Nasal Cannula 2.0 10/05/24 09:30 28 10/05/24 09:00 97.8 17 97.8 Total Intake and Output 10/04/24 10/04/24 10/05/24 15:00 23:00 07:00 Intake Total 730 ml 200 ml Output Total 900 ml 520 ml Balance -170 ml -320 ml medications Current Medications Medications Dose Ordered Sig/Chai Route Start Time Stop Time Status Last Admin Dose Admin Albuterol 2.5 mg Q4HPRN PRN NEB 10/01/24 11:45 Ipratropium [place] 0.5 mg Q4HPRN PRN NEB 10/01/24 11:45 Apixaban 5 mg BID PO 10/01/24 22:00 10/05/24 09:52 5 MG Latanoprost 1 drop QPM EACHEYE 10/01/24 18:00 10/02/24 18:02 1 DROP Timolol Maleate 1 drop BID EACHEYE 10/01/24 22:00 10/05/24 09:53 1 DROP Buspirone HCl 5 mg TID PO 10/01/24 14:00 10/05/24 05:21 5 MG Patient Own Medication 1 cap DAILY PO 10/02/24 10:00 Nitroglycerin 0.4 mg Q5MINP PRN 10/01/24 11:45 Amiodarone HCl 200 mg DAILY PO 10/02/24 10:00 10/05/24 09:44 200 MG Atorvastatin Calcium 40 mg HS PO 10/01/24 22:00 10/04/24 21:07 40 MG Ceftriaxone Sodium 50 ml @ 100 mls/hr DAILY@09 IV 10/02/24 09:00 10/05/24 09:44 100 MLS/HR Azithromycin 250 ml @ 125 mls/hr DAILY IV 10/03/24 10:00 UNV Azithromycin 500 mg DAILY PO 10/03/24 10:00 10/05/24 09:45 500 MG Metoprolol Succinate 25 mg DAILY PO 10/03/24 10:00 10/05/24 09:53 25 MG Trazodone HCl 50 mg HS PO 10/02/24 22:00 10/04/24 21:08 50 MG Pantoprazole Sodium 40 mg DAILY IV 10/03/24 10:00 10/05/24 09:44 40 MG Enteral Nutritional Formula 28.8 gm BIDWM PO 10/05/24 08:00 Furosemide 20 mg BID PO 10/05/24 22:00 UNV Examination General Appearance: Alert, Oriented X3, Cooperative, No acute distress HEENT: Atraumatic, PERRLA, EOMI, Mucous membrane moist/pink Respiratory: Bilateral crepitation improved Cardiovascular: Regular rate, Normal S1, Normal S2, No murmurs, no chest wall tenderness Abdominal: Normal bowel sounds, Soft, No tenderness, No hepatospenomegaly, No masses Extremities: No clubbing, No cyanosis, No edema, Normal pulses, No tenderness/swelling Skin: No rashes, No breakdown, No significant lesion Neuro: Normal gait, Normal speech, Strength at 5/5 X4 ext, Normal tone, Sensation intact, Cranial nerves 3-12 NL, Reflexes 2+ Psych/Mental Status: Mental status NL, Mood NL laboratory and microbiology Laboratory Tests 10/05/24 09:00 Test 10/05/24 09:00 Range/Units Serum Glucose 144 H 74-106 mg/dL Microbiology Date/Time Source Procedure Growth Status 10/01/24 23:58 Nose MRSA Screen - Final Complete 10/01/24 13:26 Blood Blood Culture - Preliminary NO GROWTH AFTER 72 HOURS OF INCUBATION. Resulted Labs and/or images reviewed: Labs reviewed by me, Image(s) reviewed by me Problem List/Assessment/Plan Problem List/Assessment/Plan Hospitalization summary/ Assessment: A 73-year-old female with a history of significant cardiac issues, including a recent ablation, presented to the emergency room with a three-day history of generalized weakness, fatigue, shortness of breath, dyspnea on exertion, periorbital edema, myalgia, and joint pain, with an oxygen saturation of 65% on room air; she denied chest pain, palpitations, diaphoresis, dizziness, or syncopal events, and Unremarkable troponin. Plan: #Acute hypoxic respiratory failure, likely due to pneumonia : Continue IV azithromycin ceftriaxone #Pneumonia likely due to Gram-positive Gram-negative/viral #Sepsis, likely due to pneumonia, resolving #NSTEMI, type 2, likely due to above, Cardiology signed off #atrial fibrillation, status post ablation : Follow up with [facility] with EP, continue amiodarone apixaban and metoprolol # hyponatremia supplemented and monitoring CBC # heart failure with preserved ejection fraction: continue on Lasix / echo 08/15/2024 shows ejection fraction of 60% with left atrial enlargement and concentric LVH # concentric LVH, controlled blood pressure # dyslipidemia on atorvastatin continue # pulmonary embolism ruled out # right hilar lymph adenopathy # subcentimeter mediastinal lymph nodes # [id number] atherosclerotic calcifications of the aorta # interstitial lung disease yet to rule out: At discharge patient needs pulmonology close follow up Diet: cardiac diet GI prophylaxis: protonix 40mg DVT prophylaxis: Eliquis 5 mg b.i.d. Bowel regimen: as needed Barriers to discharge: Medical diagnosis and management in progress. sw on board needs home oxygen arrangement patient lives with at home. PCP: Dr. Quick Specialist Relevant To Admission: Dr. Wheeler, food checker, [facility] EP Patient care and plan discussed with Dr. Zambrano Disposition: Patient remains in telemetry Code status: Full code, planning needed total 37 minutes of detailed discussion. Plan discussed with: Patient, Other (primary team. RN) My Orders My Orders Orders - USMAN HALE RESIDENT Procedure Category Date Status Time Nutritional PHA 10/05/24 In Process Supplements (Seb 08:00 Communication Order ORDERS 10/04/24 Transmitted 18:02 Furosemide Tablet PHA 10/05/24 Logged (Lasix Tablet) 22:00 Potassium Effervesent PHA 10/05/24 Logged Tab (Klor-Con/Ef) 12:15 Dietary Evaluation Review Comments: 1. follow current diet and monitor PO intake to meet 75% of her needs 2. Seb BID for wound healing Expected Outcomes/Goals: healed wounds, maintain weight. USMAN HALE RESIDENT Oct 05, 2024 12:13
[2024-10-05] MEDS: POTASSIUM EFFERVESENT TAB 25 MEQ PO ONE (13:34)
[2024-10-05 14:26] LABS: Base Excess 2.9 mmol/L (-2.0-3.0)
[2024-10-05] MEDS: IOHEXOL 350 MG/ML 100ML IJ ONE (15:47)
--- NOTE | 2024-10-05 16:33 | DVH ---
CLINICAL INFORMATION: 73 years old, Female; rule out PE/ structural changes in lung parencyma. TECHNIQUE: Axial CTA images of the chest were obtained after the uneventful administration of 100 mL of Omnipaque 350 IV contrast. Coronal and sagittal reformatted images and MIP images were obtained, reviewed, and stored. One or more of the following dose reduction techniques were used: Automated exp osure control. Adjustment of mA and/or kV according to patient size. Additional 3D maximum density projection images provided and evaluated. CTDIvol = 17.76 mGy DLP = 513.92 mGy-cm COMPARISON: None FINDINGS: The thyroid gland is unremarkable. No pulmonary embolism. No aortic aneurysm or dissection. Mild moderate atherosclerotic calcification of the aorta. Dilatation of the pulmonary trunk up to 39 mm. Mild cardiomegaly. Right hilar lymphadenopathy. Subcentimeter mediastinal lymph nodes. Diffuse ground-glass opacities of bilateral lungs with areas of consolidation. Small bilateral pleura l effusions with associated atelectasis. No pneumothorax. Partial view of the upper abdomen is unremarkable. Mild soft tissue edema. Multilevel moderate degenerative changes of the thoracic spine. IMPRESSION: Pulmonary embolism. No aortic aneurysm or dissection. Mild cardiomegaly with findings suggestive of pulmonary edema and small bilateral pleural effusions. Underlying pneumonia can not be excluded. Dilatation of the pulmonary trunk up to 39 mm. Correlate for pulmonary arterial hypertension. Right hilar lymphadenopathy with subcentimeter mediastinal lymph nodes which may be reactive with hermelindo plasm not excluded.
[2024-10-05] MEDS: FUROSEMIDE 20 MG TAB PO SCH (21:18)
[2024-10-06] VITALS (9 sets, daily range): BP systolic 100–105; BP diastolic 52–58; PULSE 60–83; RESP 16–19; TEMP 97.7–98.4; O2SAT 93–98
--- NOTE | 2024-10-06 09:34 | DVHINCON2 ---
Date of service: Oct 06, [address] Zambrano Reason for Consultation Hypoxia, pneumonia History of Present Illness 73-year-old woman history of hypertension, status post pacemaker, anxiety, hyperlipidemia, atrial fibrillation who recently had an ablation at [facility] presented with a chief complaint of shortness of breath and joint pain. She denies any chest pain at the time of my evaluation. No cough or phlegm production. No lower extremity swelling. She was noted generalized weakness. She was having difficulty getting out of bed. She initially had an elevated WBC count of 12.4. She was admitted with a diagnosis of pneumonia. She was receiving IV antibiotics. Pulmonary consultation is called due to acute hypoxic respiratory failure and pneumonia. Review of systems: 14 point review of systems is negative unless otherwise noted above. Past medical history: Hypertension, status post pacemaker placement, anxiety, hyperlipidemia, atrial fibrillation status post ablation Past surgical history: Status post ablation, status post pacemaker Medications: Reviewed Allergies: Clindamycin, diphenhydramine, penicillins, TAPE Family history: No family history of premature CAD. No family history of lung disease Social history: Nonsmoker. No alcohol or illicit drug use. Family History: Cardiovascular disease FATHER Colon cancer BROTHER FH: heart attack MOTHER Allergies: Coded Allergies: Diphenhydramine (Verified Allergy, Severe, 11/02/21) Clindamycin (Verified Allergy, Unknown, 11/02/21) Penicillins (Verified Allergy, Unknown, 11/02/21) Uncoded Allergies: TAPE (Allergy, Severe, 05/06/16) Home Meds Reported Medications Gabapentin (Gabapentin) 400 Mg Cap, 2 CAP PO BID for 90 Days, #360 10/02/24 Amiodarone Hcl (Amiodarone Hcl) 200 Mg Tab, 1 TAB PO BID for 90 Days, #180 10/02/24 Sucralfate (Sucralfate) 1 Gm Tab, 1 TAB PO QID for 14 Days, #56 10/02/24 Pantoprazole Sodium Sesquihydr (Pantoprazole Sodium) 40 Mg Tab, 1 TAB PO BID for 30 Days, #60 10/02/24 Buspirone HCl (Buspirone HCl) 10 Mg Tab, 1 TAB PO TID for 90 Days, #270 10/02/24 Roxweejlwew-Cpvoniocaaj-Svo C- (Glucosamine Chondroitin) 1 Cap Cap, 1 CAP PO DAILY, CAP 09/10/24 Magnesium Chloride (Slow-Mag) Tab, 1 OR DAILY, TAB 09/10/24 Apixaban Base (ELIQUIS) 5 Mg Tab, 5 MG PO BID, TAB 09/10/24 Trazodone HCl (Trazodone Hydrochloride) 50 Mg Tab, 50 MG PO DAILY, TAB 09/10/24 Flecainide Acetate (TAMBOCOR TABLET) 50 Mg Tb, 50 MG PO BID, TAB 09/10/24 Furosemide (Furosemide) 40 Mg Tab, 1 TAB PO DAILY for 90 Days, #90 07/01/19 Rosuvastatin Calcium (Crestor) 40 Mg Tab, 40 MG PO DAILY, TAB 07/01/19 Aspirin (Aspir-Low) 81 Mg Tab, 81 MG PO DAILY for 30 Days, MG 04/13/18 Potassium Chloride (Klor-Con 8) 8 Meq Tab, 1 TAB PO DAILY for 90 Days, #90 04/13/18 Timolol Maleate (Ophth) (TIMOPTIC) 0.5 % Jessica, 1 DROP EACHEYE BID, #10 ML 3 Refills 02/10/17 Latanoprost (LATANOPROST) 0.005 % Jessica, 1 DROP EACHEYE QPM, #7.5 ML 3 Refills 10/11/16 Amlodipine Besylate (Amlodipine Besylate) 5 Mg Tab, 10 MG PO DAILY for 30 Days, MG 10/11/16 Discontinued Reported Medications Buspirone Hcl (Buspirone Hcl) 5 Mg Tab, 5 MG PO TID for 30 Days, MG 04/13/18 Clonidine Hcl (CATAPRES TABLET) 0.1 Mg Tb, 0.1 MG PO DAILY 04/13/18 Current Medications Current Medications Medications (Trade) Dose Ordered Sig/Chai Route PRN Reason Start Time Stop Time Status Last Admin Furosemide (Lasix Tablet) 20 mg BID PO 10/05/24 22:00 10/06/24 08:45 DC 10/06/24 08:24 Furosemide (Lasix Tablet) 40 mg BID PO 10/06/24 10:00 UNV Vital Signs Vital Signs Date Time Temp Pulse Resp B/P (MAP) Pulse Ox O2 Delivery O2 Flow Rate FiO2 10/06/24 08:24 105/56 10/06/24 07:18 96 Oxymizer 3 38 38 10/06/24 05:00 97.9 60 19 97.9 Physical Exam Gen.: Patient lying in bed in no apparent distress. On supplemental oxygen. Head: Normocephalic, atraumatic Eyes: EOMI/PERRLA. Ears: Normal hearing. Normal anatomy. Neck/trachea: Trachea midline, supple. Nose: Normal external anatomy. Mouth: Moist mucous membranes. Chest: Decreased air entry bilaterally. No wheezing or rhonchi. Bibasilar crackles. Cardio vascular: Positive S1, positive S2. Regular rate and rhythm. Abdomen: Positive bowel sounds in all 4 quadrants. Soft, non-tender, non- distended. : Deferred. Rectal: Deferred Skin: Warm, dry. Extremities: 2+ radial pulses bilaterally. No lower extremity edema. Neuro: Awake, alert, oriented x3. No gross motor or sensory deficits. Cranial nerves II through XII intact. Gait not assessed. Labs/Diagnostic Data Labs Test 10/05/24 14:19 10/05/24 09:00 10/03/24 04:51 10/02/24 11:45 Range/Units Blood Gas Specimen Type Arterial Blood Gas Sample Site Right radial Blood Gas Patient Temperature 37.0 Arterial Blood Date Drawn [id number] Arterial Blood pH 7.484 H 7.350-7.450 Arterial Blood Partial Pressure CO2 35.6 32.0-45.0 mmHg Arterial Blood Partial Pressure O2 48.9 *L 83.0-108.0 mmHg Arterial Blood HCO3 26.2 21.0-28.0 mmol/L Arterial Blood Oxygen Saturation 84.5 *L 94.0-98.0 % Arterial Blood Base Excess 2.9 -2.0-3.0 mmol/L Arterial Blood Oxyhemoglobin 82.8 L 94.0-98.0 % Arterial Blood Carboxyhemoglobin 1.5 0.5-1.5 % Arterial Blood Methemoglobin 0.5 0.0-1.5 % Adam Test Positive Blood Gas Total Hemoglobin 12.20 12.0-16.0 g/dL Blood Gas Modality Room air FiO2 % 21.0 Blood Gas Comments Blood Gas Critical Value Read Back yes Blood Gas Notified Whom yvon luna md Blood Gas Notified Time [id number] Blood Gas Notified By diana mtz rrt White Blood Count 6.8 4.4-10.8 10^3/uL Red Blood Count 4.25 4.0-5.20 10^6/uL Hemoglobin 12.9 12.2-16.2 g/dL Hematocrit 38.5 # 36.0-46.0 % Mean Corpuscular Volume 90.5 80.0-100.0 fL Mean Corpuscular Hemoglobin 30.3 28.0-32.0 pg Mean Corpuscular Hemoglobin Concent 33.5 32.0-36.0 g/dL Red Cell Distribution Width 13.8 11.8-14.3 % Platelet Count 263 140-450 10^3/uL Mean Platelet Volume 8.5 6.9-10.8 fL Neutrophils (%) (Auto) 80.6 H 37.0-80.0 % Lymphocytes (%) (Auto) 9.4 L 10.0-50.0 % Monocytes (%) (Auto) 7.5 0.0-12.0 % Eosinophils (%) (Auto) 2.3 0.0-7.0 % Basophils (%) (Auto) 0.2 0.0-2.0 % Neutrophils # (Auto) 5.5 1.6-8.6 10 ^3/uL Lymphocytes # (Auto) 0.6 0.4-5.4 10 ^3/uL Monocytes # (Auto) 0.5 0-1.3 10 ^3/uL Eosinophils # (Auto) 0.2 0-0.8 10 ^3/uL Basophils # (Auto) 0 0-0.2 10 ^3/uL Nucleated Red Blood Cells 0.0 % Sodium Level 136 136-145 mmol/L Potassium Level 3.2 L 3.5-5.1 mmol/L Chloride Level 98 98-107 mmol/L Carbon Dioxide Level 32 H 20-31 mmol/L Anion Gap 6 5-15 Blood Urea Nitrogen 15 9-23 mg/dL Creatinine 0.81 0.550-1.02 mg/dL Glomerular Filtration Rate Calc 77 >90 mL/min BUN/Creatinine Ratio 18.5 10.0-20.0 Serum Glucose 144 H 74-106 mg/dL Calcium Level 9.5 8.7-10.4 mg/dL Total Bilirubin 1.2 H 0.2-1.0 mg/dL Aspartate Amino Transferase (AST) 71 H 13-40 U/L Alanine Aminotransferase (ALT) 253 H 7-40 U/L Alkaline Phosphatase 94 46-116 U/L Total Protein 5.9 5.7-8.2 g/dL Albumin 3.7 3.2-4.8 g/dL Troponin I High Sensitivity 39 *H </=34 ng/L Vitamin B12 Level 534 211-911 pg/mL Vitamin D 25-Hydroxy 58.6 30.0-100 ng/mL Magnesium Level 2.0 1.6-2.6 mg/dL B-Type Natriuretic Peptide 322.20 0-100 pg/mL Test 10/02/24 10:57 10/01/24 22:37 10/01/24 16:45 10/01/24 10:57 Range/Units Urine Osmolality 240 mOsm/kg Serum Osmolality 282 278-298 mOsm/kg Influenza Type A Antigen Negative Negative Influenza Type B Antigen Negative Negative SARS-CoV-2 Antigen (Rapid) Negative NEGATIVE Blood Gas Liter Flow 9.00 Urine Color Colorless Yellow Urine Clarity Clear Clear Urine pH 5.0 5.0-9.0 Urine Specific [place] 1.005 1.001-1.035 Urine Protein Negative Negative Urine Ketones Negative Negative Urine Blood Trace H Negative /uL Urine Nitrite Negative Negative Urine Bilirubin Negative Negative Urine Urobilinogen Normal Negative mg/dL Urine Leukocyte Esterase Negative Negative /uL Urine RBC None seen 0 - 4 /hpf Urine WBC <1 0 - 5 /hpf Urine Squamous Epithelial Cells None seen <5 /hpf Urine Bacteria None seen None Seen /hpf Urine Creatinine 13.09 L 30.0-125.0 mg/dL Urine Protein/Creatinine Ratio 1.50 Urine Sodium 61 40-220 mmol/L Urine Glucose Normal Normal mg/dL Urine Total Protein 19.6 H 1-14 mg/dL Test 10/01/24 08:13 Range/Units Phosphorus Level 3.7 2.4-5.1 mg/dL Thyroid Stimulating Hormone (TSH) 2.74 0.55-4.78 uIU/mL Microbiology Date/Time Source Procedure Growth Status 10/01/24 23:58 Nose MRSA Screen - Final Complete 10/01/24 13:26 Blood Blood Culture - Preliminary NO GROWTH AFTER 72 HOURS OF INCUBATION. Resulted Assessment Impression: Acute hypoxic respiratory failure Pleural effusion Atelectasis Ground-glass opacities on imaging Mediastinal lymphadenopathy Right hilar lymphadenopathy Pulmonary hypertension , RVSP 40 mmHg. Plan: Continue supplemental oxygen line keep O2 saturation above 92%. Currently on 3 liters/minute via Oxymizer Incentive spirometry Continue IV antibiotics Cultures no growth after 72 hours. MRSA nares was negative. Recent echocardiogram from August 30, 2024 demonstrated elevation in the right ventricular systolic pressure. Right ventricular systolic pressure was 40 mmHg. Pulmonary hypertension likely Who class two in etiology. Management as per Cardiology. On amiodarone for atrial fibrillation. On Eliquis 5 mg p.o. b.i.d. for atrial fibrillation. Maintain euvolemia Monitor ins and outs. Monitor electrolytes Supplement as necessary. Monitor renal function. Diuresis with Lasix once daily given CHF diastolic and pleural effusions. CT of the chest report and images reviewed. Ground-glass opacities noted bilaterally. Likely pulmonary edema secondary to CHF and cardiac disease. Maintain euvolemia as noted above. Mediastinal lymphadenopathy likely reactive in the setting of recent pneumonia. Recommend repeat CT of the chest in 6-8 weeks if kidney function acceptable versus outpatient PET-CT scan in 6-8 weeks. Nutritional support with Seb. GI prophylaxis with Protonix DVT prophylaxis with Eliquis. Prognosis: Guarded given multiple comorbidities. Rest of plan per hospitalist and other consultants. Thank you Dr. Zambrano for allowing me to participate in this patient's care. Further recommendations will depend on patient's clinical course. Please do not hesitate to contact me if you have any questions or concerns. This medical document was created using an electronic medical record system with [employer] dictation system. Although this document has been carefully reviewed, there may still be some phonetic and typographical errors. These areas are purely typographical due to imperfections of the software programs, and do not reflect any compromise in the patient's medical care. Plan discussed with: Patient, Other (RN, MD) ANTOINETTE BREWER MD Oct 06, 2024 09:34
[2024-10-06] MEDS: FUROSEMIDE 40 MG TAB PO SCH (10:00)
[2024-10-06 10:51] LABS: Albumin 3.5 g/dL (3.2-4.8); Alkaline Phosphatase 94 U/L (46-116); Anion Gap 6 (5-15); Aspartate Aminotransferase 36 U/L (13-40); BUN/Creatinine Ratio 18.5 (10.0-20.0); Blood Urea Nitrogen 15 mg/dL (9-23); Calcium 9.1 mg/dL (8.7-10.4)
[2024-10-06 10:52] LABS: Bilirubin, Total 0.7 mg/dL (0.2-1.0)
[2024-10-06 10:53] LABS: Chloride 96 mmol/L (98-107); Potassium 3.3 mmol/L (3.5-5.1); Sodium 134 mmol/L (136-145)
[2024-10-06 10:54] LABS: Alanine Aminotransferase 166 U/L (7-40); Carbon Dioxide 32 mmol/L (20-31); Glucose 210 mg/dL (74-106); Total Protein 5.5 g/dL (5.7-8.2)
[2024-10-06] MEDS: POTASSIUM EFFERVESENT TAB 25 MEQ PO ONE ×4 (12:00→15:17)
[2024-10-06] MEDS: FUROSEMIDE 20 MG TAB PO ONE (13:00)
[2024-10-06] MEDS: MAGNESIUM SULFATE 1GM/100ML 100 ML IV ONE (13:01)
[2024-10-06] MEDS ORDERED: LEVO750T40 PO (15:30)
--- NOTE | 2024-10-06 15:57 | DVHDSRES ---
Discharge Summary Date of Admission Resident Creating Document: ZI ESPINOSA RESMAEMUKESH Oct 01, 2024 at 11:34 Date of Discharge: Oct 06, 2024 Admitting Diagnosis Acute hypoxic respiratory failure, likely due to pneumonia Wounds: Labs/Diagnostic Data: Laboratory Results Test 10/06/24 10:15 10/05/24 14:19 10/05/24 09:00 10/03/24 04:51 Sodium Level 134 mmol/L (136-145) Potassium Level 3.3 mmol/L (3.5-5.1) Chloride Level 96 mmol/L (98-107) Carbon Dioxide Level 32 mmol/L (20-31) Anion Gap 6 (5-15) Blood Urea Nitrogen 15 mg/dL (9-23) Creatinine 0.81 mg/dL (0.550-1.02) Glomerular Filtration Rate Calc 77 mL/min (>90) BUN/Creatinine Ratio 18.5 (10.0-20.0) Serum Glucose 210 mg/dL (74-106) Calcium Level 9.1 mg/dL (8.7-10.4) Magnesium Level 1.8 mg/dL (1.6-2.6) Total Bilirubin 0.7 mg/dL (0.2-1.0) Aspartate Amino Transferase (AST) 36 U/L (13-40) Alanine Aminotransferase (ALT) 166 U/L (7-40) Alkaline Phosphatase 94 U/L (46-116) Total Protein 5.5 g/dL (5.7-8.2) Albumin 3.5 g/dL (3.2-4.8) Blood Gas Specimen Type Arterial Blood Gas Sample Site Right radial Blood Gas Patient Temperature 37.0 Arterial Blood Date Drawn [id number] Arterial Blood pH 7.484 (7.350-7.450) Arterial Blood Partial Pressure CO2 35.6 mmHg (32.0-45.0) Arterial Blood Partial Pressure O2 48.9 mmHg (83.0-108.0) Arterial Blood HCO3 26.2 mmol/L (21.0-28.0) Arterial Blood Oxygen Saturation 84.5 % (94.0-98.0) Arterial Blood Base Excess 2.9 mmol/L (-2.0-3.0) Arterial Blood Oxyhemoglobin 82.8 % (94.0-98.0) Arterial Blood Carboxyhemoglobin 1.5 % (0.5-1.5) Arterial Blood Methemoglobin 0.5 % (0.0-1.5) Adam Test Positive Blood Gas Total Hemoglobin 12.20 g/dL (12.0-16.0) Blood Gas Modality Room air FiO2 % 21.0 Blood Gas Comments Blood Gas Critical Value Read Back yes Blood Gas Notified Whom yvon hale md Blood Gas Notified Time [id number] Blood Gas Notified By diana mtz rrt White Blood Count 6.8 10^3/uL (4.4-10.8) Red Blood Count 4.25 10^6/uL (4.0-5.20) Hemoglobin 12.9 g/dL (12.2-16.2) Hematocrit 38.5 % (36.0-46.0) Mean Corpuscular Volume 90.5 fL (80.0-100.0) Mean Corpuscular Hemoglobin 30.3 pg (28.0-32.0) Mean Corpuscular Hemoglobin Concent 33.5 g/dL (32.0-36.0) Red Cell Distribution Width 13.8 % (11.8-14.3) Platelet Count 263 10^3/uL (140-450) Mean Platelet Volume 8.5 fL (6.9-10.8) Neutrophils (%) (Auto) 80.6 % (37.0-80.0) Lymphocytes (%) (Auto) 9.4 % (10.0-50.0) Monocytes (%) (Auto) 7.5 % (0.0-12.0) Eosinophils (%) (Auto) 2.3 % (0.0-7.0) Basophils (%) (Auto) 0.2 % (0.0-2.0) Neutrophils # (Auto) 5.5 10 ^3/uL (1.6-8.6) Lymphocytes # (Auto) 0.6 10 ^3/uL (0.4-5.4) Monocytes # (Auto) 0.5 10 ^3/uL (0-1.3) Eosinophils # (Auto) 0.2 10 ^3/uL (0-0.8) Basophils # (Auto) 0 10 ^3/uL (0-0.2) Nucleated Red Blood Cells 0.0 % Troponin I High Sensitivity 39 ng/L (</=34) Vitamin B12 Level 534 pg/mL (211-911) Vitamin D 25-Hydroxy 58.6 ng/mL (30.0-100) Test 10/02/24 11:45 10/02/24 10:57 10/01/24 22:37 10/01/24 16:45 B-Type Natriuretic Peptide 322.20 pg/mL (0-100) Urine Osmolality 240 mOsm/kg Serum Osmolality 282 mOsm/kg (278-298) Influenza Type A Antigen Negative (Negative) Influenza Type B Antigen Negative (Negative) SARS-CoV-2 Antigen (Rapid) Negative (NEGATIVE) Blood Gas Liter Flow 9.00 Test 10/01/24 10:57 10/01/24 08:13 Urine Color Colorless (Yellow) Urine Clarity Clear (Clear) Urine pH 5.0 (5.0-9.0) Urine Specific [place] 1.005 (1.001-1.035) Urine Protein Negative (Negative) Urine Ketones Negative (Negative) Urine Blood Trace /uL (Negative) Urine Nitrite Negative (Negative) Urine Bilirubin Negative (Negative) Urine Urobilinogen Normal mg/dL (Negative) Urine Leukocyte Esterase Negative /uL (Negative) Urine RBC None seen /hpf (0 - 4) Urine WBC <1 /hpf (0 - 5) Urine Squamous Epithelial Cells None seen /hpf (<5) Urine Bacteria None seen /hpf (None Seen) Urine Creatinine 13.09 mg/dL (30.0-125.0) Urine Protein/Creatinine Ratio 1.50 Urine Sodium 61 mmol/L (40-220) Urine Glucose Normal mg/dL (Normal) Urine Total Protein 19.6 mg/dL (1-14) Phosphorus Level 3.7 mg/dL (2.4-5.1) Thyroid Stimulating Hormone (TSH) 2.74 uIU/mL (0.55-4.78) Other Laboratory Tests 10/06/24 10:15 10/05/24 09:00 Brief Hx & Hospital Course: A pleasant 73-year-old female presented to the emergency room with a three-day history of generalized weakness, increased fatigue, shortness of breath, dyspnea on exertion, periorbital edema, myalgia, and joint pain, but denied chest pain, palpitations, diaphoresis, dizziness, or syncopal events. On arrival, her oxygen saturation was 65% on room air. A 12-lead electrocardiogram showed an atrial ventricular paced rhythm with underlying sinus rhythm, and her baseline troponin level was 86 ng/L. She recently underwent cardiac ablation at [facility] on 09/17/2024. Per electrophysiology, she is to reduce amiodarone to 200 mg daily and continue Eliquis 5 mg twice daily, with a follow-up on 10/24/2024. She also has an outpatient appointment with Dr. Wheeler on 10/03/2024 at 0900. Her significant medical history includes intermittent high-degree AV block with a dual-chamber pacemaker (Biotronik) implanted on 08/28/2019, longstanding persistent atrial fibrillation with cardiac ablations in 2022 and 2023, hypertension, diverticulosis, and hemorrhoids. Chest x-ray was showing bilateral diffuse nonhomogeneous infiltration, and the patient was treated on the line of acute hypoxic respiratory failure due to pneumonia. The patient was given injection azithromycin, ceftriaxone and oxygen was given through nasal cannula. Due to fluid overload and acute on chronic diastolic heart failure the patient was diuresed with Lasix. Patient also had NSTEMI type 2 due to sepsis, and treated conservatively. Home medicine including amiodarone, apixaban and metoprolol and medicine for the glaucoma was continued during hospital course. Electrolyte abnormalities including hyponatremia, and hypokalemia was treated. On 10/06, patient clinically and hemodynamically was stable. Patient has no shortness of breaths. Based on ABGs at room air the patient was qualified for home oxygen at 3 liters/minute 24 hours. Discharge plan discussed with the patient and the patient was discharged. Discharge plan: Follow up with the PCP within 1 week after discharge. Follow up with the Cardiology within 1 week after discharge. Use oxygen 3 liters/minute through nasal cannula 24 hour Tablet levofloxacin 750 mg daily for 3 days Continue home medicine Operations or Procedures [place] [id number] Ph: [phone] DIAGNOSTIC IMAGING Diagnostic Imaging Report : [id number] Signed PATIENT: RONNI CAM ACCT: [id number] UNIT: [id number] : 1950 LOC: [facility] AGE / SEX: 73 / F ADM STATUS: ADM IN SERVICE 6900 ORDERING PHYSICIAN: USMAN HALE RESIDENT PROCEDURE(s): CTACH - CT ANGIO CHEST CONTRAST REASON: rule out PE/ structural changes in lung parencyma ORDER NUMBER(s): [id number], ACCESSION NUMBER(s): [id number] CLINICAL INFORMATION: 73 years old, Female; rule out PE/ structural changes in lung parencyma. TECHNIQUE: Axial CTA images of the chest were obtained after the uneventful administration of 100 mL of Omnipaque 350 IV contrast. Coronal and sagittal reformatted images and MIP images were obtained, reviewed, and stored. One or more of the following dose reduction techniques were used: Automated exposure control. Adjustment of mA and/or kV according to patient size. Additional 3D maximum density projection images provided and evaluated. CTDIvol = 17.76 mGy DLP = 513.92 mGy-cm COMPARISON: None FINDINGS: The thyroid gland is unremarkable. No pulmonary embolism. No aortic aneurysm or dissection. Mild moderate atherosclerotic calcification of the aorta. Dilatation of the pulmonary trunk up to 39 mm. Mild cardiomegaly. Right hilar lymphadenopathy. Subcentimeter mediastinal lymph nodes. Diffuse ground-glass opacities of bilateral lungs with areas of consolidation. Small bilateral pleural effusions with associated atelectasis. No pneumothorax. Partial view of the upper abdomen is unremarkable. Mild soft tissue edema. Multilevel moderate degenerative changes of the thoracic spine. IMPRESSION: Pulmonary embolism. No aortic aneurysm or dissection. Mild cardiomegaly with findings suggestive of pulmonary edema and small bilateral pleural effusions. Underlying pneumonia can not be excluded. Dilatation of the pulmonary trunk up to 39 mm. Correlate for pulmonary arterial hypertension. Right hilar lymphadenopathy with subcentimeter mediastinal lymph nodes which may be reactive with neoplasm not excluded. ATED BY: IRIS BLANCHARD DO DICTATED DATE/TIME: 10/05/241630 SIGNED BY: IRIS BLANCHARD DO SIGNED DATE/TIME: 10/05/241630 CC: [place] [id number] Ph: [phone] DIAGNOSTIC IMAGING Diagnostic Imaging Report : [id number] Signed PATIENT: RONNI CAM ACCT: [id number] UNIT: [id number] : 1950 LOC: [facility] ROOM / BED: 0201T / A AGE / SEX: 73 / F ADM STATUS: ADM IN SERVICE 1 ORDERING PHYSICIAN: ZI ESPINOSA PROCEDURE(s): CXR1 - CHEST XRAY 1 VIEW REASON: Pneumonia ORDER NUMBER(s): [id number], ACCESSION NUMBER(s): [id number] EXAM: XY CHEST XRAY 1 VIEW Indication: Pneumonia Technique: Single frontal view of the chest was obtained Comparison: XY CHEST PORTABLE on DOS: 10/02/24, XY CHEST PORTABLE on DOS: 10/01/24 FINDINGS: Lines and Tubes: Cardiac pacemaker projects over left chest wall. Lungs: No focal consolidation. Diffuse interstitial opacities. Pleura: No effusion. No pneumothorax. Cardiomediastinal contours: Cardiomegaly. Bones: No acute osseous abnormality. IMPRESSION: Cardiomegaly with pulmonary edema. ATED BY: ANGELI GAVIRIA MD DICTATED DATE/TIME: 10/04/24 111 SIGNED BY: ANGELI GAVIRIA MD SIGNED DATE/TIME: 10/04/24 111 CC: Condition at Discharge: Good Final Diagnosis/Problems List Acute hypoxic respiratory failure, likely due to pneumonia Pneumonia likely due to Gram-positive Gram-negative/viral Sepsis, likely due to pneumonia NSTEMI, type 2, likely due to above Possible amiodarone induced lung injury/pneumonitis History of atrial fibrillation, status post ablation Grade 1 decubitus ulcers Transaminitis, likely hemodynamically mediated Hyponatremia, monitoring Hyperkalemia Glaucoma, continue latanoprost and timolol Acute on chronic diastolic heart failure , concentric LVH Hyperlipidemia Ruled out pulmonary emboli Right hilar lymphadenopathy Subcentimeter mediastinal lymph node [id number] atherosclerotic calcification of the aorta Possible interstitial lung disease, ground-glass opacity on imaging High-degree AV block status post dual-chamber pacemaker implantation (Biotronik, 2019) Hypertension Pleural effusion Atelectasis Possible pulmonary hypertension, RVSP 40 mmHg Discharge Disposition: Home Discharge Instruct/Medications Diet: Cardiac 2g Na,low cholest Activity: No Restrictions, As Tolerated Follow Up/Referral: Follow up with the PCP within 1 week after discharge. Follow up with the Cardiology within 1 week of the discharge. Medications: Since 750 mg daily for 3 days Continue home meds Discharge Statement: "Patient was advised to return to the ER or call 911 if any headaches, dizziness, shortness of breath, chest pain, abdominal pain, bleeding, fevers, or worsening of medical condition. Patient was counseled about treatment plan, medications, possible side effects, patientverbalized understanding. All questions were answered to the best of my ability. This discharge took greater then 30 minutes in planning, reviewing documentation, counseling the patient, and discussing with other team members." ASSESSMENT ASSESSMENT Assessment Acute hypoxic respiratory failure, likely due to pneumonia ZI ESPINOSA [facility] Oct 06, 2024 15:57
[2024-10-06] MEDS: POTASSIUM CHL 20 Meq TABLET PO ONE (16:09)
[2024-10-06] MEDS ORDERED: POTASSIUM CHL 20 Meq TABLET PO ONE (17:15)
== END 2024-10-06 18:40 | disposition home or self-care (01) | DRG 871 ==
LOC: ER 07:44 → TELE 11:34 → TELE-CENTR 23:35
PROVIDERS: ADMIT Student in an Organized Health Care Education/Training Program; ATTEND Student in an Organized Health Care Education/Training Program
DX: A41.59 Other Gram-negative sepsis (principal); I21.A1 Myocardial infarction type 2; J96.01 Acute respiratory failure with hypoxia; I50.33 Acute on chronic diastolic (congestive) heart failure; J15.69 Pneumonia due to other Gram-negative bacteria; J15.9 Unspecified bacterial pneumonia; J12.9 Viral pneumonia, unspecified; E87.1 Hypo-osmolality and hyponatremia; I48.11 Longstanding persistent atrial fibrillation; S27.392A Other injuries of lung, bilateral, initial encounter; Z20.822 Contact with and (suspected) exposure to COVID-19; E87.6 Hypokalemia; I11.0 Hypertensive heart disease with heart failure; F32.A Depression, unspecified; E78.5 Hyperlipidemia, unspecified; I27.20 Pulmonary hypertension, unspecified; R74.01 Elevation of levels of liver transaminase levels; E87.5 Hyperkalemia; I70.0 Atherosclerosis of aorta; L89.891 Pressure ulcer of other site, stage 1; Z95.0 Presence of cardiac pacemaker; Z88.1 Allergy status to other antibiotic agents; Z88.0 Allergy status to penicillin; Z82.49 Family history of ischemic heart disease and other diseases of the circulatory system; Z80.0 Family history of malignant neoplasm of digestive organs; Z91.048 Other nonmedicinal substance allergy status; X58.XXXA Exposure to other specified factors, initial encounter; Y93.89 Activity, other specified; Y92.89 Other specified places as the place of occurrence of the external cause; Y99.8 Other external cause status
CPT/HCPCS: 36415; 36600; 71045; 71275; 80048; 80053; 81001; 82306; 82570; 82607; 82805; 83735; 83880; 83930; 83935; 84100; 84132; 84156; 84300; 84443; 84484; 85025; 87040; 87081; 87278; 87426; 87804; 93005; 94640; 96365; 96375; 97110; 97116; 97163; 97530; 99291; 99292; G0378; J2470; J3490

== ENCOUNTER → 2024-11-12 | Outpatient (CLI) | payer OTHER ==
[~2024-11-12] MED LIST changes: -BUSP5TAB51 PO; -CLO01T PO; +LEVO750T40 PO
[2024-11-12 09:44] LABS: Urine Bacteria None Seen /hpf (None Seen)
[2024-11-12 10:46] LABS: Basophils # (auto) 0 10 ^3/uL (0-0.2); Basophils % (auto) 0.4 % (0.0-2.0); Eosinophils # (auto) 0.1 10 ^3/uL (0-0.8); Eosinophils % (auto) 1.4 % (0.0-7.0); Hematocrit 36.9 % (36.0-46.0); Hemoglobin 12.2 g/dL (12.2-16.2); Lymphocytes # (auto) 1.1 10 ^3/uL (0.4-5.4); Lymphocytes % (auto) 20.9 % (10.0-50.0); Mean Corpuscular Hemoglobin 30.6 pg (28.0-32.0); Mean Corpuscular Volume 92.6 fL (80.0-100.0); Monocytes # (auto) 0.5 10 ^3/uL (0-1.3); Monocytes % (auto) 9.5 % (0.0-12.0); Neutrophils # (auto) 3.6 10 ^3/uL (1.6-8.6); Neutrophils % (auto) 67.8 % (37.0-80.0); Nucleated Red Blood Cells % 0.1 %; Platelet Count (auto) 228 10^3/uL (140-450); Red Blood Cells 3.99 10^6/uL (4.0-5.20); Red Cell Distribution Width 15.4 % (11.8-14.3); White Blood Cell 5.4 10^3/uL (4.4-10.8)
[2024-11-12 10:49] LABS: Urine Blood TRACE /uL (Negative); Urine Clarity Clear (Clear); Urine Color Light-Yellow (Yellow); Urine Protein, UAD 1+ (Negative); Urine Specific Gravity 1.016 (1.001-1.035); Urine Squamous Epithelial Cell FEW /hpf (<5); Urine Urobilinogen Normal (Negative); Urine WBC < 1 /HPF (0-5); Urine pH 6.5 (5.0-9.0)
[2024-11-12 11:01] LABS: Free T4 (Free Thyroxine) 1.5 ng/dL (0.89-1.76)
[2024-11-12 11:05] LABS: Alanine Aminotransferase 34 U/L (7-40); Albumin 4.2 g/dL (3.2-4.8); Anion Gap 8 (5-15); Aspartate Aminotransferase 29 U/L (13-40); BUN/Creatinine Ratio 17.4 (10.0-20.0); Bilirubin, Total 1.1 mg/dL (0.2-1.0); Blood Urea Nitrogen 16 mg/dL (9-23); Calcium 9.8 mg/dL (8.7-10.4); Carbon Dioxide 26 mmol/L (20-31); Chloride 103 mmol/L (98-107); Potassium 4.4 mmol/L (3.5-5.1); Sodium 137 mmol/L (136-145); Total Protein 6.5 g/dL (5.7-8.2)
[2024-11-12 11:25] LABS: Alkaline Phosphatase 124 U/L (46-116)
[2024-11-12 11:58] LABS: Glucose 92 mg/dL (74-106); Triglycerides 93 mg/dL (< 150)
[2024-11-12 11:59] LABS: LDL Cholesterol 47 mg/dL (< 100)
[2024-11-12 12:00] LABS: Cholesterol 107 mg/dL (< 200); HDL Cholesterol 44 mg/dL (40-59)
== END | disposition home or self-care (01) ==
LOC: LAB 09:21
PROVIDERS: ATTEND Internal Medicine
DX: I12.9 Hypertensive chronic kidney disease with stage 1 through stage 4 chronic kidney disease, or unspecified chronic kidney disease (principal); N18.9 Chronic kidney disease, unspecified; E78.5 Hyperlipidemia, unspecified; R79.89 Other specified abnormal findings of blood chemistry
CPT/HCPCS: 36415; 80053; 80061; 81001; 82306; 82607; 83036; 84439; 84443; 85025

== ENCOUNTER 2025-02-06 08:19 | Inpatient (IN) | payer OTHER ==
[~2025-02-06] VITALS: Ht 160 cm; Wt 62.2 kg
[~2025-02-06 08:19] MED LIST changes: -HYDR-4072 PO; -IBUP-1453 PO
--- NOTE | 2025-02-06 09:08 | DVH ---
PROCEDURE: Left hip radiographs. INDICATION: FALL TECHNIQUE: 3 views of the left hip were obtained. COMPARISON: None FINDINGS: There is no evidence of fracture or dislocation. Left hip joint space narrowing. The soft tissues are unremarkable. IMPRESSION: 1. No fracture or dislocation. 2. Left hip joint space narrowing.
--- NOTE | 2025-02-06 09:19 | ED.PDOC ---
Musculoskeletal HPI Comments A 74 YEAR OLD FEMALE PRESENTS TO THE ED WITH CHIEF COMPLAINT OF LEFT HIP PAIN S/P FALL. PATIENT REPORTS THAT SHE HAD ACCIDENTALLY TRIPPED AND FELL YESTERDAY, FALLING ONTO HER LEFT SIDE. PATIENT RELAYS THAT SINCE THEN SHE HAS HAD BRUISING TO HER CHIN AND LEFT HIP ALONG WITH PAIN TO LEFT HIP WHEN ATTEMPTING TO WALK ON HER OWN. WALKING AND STANDING INCREASES LEFT HIP PAIN. PT STATES SHE IS UNABLE TO WALK ONLY STANDING. PATIENT DENIES ANY HEAD INJURY, LOC, DIZZINESS, NECK PAIN, BACK PAIN, OR CHEST PAIN. NO OTHER SYMPTOMS REPORTED AT THIS TIME OF CARE. Chief Complaint: Fall Injury Time Seen by MD: 08:36 Primary Care Provider: RUTHIE Bui Notes: Nurses Notes, Medications, Allergies Allergies: Coded Allergies: Diphenhydramine (Verified Allergy, Severe, 11/02/21) Clindamycin (Verified Allergy, Unknown, 11/02/21) Penicillins (Verified Allergy, Unknown, 11/02/21) Uncoded Allergies: TAPE (Allergy, Severe, 05/06/16) Home Meds Active Scripts Levofloxacin Hemihydrate (LEVOFLOXACIN) 750 Mg Tab, 1 TAB PO DAILY, #3 TAB 0 Refills Prov:SUKUMAR GATICA MD 10/06/24 Reported Medications Gabapentin (Gabapentin) 400 Mg Cap, 2 CAP PO BID for 90 Days, #360 10/02/24 Amiodarone Hcl (Amiodarone Hcl) 200 Mg Tab, 1 TAB PO BID for 90 Days, #180 10/02/24 Sucralfate (Sucralfate) 1 Gm Tab, 1 TAB PO QID for 14 Days, #56 10/02/24 Pantoprazole Sodium Sesquihydr (Pantoprazole Sodium) 40 Mg Tab, 1 TAB PO BID for 30 Days, #60 10/02/24 Buspirone HCl (Buspirone HCl) 10 Mg Tab, 1 TAB PO TID for 90 Days, #270 10/02/24 Jzoddfjhjvf-Ixqakllzzih-Cje C- (Glucosamine Chondroitin) 1 Cap Cap, 1 CAP PO DAILY, CAP 09/10/24 Magnesium Chloride (Slow-Mag) Tab, 1 OR DAILY, TAB 09/10/24 Apixaban Base (ELIQUIS) 5 Mg Tab, 5 MG PO BID, TAB 09/10/24 Trazodone HCl (Trazodone Hydrochloride) 50 Mg Tab, 50 MG PO DAILY, TAB 09/10/24 Flecainide Acetate (TAMBOCOR TABLET) 50 Mg Tb, 50 MG PO BID, TAB 09/10/24 Furosemide (Furosemide) 40 Mg Tab, 1 TAB PO DAILY for 90 Days, #90 07/01/19 Rosuvastatin Calcium (Crestor) 40 Mg Tab, 40 MG PO DAILY, TAB 07/01/19 Aspirin (Aspir-Low) 81 Mg Tab, 81 MG PO DAILY for 30 Days, MG 04/13/18 Potassium Chloride (Klor-Con 8) 8 Meq Tab, 1 TAB PO DAILY for 90 Days, #90 04/13/18 Timolol Maleate (Ophth) (TIMOPTIC) 0.5 % Jessica, 1 DROP EACHEYE BID, #10 ML 3 Re fills 02/10/17 Latanoprost (LATANOPROST) 0.005 % Jessica, 1 DROP EACHEYE QPM, #7.5 ML 3 Refills 10/11/16 Amlodipine Besylate (Amlodipine Besylate) 5 Mg Tab, 10 MG PO DAILY for 30 Days, MG 10/11/16 Information Source: Patient Mode of Arrival: Ambulatory Location: Left Extremity Location: Hip Timing: Hours Prehospital treatment: None Severity: Moderate Able to Move Extremity: Yes Bear Weight: Limited Pain: Moderate Mechanism: Blunt Trauma Circumstances: Fall Onset of Symptoms: After Trauma Symptoms: Pain DVT Risk Factors: NONE Last Tetanus: UTD Associated signs and symptoms: Hip pain Past Medical History PAST MEDICAL HISTORY: Anxiety, High Lipids, HTN Surgical History: BTL, Pacemaker OUTSIDE MACHINIST 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: No Pertinent 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 MACHINIST History Family History Family History: Unobtainable Social History Smoker: Non-Smoker Alcohol: Occasionally Drugs: Denies Drug Use Lives In: Home Constitutional: denies: chills, diaphoresis, fatigue, fever, malaise, sweats, weakness, others EENTM: denies: blurred vision, double vision, ear bleeding, ear discharge, ear drainage, ear pain, ear ringing, eye pain, eye redness, hearing loss, mouth pain, mouth swelling, nasal discharge, nose bleeding, nose congestion, nose pain, photophobia, tearing, throat pain, throat swelling, voice changes, others Respiratory: denies: cough, hemoptysis, orthopnea, SOB at rest, shortness of breath, SOB with excertion, stridor, wheezing, others Cardiovascular: denies: chest pain, dizzy spells, diaphoresis, Dyspnea on exertion, edema, irregular heart beat, left arm pain, lightheadedness, palpitations, PND, syncope, others Gastrointestinal: denies: abdomen distended, abdominal pain, blood streaked bowels, constipated, diarrhea, dysphagia, difficulty swallowing, hematemesis, melena, nausea, poor appetite, poor fluid intake, rectal bleeding, rectal pain, vomiting, others Genitourinary: denies: abnormal vagina bleeding, burning, dyspareunia, dysuria, flank pain, frequency, hematuria, incontinence, pain, , vagina discharge, urgency, others Neurological: denies: dizziness, fainting, headache, left sided numbness, left sided weakness, numbness, paresthesia, pre-existing deficit, right sided numbness, right sided weakness, seizure, speech problems, tingling, tremors, weakness, others Musculoskeletal: reports: joint pain, joint swelling, muscle pain, others (LEFT HIP PAIN); denies: back pain, gout, muscle stiffness, neck pain Integumetry: reports: bruises; denies: change in color, change in hair/nails, dryness, laceration, lesions, lumps, rash, wounds, others Allergic/Immunocompromised: denies: Difficulty Healing, Frequent Infections, Hives, Itching, others Hematologic/Lymphatic: denies: anemia, blood clots, easy bleeding, easy bruising, swollen glands, others Endocrine: denies: excessive hunger, excessive sweating, excessive thirst, excessive urination, flushing, intolerance to cold, intolerance to heat, unexplained weight gain, unexplained weight loss, others Psychiatric: denies: anxiety, bipolar disorder, depression, hopeless, panic disorder, schizophrenia, sleepless, suicidal, others All Other Systems: Reviewed and Negative Physical Exam General Appearance: No Apparent Distress, Normal HEENT: Normal ENT Inspection, PERRL/EOMI, Pharynx Normal, TMs Normal, Other (TENDERNESS WITH CONTUSION ON LEFT CHIN, NO BONY TENDERNESS AND DEFORMITY. ) Neck: Full Range of Motion, Non-Tender, Normal, Normal Inspection Respiratory: Chest Non-Tender, Lungs Clear, No Accessory Muscle Use, No Respiratory Distress, Normal Breath Sounds Cardiovascular: No Edema, No JVD, No Murmur, No Gallop, Normal Peripheral Pulses, Regular Rate/Rhythm Breast Exam: Deferred Gastrointestinal: No Organomegaly, Non Tender, No Pulsatile Mass, Normal Bowel Sounds, Soft Genitalia: Deferred Pelvic: Deferred Rectal: Deferred Extremities: Decreased range of motion, No calf tenderness, Normal capillary refill, No pedal edema, Swelling (BONY TENDERNESS AND SWELLING ON LEFT POSTERIOR BUTTOCK, NO DEFORMITY. ), Tender (AND LARGE CONTUSION ON LEFT POSTERIOR HIP. NO BONY TENDERNESS AND SWELLING ON LEFT ANTERIOR HIP. 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 ), Dry, Normal Color, Warm Peripheral Pulses: 2+ carotid (R), 2+ carotid (L), 2+ dorsalis pedis (R), 2+ dorsalis pedis (L) Lymphatic: No Adenopathy Was a procedure done? Was a procedure done?: No Differential Diagnosis EXT Differential Diagnosis: Fracture, Sprain, Dislocation, Contusion, Strain X-Ray, Labs, Meds, VS Vital Signs Date Time Temp Pulse Resp B/P (MAP) Pulse Ox O2 Delivery O2 Flow Rate FiO2 02/06/25 09:47 65 16 98 Room Air 02/06/25 09:47 98.2 65 16 127/78 (94) 98 98.2 02/06/25 08:31 98.3 60 16 125/77 (93) 95 98.3 Lab Test 02/06/25 10:26 Range/Units White Blood Count 7.3 4.4-10.8 10^3/uL Red Blood Count 4.60 4.0-5.20 10^6/uL Hemoglobin 13.1 12.2-16.2 g/dL Hematocrit 38.9 36.0-46.0 % Mean Corpuscular Volume 84.6 80.0-100.0 fL Mean Corpuscular Hemoglobin 28.5 28.0-32.0 pg Mean Corpuscular Hemoglobin Concent 33.7 32.0-36.0 g/dL Red Cell Distribution Width 15.7 H 11.8-14.3 % Platelet Count 166 140-450 10^3/uL Mean Platelet Volume 7.9 6.9-10.8 fL Neutrophils (%) (Auto) 71.3 37.0-80.0 % Lymphocytes (%) (Auto) 15.5 10.0-50.0 % Monocytes (%) (Auto) 11.9 0.0-12.0 % Eosinophils (%) (Auto) 0.8 0.0-7.0 % Basophils (%) (Auto) 0.5 0.0-2.0 % Neutrophils # (Auto) 5.2 1.6-8.6 10 ^3/uL Lymphocytes # (Auto) 1.1 0.4-5.4 10 ^3/uL Monocytes # (Auto) 0.9 0-1.3 10 ^3/uL Eosinophils # (Auto) 0.1 0-0.8 10 ^3/uL Basophils # (Auto) 0 0-0.2 10 ^3/uL Nucleated Red Blood Cells 0.0 % Prothrombin Time 11.4 9.3-11.8 sec Prothrombin Time INR 1.08 0.9-1.15 Sodium Level 141 136-145 mmol/L Potassium Level 3.5 3.5-5.1 mmol/L Chloride Level 104 98-107 mmol/L Carbon Dioxide Level 30 20-31 mmol/L Anion Gap 7 5-15 Blood Urea Nitrogen 17 9-23 mg/dL Creatinine 0.76 0.550-1.02 mg/dL Glomerular Filtration Rate Calc 82 >90 mL/min BUN/Creatinine Ratio 22.4 H 10.0-20.0 Serum Glucose 104 74-106 mg/dL Calcium Level 10.2 8.7-10.4 mg/dL Current Medications Medications (Trade) Dose Ordered Sig/Chai Route Start Time Stop Time Status Last Admin Acetaminophen/ Hydrocodone Bitart (Christine 5/325MG Tab) 1 tab ONCE ONCE PO 02/06/25 10:15 02/06/25 10:18 DC 02/06/25 10:22 LT HIP XR: FINDINGS: There is no evidence of fracture or dislocation. Left hip joint space narrowing. The soft tissues are unremarkable. IMPRESSION: 1. No fracture or dislocation. 2. Left hip joint space narrowing. LEFT HIP: FINDINGS: Acute nondisplaced fractures of the left inferior and superior pubic rami. Left hip joint space narrowing is present. There is soft tissue swelling in the left hip with a high density collection in the subcutaneous tissues that measures 2.9 by 2.6 by 7.3 cm consistent with a hematoma. IMPRESSION: 1. Acute nondisplaced fractures of the left inferior and superior pubic rami. 2. Subcutaneous hematoma in the left hip measuring 7.3 cm in maximum craniocaudal dimension. All CT scans at this medical facility are performed using dose modulation techniques as appropriate to a performed exam including the following: Automated exposure control was utilized; adjustment of the MA and/or KV according to patient size; and use of iterative reconstruction technique. X-Ray, Labs, Meds, VS Comment EXTERNAL MEDICAL RECORDS REVIEWED: [NONE] INDEPENDENT HISTORIANS: [NONE] SOCIAL DETERMINANTS OF HEALTH: [NONE] LABS ORDERED: CBC, BMP, UA, PTPTT REVIEWED AND INTERPRETED RESULTS: LT HIP XR, CT LT HIP IMAGING ORDERED: LT HIP XR, CT LT HIP TREATMENTS ORDERED: NORCO 5/325MG PO PROCEDURES PERFORMED: NONE CRITICAL CARE TIME: NONE I HAVE DISCUSSED THE PATIENT WITH THE ATTENDING PHYSICIAN DR. HENRY AND HE AGREES WITH THE PATIENT'S PLAN OF CARE AND DISPOSITION. SPOKE WITH PATIENT REGARDING HER RESULTS AND SHE STATES SHE IS UNABLE TO BE SENT HOME SHE HAS NO ONE TO TAKE CARE OF HER AND IS UNABLE TO WALK ON HER OWN. WILL PUT PATIENT UP FOR ADMISSION FOR PAIN MANAGEMENT AND FURTHER CARE. Time of 1ST Reevaluation: 09:00 Reevaluation 1ST: Unchanged Time of 2ND Reevaluation: 11:00 Patient Education/Counseling: Diagnosis, Treatment Family Education/Counseling: Diagnosis, Treatment, No Family Present Departure 1 Departure Time of Disposition: 11:00 Impression: Primary Impression: Fracture of left inferior pubic ramus Qualified Codes: S32.592A - Other specified fracture of left pubis, initial encounter for closed fracture Additional Impressions: Fracture of left superior pubic ramus Qualified Codes: S32.512A - Fracture of superior rim of left pubis, initial encounter for closed fracture Intractable pain Disposition: ADMITTED INPATIENT Admit to: Med Surg Condition: Serious Critical Care Note Critical Care Time?: No Stability Stability form required: Yes Unstable for transfer: Requires medication, ED Physician Assesment, Possible rapid decline Heart Score Heart Score: Heart Score Response (Comments) Value History N/A 0 EKG N/A 0 Age N/A 0 Risk Factors N/A 0 Troponin N/A 0 Total 0 I personally scribed for AJ MICHEL ([email or web address]) on 02/06/25 at 09:19. Electronically submitted by Nilesh Sheldon ([email or web address]). I personally scribed for AJ MICHEL ([email or web address]) on 02/06/25 at 09:26. Electronically submitted by Nilesh Sheldon ([email or web address]). I personally scribed for AJ MICHEL ([email or web address]) on 02/06/25 at 10:02. Electronically submitted by Nilesh Sheldon ([email or web address]). I personally scribed for AJ MICHEL ([email or web address]) on 02/06/25 at 10:17. Electronically submitted by Nilesh Sheldon ([email or web address]). AJ MICHEL February 06, 2025 09:19
--- NOTE | 2025-02-06 09:58 | DVH ---
CLINICAL INDICATION: 74 years old, Female; FALL. TECHNIQUE: Noncontrast CT of the left hip was performed. Sagittal and coronal reformatted images are provided. COMPARISON: None CT Dose: CTDI volume is 13.95 mGy. Dose-length product is 367.17 mGy*cm FINDINGS: Acute nondisplaced fractures of the left inferior and superior pubic rami. Left hip joint s pace narrowing is present. There is soft tissue swelling in the left hip with a high density collect ion in the subcutaneous tissues that measures 2.9 by 2.6 by 7.3 cm consistent with a hematoma. IMPRESSION: 1. Acute nondisplaced fractures of the left inferior and superior pubic rami. 2. Subcutaneous hematoma in the left hip measuring 7.3 cm in maximum craniocaudal dimension. All CT scans at this medical facility are performed using dose modulation techniques as appropriate t o a performed exam including the following: Automated exposure control was utilized; adjustment of th e MA and/or KV according to patient size; and use of iterative reconstruction technique.
[2025-02-06] MEDS: HYDROcodone-ACET 5/325MG TAB PO ONE (10:22)
[2025-02-06 10:39] LABS: Basophils # (auto) 0 10 ^3/uL (0-0.2); Basophils % (auto) 0.5 % (0.0-2.0); Eosinophils # (auto) 0.1 10 ^3/uL (0-0.8); Eosinophils % (auto) 0.8 % (0.0-7.0); Hematocrit 38.9 % (36.0-46.0); Hemoglobin 13.1 g/dL (12.2-16.2); Lymphocytes # (auto) 1.1 10 ^3/uL (0.4-5.4); Lymphocytes % (auto) 15.5 % (10.0-50.0); Mean Corpuscular Hemoglobin 28.5 pg (28.0-32.0); Mean Corpuscular Hgb Conc. 33.7 g/dL (32.0-36.0); Mean Corpuscular Volume 84.6 fL (80.0-100.0); Monocytes # (auto) 0.9 10 ^3/uL (0-1.3); Monocytes % (auto) 11.9 % (0.0-12.0); Neutrophils # (auto) 5.2 10 ^3/uL (1.6-8.6); Neutrophils % (auto) 71.3 % (37.0-80.0); Platelet Count (auto) 166 10^3/uL (140-450); Red Cell Distribution Width 15.7 % (11.8-14.3); White Blood Cell 7.3 10^3/uL (4.4-10.8)
[2025-02-06 10:50] LABS: Chloride 104 mmol/L (98-107); Sodium 141 mmol/L (136-145)
[2025-02-06 10:51] LABS: Anion Gap 7 (5-15); Calcium 10.2 mg/dL (8.7-10.4); Carbon Dioxide 30 mmol/L (20-31)
[2025-02-06 10:53] LABS: Potassium 3.5 mmol/L (3.5-5.1)
[2025-02-06 10:56] LABS: BUN/Creatinine Ratio 22.4 (10.0-20.0); Blood Urea Nitrogen 17 mg/dL (9-23); Glucose 104 mg/dL (74-106)
[2025-02-06 10:57] LABS: INR 1.08 (0.9-1.15); Prothrombin Time 11.4 sec (9.3-11.8)
--- NOTE | 2025-02-06 13:43 | DVHHP2 ---
History of Present Illness Reason for Visit: Left hip pain Status post mechanical fall History of Present Illness Meghan Blood is a 74-year-old female with past medical history of hypertension, hyperlipidemia, anxiety, depression, AFib status post ablation at [place] on September 17, 2024, colonoscopy, bilateral tubal ligation, and pacemaker who presents to the ED with left hip pain status post fall at [facility]. Patient reports that she was going in between some shopping carts tripped and fell over 1 of the bumps that were in place to hold the shopping carts from moving, when she landed on her chin and left hip. Patient reports that she is taking blood thinners as well. Patient states that the pain is localized to the left hip. Upon examination left chin is also bruised. Patient endorses pain when trying to get up and walk. Patient denies any chest pain, shortness of breath, fever, chills, lightheadedness, weakness, dizziness, recent sick contact s, recent travels, abdominal pain, nausea, vomiting, or diarrhea. Cardiovascular: AFIB, HTN, hyperipidemia Psych: Anxiety, Depression Past Surgical History: Other (Ablation, pacemaker, and colonoscopy), Tubal Ligation Family History: Hypertension, Other (Mom with ME and dad with AFib, pacemaker, and hypertension) Smoke: No ALCOHOL: occassional Drugs: None Lives: with Family Domestic Violence: Neg Review of Systems Musculoskeletal: other (Left hip pain) Allergies: Coded Allergies: Diphenhydramine (Verified Allergy, Severe, 11/02/21) Clindamycin (Verified Allergy, Unknown, 11/02/21) Penicillins (Verified Allergy, Unknown, 11/02/21) Uncoded Allergies: TAPE (Allergy, Severe, 05/06/16) Exam Vital Signs Vital Signs Date Time Temp Pulse Resp B/P (MAP) Pulse Ox O2 Delivery O2 Flow Rate FiO2 02/06/25 09:47 65 16 98 Room Air 02/06/25 09:47 98.2 127/78 (94) 98.2 General Appearance: Alert, Oriented X3, Cooperative, No acute distress HEENT: Atraumatic, PERRLA, EOMI, Mucous membr. moist/pink Respiratory: Clear to auscultation, Normal air movement Cardiovascular: Normal S1, Normal S2, No murmurs Abdominal: Normal bowel sounds, Soft Extremities: No clubbing, No cyanosis, Normal pulses Neuro: Normal speech, Normal tone, Sensation intact Psych/Mental Status: Mental status NL, Mood NL Labs/Xrays Labs Test 02/06/25 10:26 Range/Units White Blood Count 7.3 4.4-10.8 10^3/uL Red Blood Count 4.60 4.0-5.20 10^6/uL Hemoglobin 13.1 12.2-16.2 g/dL Hematocrit 38.9 36.0-46.0 % Mean Corpuscular Volume 84.6 80.0-100.0 fL Mean Corpuscular Hemoglobin 28.5 28.0-32.0 pg Mean Corpuscular Hemoglobin Concent 33.7 32.0-36.0 g/dL Red Cell Distribution Width 15.7 H 11.8-14.3 % Platelet Count 166 140-450 10^3/uL Mean Platelet Volume 7.9 6.9-10.8 fL Neutrophils (%) (Auto) 71.3 37.0-80.0 % Lymphocytes (%) (Auto) 15.5 10.0-50.0 % Monocytes (%) (Auto) 11.9 0.0-12.0 % Eosinophils (%) (Auto) 0.8 0.0-7.0 % Basophils (%) (Auto) 0.5 0.0-2.0 % Neutrophils # (Auto) 5.2 1.6-8.6 10 ^3/uL Lymphocytes # (Auto) 1.1 0.4-5.4 10 ^3/uL Monocytes # (Auto) 0.9 0-1.3 10 ^3/uL Eosinophils # (Auto) 0.1 0-0.8 10 ^3/uL Basophils # (Auto) 0 0-0.2 10 ^3/uL Nucleated Red Blood Cells 0.0 % Prothrombin Time 11.4 9.3-11.8 sec Prothrombin Time INR 1.08 0.9-1.15 Sodium Level 141 136-145 mmol/L Potassium Level 3.5 3.5-5.1 mmol/L Chloride Level 104 98-107 mmol/L Carbon Dioxide Level 30 20-31 mmol/L Anion Gap 7 5-15 Blood Urea Nitrogen 17 9-23 mg/dL Creatinine 0.76 0.550-1.02 mg/dL Glomerular Filtration Rate Calc 82 >90 mL/min BUN/Creatinine Ratio 22.4 H 10.0-20.0 Serum Glucose 104 74-106 mg/dL Calcium Level 10.2 8.7-10.4 mg/dL CLINICAL INDICATION: 74 years old, Female; FALL. TECHNIQUE: Noncontrast CT of the left hip was performed. Sagittal and coronal reformatted images are provided. COMPARISON: None CT Dose: CTDI volume is 13.95 mGy. Dose-length product is 367.17 mGy*cm FINDINGS: Acute nondisplaced fractures of the left inferior and superior pubic rami. Left hip joint space narrowing is present. There is soft tissue swelling in the left hip with a high density collection in the subcutaneous tissues that measures 2.9 by 2.6 by 7.3 cm consistent with a hematoma. IMPRESSION: 1. Acute nondisplaced fractures of the left inferior and superior pubic rami. 2. 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 PROCEDURE: Left hip radiographs. INDICATION: FALL TECHNIQUE: 3 views of the left hip were obtained. COMPARISON: None FINDINGS: There is no evidence of fracture or dislocation. Left hip joint space narrowing. The soft tissues are unremarkable. IMPRESSION: 1. No fracture or dislocation. 2. Left hip joint space narrowing. Assessment/Plan Assessment/Plan Assessment Left hip pain status post mechanical fall likely due to acute nondisplaced frac tures of the left inferior and superior pubic rami Subcutaneous hematoma in the left hip status post fall History of hypertension History of hyperlipidemia Alcohol use History of AFib status post ablation at [place] on September 17, 2024 History of anxiety History of depression History of pacemaker placement History of colonoscopy History of bilateral tubal ligation Plan Admit to med surge Antiemetics Pain management PT/INR ordered by ED UA pending CT left hip X-ray left hip IV fluids NPO Home medications reconciled DVT prophylaxis-Eliquis, continue home medication PUD prophylaxis-PPIs Discussed plan of care with patient and nurse Counseled patient on cessation of alcohol use Ortho consult Outpatient DEXA scan Plan discussed with: Patient My Orders Orders - MICHA MORA Procedure Category Date Status Time Admit ADMIT 02/06/25 Verified 13:34 Allergies ANGELA 02/06/25 Verified 13:34 Code Status CODE 02/06/25 Verified 13:34 Hydrocodone-Acet PHA 02/06/25 Verified 5/325mg Tab ([place] 13:45 Ondansetron Hcl PHA 02/06/25 Verified (Zofran) 13:45 Enoxaparin Sodium PHA 02/07/25 Verified (Lovenox) 10:00 Complete Blood Count LAB 02/07/25 Verified 04:00 Date of Service: February 06, 2025 Billing Provider: MICHA MORA Common Visit Codes: [id number] INP/OBS CARE (HIGH) MICHA MORA February 06, 2025 13:42
[2025-02-06] MEDS ORDERED: MORPHINE SULFATE INJ 2 MG/ml SYRG IV PRN ×2 (13:45)
[2025-02-06] MEDS ORDERED: NITROGLYCERIN 0.4 MG SL TAB SL PRN (13:45)
[2025-02-06] MEDS ORDERED: ACETAMINOPHEN 325 MG TAB PO PRN (13:45)
[2025-02-06] MEDS ORDERED: ONDANSETRON HCL 4 MG/2 ML VIAL IV PRN (13:45)
[2025-02-06 14:52] LABS: Urine Bacteria None Seen /hpf (None Seen)
[2025-02-06 15:07] LABS: Urine Blood Negative /uL (Negative); Urine Clarity Clear (Clear); Urine Color Colorless (Yellow); Urine Protein, UAD Negative (Negative); Urine Specific Gravity 1.005 (1.001-1.035); Urine Squamous Epithelial Cell None Seen /hpf (<5); Urine Urobilinogen Normal (Negative); Urine WBC < 1 /HPF (0-5); Urine pH 5.5 (5.0-9.0)
--- NOTE | 2025-02-06 16:58 | DVHINCON2 ---
Date of service: February 06, 2025 Reason for Consultation Left superior and inferior pubic rami fracture History of Present Illness Mrs. Blood is a 74-year-old female who was brought to the hospital after experiencing a trip and fall yesterday while shopping. Patient reports that she was at [employer] walking in the parking lot and was walking through a cart drop off area and tripped over a bump causing her to fall and land on her left hip and has been experiencing pain and difficulty bearing weight on that side since the fall. Patient denied any head trauma, loss of consciousness, chest pain, shortness of breath, nausea, vomiting, fever, or chills. Patient also reports that she was able to ambulate well without assistance before this most recent incident. Past Medical History hypertension, hyperlipidemia, anxiety, depression Past Surgical History AFib status post ablation at [place] on September 17, 2024, colonoscopy, bilateral tubal ligation, and pacemaker Family History: Cardiovascular disease FATHER Colon cancer BROTHER FH: heart attack MOTHER Family History Noncontributory Social History Patient admits to occasional alcohol use but denied smoking or any other illicit substance abuse Allergies: Coded Allergies: Diphenhydramine (Verified Allergy, Severe, 11/02/21) Clindamycin (Verified Allergy, Unknown, 11/02/21) Penicillins (Verified Allergy, Unknown, 11/02/21) Uncoded Allergies: TAPE (Allergy, Severe, 05/06/16) Home Meds Active Scripts Levofloxacin Hemihydrate (LEVOFLOXACIN) 750 Mg Tab, 1 TAB PO DAILY, #3 TAB 0 Refills Prov:SUKUMAR GATICA MD 10/06/24 Reported Medications Gabapentin (Gabapentin) 400 Mg Cap, 2 CAP PO BID for 90 Days, #360 10/02/24 Amiodarone Hcl (Amiodarone Hcl) 200 Mg Tab, 1 TAB PO BID for 90 Days, #180 10/02/24 Sucralfate (Sucralfate) 1 Gm Tab, 1 TAB PO QID for 14 Days, #56 10/02/24 Pantoprazole Sodium Sesquihydr (Pantoprazole Sodium) 40 Mg Tab, 1 TAB PO BID for 30 Days, #60 10/02/24 Buspirone HCl (Buspirone HCl) 10 Mg Tab, 1 TAB PO TID for 90 Days, #270 10/02/24 Nhyatsblyyv-Ynuaxdhlkwt-Omx C- (Glucosamine Chondroitin) 1 Cap Cap, 1 CAP PO DAILY, CAP 09/10/24 Magnesium Chloride (Slow-Mag) Tab, 1 OR DAILY, TAB 09/10/24 Apixaban Base (ELIQUIS) 5 Mg Tab, 5 MG PO BID, TAB 09/10/24 Trazodone HCl (Trazodone Hydrochloride) 50 Mg Tab, 50 MG PO DAILY, TAB 09/10/24 Flecainide Acetate (TAMBOCOR TABLET) 50 Mg Tb, 50 MG PO BID, TAB 09/10/24 Furosemide (Furosemide) 40 Mg Tab, 1 TAB PO DAILY for 90 Days, #90 07/01/19 Rosuvastatin Calcium (Crestor) 40 Mg Tab, 40 MG PO DAILY, TAB 07/01/19 Aspirin (Aspir-Low) 81 Mg Tab, 81 MG PO DAILY for 30 Days, MG 04/13/18 Potassium Chloride (Klor-Con 8) 8 Meq Tab, 1 TAB PO DAILY for 90 Days, #90 04/13/18 Timolol Maleate (Ophth) (TIMOPTIC) 0.5 % Jessica, 1 DROP EACHEYE BID, #10 ML 3 Refills 02/10/17 Latanoprost (LATANOPROST) 0.005 % Jessica, 1 DROP EACHEYE QPM, #7.5 ML 3 Refills 10/11/16 Amlodipine Besylate (Amlodipine Besylate) 5 Mg Tab, 10 MG PO DAILY for 30 Days, MG 10/11/16 Current Medications Current Medications Medications (Trade) Dose Ordered Sig/Chai Route PRN Reason Start Time Stop Time Status Last Admin Acetaminophen/ Hydrocodone Bitart (Bern 5/325MG Tab) 1 tab Q4HP PRN PO MODERATE PAIN (4-6 PAIN SCALE) 02/06/25 13:45 Ondansetron HCl (Zofran) 4 mg Q4HP PRN IV NAUSEA / VOMITING 02/06/25 13:45 Enoxaparin Sodium (Lovenox) 40 mg DAILY SC 02/07/25 10:00 02/06/25 15:09 DC Acetaminophen (Tylenol Tablet) 650 mg Q6HP PRN PO PAIN SCALE 1-3 OR TEMP>100.4 02/06/25 13:45 Morphine Sulfate 2 mg Q4HPRN PRN IV SEVERE PAIN (7-10 PAIN SCALE) 02/06/25 13:45 Nitroglycerin (Ntrostat Sublingual) 0.4 mg Q5MINP PRN SL FOR CHEST PAIN 02/06/25 13:45 Morphine Sulfate 2 mg Q30M PRN IV FOR CHEST PAIN 02/06/25 13:45 Sodium Chloride 1,000 ml @ 75 mls/hr [id number] IV 02/06/25 14:00 Amiodarone HCl (Cordarone Tablet) 200 mg BID PO 02/06/25 22:00 Amlodipine Besylate (Norvasc Tablet) 10 mg DAILY PO 02/07/25 10:00 Apixaban (Eliquis) 5 mg BID PO 02/06/25 22:00 Aspirin (Ecotrin Enteric Coated Tablet) 81 mg DAILY PO 02/07/25 10:00 Buspirone HCl (Buspar Tablet) 10 mg TID PO 02/06/25 22:00 Flecainide Acetate (Tambocor Tablet) 50 mg BID PO 02/06/25 22:00 02/06/25 15:48 DC Furosemide (Lasix Tablet) 40 mg DAILY PO 02/07/25 10:00 Gabapentin (Neurontin Capsule) 400 mg BID PO 02/06/25 22:00 Latanoprost (Xalatan) 1 drop HS EACHEYE 02/06/25 22:00 Pantoprazole Sodium (Protonix Tablet) 40 mg BID PO 02/06/25 22:00 Potassium Chloride (Klor-Con Tablet) 8 meq DAILY PO 02/06/25 15:43 Sucralfate (Carafate Tab) 1 gm ACHS PO 02/06/25 17:00 Timolol Maleate (Timoptic 0.5%) 1 drop BID EACHEYE 02/06/25 22:00 Trazodone HCl (Desyrel) 50 mg HS PO 02/06/25 22:00 Patient Own Medication 40 mg DAILY PO 02/07/25 10:00 Review of Systems 10 point review of systems negative except as per HPI Vital Signs Vital Signs Date Time Temp Pulse Resp B/P (MAP) Pulse Ox O2 Delivery O2 Flow Rate FiO2 02/06/25 13:00 55 17 103/61 (75) 93 02/06/25 09:47 Room Air 02/06/25 09:47 98.2 98.2 Physical Exam General appearance: A&O x4 in no acute distress HEENT: Normal ENT inspection, pharynx normal, TMs normal Neck: Full range of motion, nontender, normal inspection Respiratory: Chest nontender, without accessory muscle use, no respiratory distress Cardiovascular: No edema, no JVD, normal peripheral pulses Gastrointestinal: Soft, nontender, no organomegaly. Musculoskeletal: Left hip range of motion grossly limited with pain on slight movement, no calf tenderness, normal capillary refill, no pedal edema, neurovascularly intact. Skin: Dry, normal color, warm Lymphatic: No adenopathy Labs/Diagnostic Data Labs Test 02/06/25 14:15 02/06/25 10:26 Range/Units Urine Color Colorless Yellow Urine Clarity Clear Clear Urine pH 5.5 5.0-9.0 Urine Specific [place] 1.005 1.001-1.035 Urine Protein Negative Negative Urine Ketones Negative Negative Urine Blood Negative Negative /uL Urine Nitrite Negative Negative Urine Bilirubin Negative Negative Urine Urobilinogen Normal Negative mg/dL Urine Leukocyte Esterase Negative Negative /uL Urine RBC <1 0 - 4 /hpf Urine Microscopic WBC < 1 0-5 /HPF Urine Squamous Epithelial Cells None seen <5 /hpf Urine Bacteria None seen None Seen /hpf Urine Glucose Normal Normal mg/dL White Blood Count 7.3 4.4-10.8 10^3/uL Red Blood Count 4.60 4.0-5.20 10^6/uL Hemoglobin 13.1 12.2-16.2 g/dL Hematocrit 38.9 36.0-46.0 % Mean Corpuscular Volume 84.6 80.0-100.0 fL Mean Corpuscular Hemoglobin 28.5 28.0-32.0 pg Mean Corpuscular Hemoglobin Concent 33.7 32.0-36.0 g/dL Red Cell Distribution Width 15.7 H 11.8-14.3 % Platelet Count 166 140-450 10^3/uL Mean Platelet Volume 7.9 6.9-10.8 fL Neutrophils (%) (Auto) 71.3 37.0-80.0 % Lymphocytes (%) (Auto) 15.5 10.0-50.0 % Monocytes (%) (Auto) 11.9 0.0-12.0 % Eosinophils (%) (Auto) 0.8 0.0-7.0 % Basophils (%) (Auto) 0.5 0.0-2.0 % Neutrophils # (Auto) 5.2 1.6-8.6 10 ^3/uL Lymphocytes # (Auto) 1.1 0.4-5.4 10 ^3/uL Monocytes # (Auto) 0.9 0-1.3 10 ^3/uL Eosinophils # (Auto) 0.1 0-0.8 10 ^3/uL Basophils # (Auto) 0 0-0.2 10 ^3/uL Nucleated Red Blood Cells 0.0 % Prothrombin Time 11.4 9.3-11.8 sec Prothrombin Time INR 1.08 0.9-1.15 Sodium Level 141 136-145 mmol/L Potassium Level 3.5 3.5-5.1 mmol/L Chloride Level 104 98-107 mmol/L Carbon Dioxide Level 30 20-31 mmol/L Anion Gap 7 5-15 Blood Urea Nitrogen 17 9-23 mg/dL Creatinine 0.76 0.550-1.02 mg/dL Glomerular Filtration Rate Calc 82 >90 mL/min BUN/Creatinine Ratio 22.4 H 10.0-20.0 Serum Glucose 104 74-106 mg/dL Calcium Level 10.2 8.7-10.4 mg/dL Left hip CT scan reviewed and demonstrated: Acute nondisplaced fractures of the left inferior and superior pubic rami. Subcutaneous hematoma in the left hip measuring 7.3 cm in maximum craniocaudal dimension. Assessment Left superior and inferior pubic rami fractures Plan/Recommendation I had a lengthy discussion with the patient and after discussing her case and reviewing her imaging studies with Dr. Santiago we have recommended against any surgical intervention at this time and instead advised to continue with conservative treatment with RICE and pain control. I advised the patient that she may remain weight-bearing as tolerated with the assistance of a walker although she will be experiencing some pain. I advised the patient to follow up with our office on an outpatient basis for further imaging studies to evaluate for healing of her fracture. She understood and agreed. Thank you for allowing us to participate in the care of your patient. Plan discussed with: Patient BREANNE BARRERA AMINATA February 06, 2025 16:58
[2025-02-06 17:28] VITALS: BP 130/67; PULSE 60; RESP 18; TEMP 98.8; O2SAT 94
[2025-02-06] MEDS: SUCRALFATE 1 GM TAB PO SCH (17:44)
[2025-02-06] MEDS: POTASSIUM CHLORIDE 8 MEQ TAB PO SCH (17:49)
[2025-02-06 17:53] VITALS: BP 130/67; PULSE 60; RESP 18; TEMP 98.8; O2SAT 94
[2025-02-06] MEDS: SODIUM CHLORIDE 0.9% 1,000 ML IV SCH (18:28)
[2025-02-06] MEDS: HYDROcodone-ACET 5/325MG TAB PO PRN (18:30)
--- NOTE | 2025-02-06 19:10 | DVH ---
EXAM: CT HEAD WITHOUT CONTRAST INDICATION: fall TECHNIQUE: CT of the head without intravenous contrast. Radiation Dose Information: CT Dose: CTDI volume is 53.0 mGy. Dose-length product is 849.71 mGy*cm The dose indicators for CT are the volume Computed Tomography (CT) Dose Index (CTDIvol) and the Dose Length Product (DLP), and are measured in units of mGy and mGy-cm, respectively. These indicators are not patient dose, but values generated from the CT scanner acquisition factors. The report includes radiation exposure data for exposures received during this examination. COMPARISON: None FINDINGS: There is no evidence of acute intracranial hemorrhage, extra-axial collection, mass effect, midline s hift, herniation or hydrocephalus. The ventricles, sulci and cisterns are age appropriate. The french-white differentiation is intact. Patchy periventricular and subcortical white matter hypoattenuation is nonspecific but may be related to small vessel ischemic disease. The visualized paranasal sinuses and mastoid air cells are clear. The surrounding soft tissues and osseous structures are unremarkable. IMPRESSION: 1. No acute intracranial hemorrhage 2. No CT findings of territorial ischemia 3. No findings of displaced skull fracture
[2025-02-06 21:00] VITALS: BP 97/46; PULSE 60; RESP 17; TEMP 98; O2SAT 97
[2025-02-06] MEDS: busPIRone HCL 10 MG TAB PO SCH (21:18)
[2025-02-06] MEDS: PANTOPRAZOLE 40 MG TAB PO SCH (21:18)
[2025-02-06] MEDS: GABAPENTIN 400 MG CAP PO SCH (21:18)
[2025-02-06] MEDS: APIXABAN 5 MG TAB PO SCH (21:18)
[2025-02-06] MEDS: traZODone HCL 50 MG TAB PO SCH (21:18)
[2025-02-06] MEDS: AMIODARONE HCL 200 MG TAB PO SCH (21:19)
[2025-02-06] MEDS: TIMOLOL MAL 0.5% OPTH(EYE) SOL 5ML EACHEYE SCH (22:00)
[2025-02-06] MEDS ORDERED: FLECAINIDE ACETATE 50 MG TAB PO SCH (22:00)
[2025-02-06] MEDS: LATANOPROST 0.005 % OPTH(EYE) SOL 2.5ML EACHEYE SCH (22:00)
[2025-02-07 01:00] VITALS: BP 109/55; PULSE 60; RESP 19; TEMP 97.7; O2SAT 98
[2025-02-07 06:44] LABS: Basophils # (auto) 0 10 ^3/uL (0-0.2); Basophils % (auto) 0.7 % (0.0-2.0); Eosinophils # (auto) 0.2 10 ^3/uL (0-0.8); Hematocrit 33.4 % (36.0-46.0); Hemoglobin 11.4 g/dL (12.2-16.2); Lymphocytes # (auto) 1.1 10 ^3/uL (0.4-5.4); Lymphocytes % (auto) 20.9 % (10.0-50.0); Mean Corpuscular Hemoglobin 28.9 pg (28.0-32.0); Mean Corpuscular Volume 84.9 fL (80.0-100.0); Monocytes # (auto) 0.8 10 ^3/uL (0-1.3); Monocytes % (auto) 15.5 % (0.0-12.0); Neutrophils # (auto) 3.3 10 ^3/uL (1.6-8.6); Neutrophils % (auto) 59.9 % (37.0-80.0); Nucleated Red Blood Cells % 0.2 %; Platelet Count (auto) 140 10^3/uL (140-450); Red Blood Cells 3.94 10^6/uL (4.0-5.20); Red Cell Distribution Width 15.5 % (11.8-14.3); White Blood Cell 5.5 10^3/uL (4.4-10.8)
[2025-02-07 07:04] LABS: Albumin 3.9 g/dL (3.2-4.8); Alkaline Phosphatase 84 U/L (46-116); Anion Gap 6 (5-15); Aspartate Aminotransferase 26 U/L (13-40); Bilirubin, Total 0.9 mg/dL (0.2-1.0); Blood Urea Nitrogen 16 mg/dL (9-23); Calcium 9.4 mg/dL (8.7-10.4); Carbon Dioxide 28 mmol/L (20-31); Chloride 105 mmol/L (98-107); Glucose 86 mg/dL (74-106); Potassium 3.6 mmol/L (3.5-5.1); Sodium 139 mmol/L (136-145); Total Protein 5.8 g/dL (5.7-8.2)
[2025-02-07 07:34] LABS: Alanine Aminotransferase 33 U/L (7-40)
[2025-02-07 08:00] VITALS: PULSE 60; RESP 18; O2SAT 95
[2025-02-07 09:00] VITALS: BP 98/49; PULSE 60; RESP 16; TEMP 97.7; O2SAT 95
[2025-02-07] MEDS: ASPirin-EC 81 mg tab PO SCH (09:02)
[2025-02-07] MEDS: FUROSEMIDE 40 MG TAB PO SCH (09:09)
[2025-02-07] MEDS: amLODIPine BESYLATE 5 MG TAB PO SCH (09:13)
--- NOTE | 2025-02-07 09:29 | DVH ---
EXAM: XY CHEST PORTABLE Indication: chest pain Technique: Single frontal view of the chest was obtained Comparison: XY CHEST XRAY 1 VIEW on DOS: 10/04/24, XY CHEST PORTABLE on DOS: 10/02/24, XY CHEST RALPH BLE on DOS: 10/01/24 FINDINGS: Lines and Tubes: Cardiac pacemaker projects over left chest wall. Lungs: No focal consolidation. Pleura: No effusion. No pneumothorax. Cardiomediastinal contours: Mild cardiomegaly. Bones: No acute osseous abnormality. IMPRESSION: Mild cardiomegaly. No acute cardiopulmonary disease.
[2025-02-07] MEDS ORDERED: ENOXAPARIN SOD 40 MG/0.4 ML SYRINGE SC SCH (10:00)
[2025-02-07] MEDS: Rosuvastatin Calcium (Crestor) 40 MG TABLET PO SCH (10:00)
[2025-02-07 13:00] VITALS: BP 137/59; PULSE 60; RESP 17; TEMP 97.8; O2SAT 93
[2025-02-07] MEDS ORDERED: IBUP-1453 PO (15:16)
[2025-02-07 15:21] VITALS: BP 137/59; PULSE 60; RESP 17; TEMP 97.8; O2SAT 93
[2025-02-07] MEDS ORDERED: HYDR-4072 PO (15:44)
[2025-02-07 16:47] VITALS: BP 144/60; PULSE 62; RESP 17; TEMP 97.9; O2SAT 95
--- NOTE | 2025-02-07 19:16 | DVHDSRES ---
Discharge Summary Date of Admission Resident Creating Document: BALDOMERO SUN RESIDENT February 06, 2025 at 13:34 Date of Discharge: February 07, 2025 Admitting Diagnosis S/P mechanical fall Wounds: No open wound was present Labs/Diagnostic Data: Laboratory Results Test 02/07/25 05:48 02/07/25 01:54 02/06/25 14:15 02/06/25 10:26 White Blood Count 5.5 10^3/uL (4.4-10.8) Red Blood Count 3.94 10^6/uL (4.0-5.20) Hemoglobin 11.4 g/dL (12.2-16.2) Hematocrit 33.4 % (36.0-46.0) Mean Corpuscular Volume 84.9 fL (80.0-100.0) Mean Corpuscular Hemoglobin 28.9 pg (28.0-32.0) Mean Corpuscular Hemoglobin Concent 34.0 g/dL (32.0-36.0) Red Cell Distribution Width 15.5 % (11.8-14.3) Platelet Count 140 10^3/uL (140-450) Mean Platelet Volume 8.1 fL (6.9-10.8) Neutrophils (%) (Auto) 59.9 % (37.0-80.0) Lymphocytes (%) (Auto) 20.9 % (10.0-50.0) Monocytes (%) (Auto) 15.5 % (0.0-12.0) Eosinophils (%) (Auto) 3.0 % (0.0-7.0) Basophils (%) (Auto) 0.7 % (0.0-2.0) Neutrophils # (Auto) 3.3 10 ^3/uL (1.6-8.6) Lymphocytes # (Auto) 1.1 10 ^3/uL (0.4-5.4) Monocytes # (Auto) 0.8 10 ^3/uL (0-1.3) Eosinophils # (Auto) 0.2 10 ^3/uL (0-0.8) Basophils # (Auto) 0 10 ^3/uL (0-0.2) Nucleated Red Blood Cells 0.2 % Sodium Level 139 mmol/L (136-145) Potassium Level 3.6 mmol/L (3.5-5.1) Chloride Level 105 mmol/L (98-107) Carbon Dioxide Level 28 mmol/L (20-31) Anion Gap 6 (5-15) Blood Urea Nitrogen 16 mg/dL (9-23) Creatinine 0.64 mg/dL (0.550-1.02) Glomerular Filtration Rate Calc 93 mL/min (>90) BUN/Creatinine Ratio 25.0 (10.0-20.0) Serum Glucose 86 mg/dL (74-106) Calcium Level 9.4 mg/dL (8.7-10.4) Total Bilirubin 0.9 mg/dL (0.2-1.0) Aspartate Amino Transferase (AST) 26 U/L (13-40) Alanine Aminotransferase (ALT) 33 U/L (7-40) Alkaline Phosphatase 84 U/L (46-116) B-Type Natriuretic Peptide 134.54 pg/mL (0-100) Total Protein 5.8 g/dL (5.7-8.2) Albumin 3.9 g/dL (3.2-4.8) Vitamin B12 Level 317 pg/mL (211-911) Vitamin D 25-Hydroxy 66.3 ng/mL (30.0-100) Hemoglobin A1c 5.7 % A1C (<5.7) Urine Color Colorless (Yellow) Urine Clarity Clear (Clear) Urine pH 5.5 (5.0-9.0) Urine Specific [place] 1.005 (1.001-1.035) Urine Protein Negative (Negative) Urine Ketones Negative (Negative) Urine Blood Negative /uL (Negative) Urine Nitrite Negative (Negative) Urine Bilirubin Negative (Negative) Urine Urobilinogen Normal mg/dL (Negative) Urine Leukocyte Esterase Negative /uL (Negative) Urine RBC <1 /hpf (0 - 4) Urine Microscopic WBC < 1 /HPF (0-5) Urine Squamous Epithelial Cells None seen /hpf (<5) Urine Bacteria None seen /hpf (None Seen) Urine Glucose Normal mg/dL (Normal) Prothrombin Time 11.4 sec (9.3-11.8) Prothrombin Time INR 1.08 (0.9-1.15) Other Laboratory Tests 02/07/25 05:48 Brief Hx & Hospital Course: Meghan Blood is a 74-year-old female with past medical history of hypertension, hyperlipidemia, anxiety, depression, AFib status post ablation at [place] on September 17, 2024, colonoscopy, bilateral tubal ligation, and pacemaker who presents to the ED with left hip pain status post fall at [facility]. Patient reports that she was going in between some shopping carts tripped and fell over 1 of the bumps that were in place to hold the shopping carts from moving, when she landed on her chin and left hip. Patient reports that she is taking blood thinners as well. Patient states that the pain is localized to the left hip. Upon examination left chin is also bruised. Patient endorses pain when trying to get up and walk. Patient denies any chest pain, shortness of breath, fever, chills, lightheadedness, weakness, dizziness, recent sick contacts, recent travels, abdominal pain, nausea, vomiting, or diarrhea. Hospital course: CT of the left hip showed Acute nondisplaced fractures of the left inferior and superior pubic rami. Subcutaneous hematoma in the left hip measuring 7.3 cm in maximum craniocaudal dimension. evaluated the patient and recommended conservative management with rice, pain medication as needed and follow up with outpatient orthopedics in 1-2 weeks. Patient was treated with morphine 2 mg q.4 p.r.n. and resumed home medications. PT evaluated the patient and mentioned patient can go home and walk independently with the help of the walker. Discharge plan was discussed with the patient and all questions were answered. Patient is being discharged to home with [place] as needed for pain and advised to continue home medications. Patient was also advised to follow up with PCP in 1 week and Orthopedics in 1-2 weeks. Physical examination on discharge: General Appearance: Alert, Oriented X3, Cooperative, No acute distress HEENT: Traumatic, PERRLA, EOMI, Mucous membrane moist/pink. Bruise over chin Respiratory: Clear to auscultation, Normal air movement Cardiovascular: Regular rate, Normal S1, Normal S2, No murmurs, no chest wall tenderness Abdominal: Normal bowel sounds, Soft, No tenderness, No hepatosplenomegaly, No masses Extremities: Tenderness present in the Lt groin and buttock area with bruise, No clubbing, No cyanosis, No edema, Normal pulses. Skin: No rashes, No breakdown, No significant lesion Neuro: Use walker, Normal speech, Strength at 5/5 X4 ext, Normal tone, Sensation intact, Cranial nerves 3-12 NL, Reflexes 2+ Psych/Mental Status: Mental status NL, Mood NL Goals of care discussed with the patient for 20 minutes; full code Discussed with Dr. Escalante Consults/Reason for consult Orthopedics was consulted for acute nondisplaced fractures of the left inferior and superior pubic rami Operations or Procedures CLINICAL INDICATION: 74 years old, Female; FALL. FINDINGS: Acute nondisplaced fractures of the left inferior and superior pubic rami. Left hip joint space narrowing is present. There is soft tissue swelling in the left hip with a high density collection in the subcutaneous tissues that measures 2.9 by 2.6 by 7.3 cm consistent with a hematoma. IMPRESSION: 1. Acute nondisplaced fractures of the left inferior and superior pubic rami. 2. Subcutaneous hematoma in the left hip measuring 7.3 cm in maximum craniocaudal dimension. EXAM: CT HEAD WITHOUT CONTRAST INDICATION: fall FINDINGS: There is no evidence of acute intracranial hemorrhage, extra-axial collection, mass effect, midline shift, herniation or hydrocephalus. The ventricles, sulci and cisterns are age appropriate. The french-white differentiation is intact. Patchy periventricular and subcortical white matter hypoattenuation is nonspecific but may be related to small vessel ischemic disease. The visualized paranasal sinuses and mastoid air cells are clear. The surrounding soft tissues and osseous structures are unremarkable. IMPRESSION: 1. No acute intracranial hemorrhage 2. No CT findings of territorial ischemia 3. No findings of displaced skull fracture Condition at Discharge: Stable Final Diagnosis/Problems List S/P mechanical fall Left hip pain likely due to acute nondisplaced fractures of the left inferior and superior pubic rami Subcutaneous hematoma in the left hip status post fall Essential hypertension Dyslipidemia Paroxysmal AFib status post ablation at [place] on September 17, 2024 with Secondary hypercoagulable state History of anxiety History of depression S/P pacemaker placement Discharge Disposition: Home Discharge Instruct/Medications Diet: Cardiac 2g Na,low cholest Activity: No Restrictions, As Tolerated Follow Up/Referral: Follow up with PCP Dr. Escalante in 1 week Follow up with Orthopedics in 1 to 2 weeks. Medications: As per EMR; [place] as needed was sent for pain Discharge Statement: "Patient was advised to return to the ER or call 911 if any headaches, dizziness, shortness of breath, chest pain, abdominal pain, bleeding, fevers, or worsening of medical condition. Patient was counseled about treatment plan, medications, possible side effects, patientverbalized understanding. All questions were answered to the best of my ability. This discharge took greater then 30 minutes in planning, reviewing documentation, counseling the patient, and discussing with other team members." ASSESSMENT ASSESSMENT Assessment PELVIC FRACTURE Addendum Addendum Addendum I was physically present for the haines portions of the service provided to patient by THE RESIDENT. I have reviewed the documentation, discussed the case with resident and agree with the resident's documentation except as noted. Also the patient's clinical case was discussed with the patient's nurse. This medical document was created using an electronic medical record system with computerized dictation system. Although this document has been carefully reviewed, there might still be some phonetic and typographical errors. These areas are purely typographical due to imperfections of the software programs, and do not reflect any compromise in the patient's medical care. Late signature. Date of Service: February 07, 2025 Billing Provider: CLARENCE ESCALANTE MD Common Visit Codes: 39998-VVL/OBS DISCH DAY >30min Secondary Visit Codes: 40121-BKFFICJI CARE PLAN 30 MINUTES (20 minutes) BALDOMERO SUN RESIDENT February 07, 2025 19:16 CLARENCE ESCALANTE MD February 08, 2025 05:14
== END 2025-02-07 16:00 | disposition home or self-care (01) | DRG 536 ==
LOC: ER 08:19 → OVERFLOW 13:34 → EAST 13:39
PROVIDERS: ADMIT Internal Medicine; ATTEND Internal Medicine
DX: S32.592A Other specified fracture of left pubis, initial encounter for closed fracture (principal); D68.69 Other thrombophilia; S32.512A Fracture of superior rim of left pubis, initial encounter for closed fracture; W01.0XXA Fall on same level from slipping, tripping and stumbling without subsequent striking against object, initial encounter; S70.02XA Contusion of left hip, initial encounter; E78.5 Hyperlipidemia, unspecified; I10 Essential (primary) hypertension; I48.91 Unspecified atrial fibrillation; F32.A Depression, unspecified; F41.9 Anxiety disorder, unspecified; Y93.01 Activity, walking, marching and hiking; Z95.0 Presence of cardiac pacemaker; Z88.0 Allergy status to penicillin; Z88.8 Allergy status to other drugs, medicaments and biological substances; Z79.01 Long term (current) use of anticoagulants; Z79.899 Other long term (current) drug therapy; Z79.82 Long term (current) use of aspirin; Y92.89 Other specified places as the place of occurrence of the external cause; Y99.8 Other external cause status; Z98.51 Tubal ligation status; Z82.3 Family history of stroke; Z80.0 Family history of malignant neoplasm of digestive organs
CPT/HCPCS: 36415; 70450; 71045; 73502; 73700; 80048; 80053; 81001; 82306; 82607; 83036; 83880; 85025; 85610; 96360; G0378

== ENCOUNTER → 2025-02-06 | Outpatient (CLI) | payer OTHER ==
[~2025-02-06] MED LIST changes: +HYDR-4072 PO; +IBUP-1453 PO
[2025-02-06 07:49] LABS: Urine Bacteria None Seen /hpf (None Seen)
[2025-02-06 08:31] LABS: Urine Blood Negative /uL (Negative); Urine Clarity Clear (Clear); Urine Color Colorless (Yellow); Urine Hyaline Cast FEW /lpf (0 - 2); Urine Protein, UAD Negative (Negative); Urine Specific Gravity 1.009 (1.001-1.035); Urine Squamous Epithelial Cell None Seen /hpf (<5); Urine Urobilinogen Normal (Negative); Urine WBC < 1 /HPF (0-5)
[2025-02-06 08:34] LABS: Alanine Aminotransferase 37 U/L (7-40); Albumin 4.5 g/dL (3.2-4.8); Anion Gap 5 (5-15); Aspartate Aminotransferase 29 U/L (13-40); BUN/Creatinine Ratio 23.4 (10.0-20.0); Blood Urea Nitrogen 18 mg/dL (9-23); Carbon Dioxide 29 mmol/L (20-31); Chloride 106 mmol/L (98-107); Glucose 97 mg/dL (74-106); Potassium 3.9 mmol/L (3.5-5.1); Sodium 140 mmol/L (136-145); Total Protein 6.7 g/dL (5.7-8.2)
[2025-02-06 08:35] LABS: Alkaline Phosphatase 119 U/L (46-116); Bilirubin, Total 1.1 mg/dL (0.2-1.0)
== END | disposition home or self-care (01) ==
LOC: LAB 07:32
PROVIDERS: ATTEND Internal Medicine
DX: R17 Unspecified jaundice (principal); R74.8 Abnormal levels of other serum enzymes; R82.90 Unspecified abnormal findings in urine
CPT/HCPCS: 36415; 80053; 81001

== ENCOUNTER 2025-05-13 08:00 | Outpatient (CLI) | payer OTHER ==
[~2025-05-13 08:00] MED LIST changes: +HYDR-4072 PO; -LEVO750T40 PO
[2025-05-13 08:40] LABS: Hematocrit 36.8 % (36.0-46.0); Hemoglobin 12.7 g/dL (12.2-16.2); Mean Corpuscular Hemoglobin 30.7 pg (28.0-32.0); Mean Corpuscular Volume 89.1 fL (80.0-100.0); Nucleated Red Blood Cells % 0.0 %
[2025-05-13 09:01] LABS: Alanine Aminotransferase 19 U/L (7-40); Albumin 4.3 g/dL (3.2-4.8); Anion Gap 7 (5-15); BUN/Creatinine Ratio 18.9 (10.0-20.0); Blood Urea Nitrogen 14 mg/dL (9-23); Calcium 9.1 mg/dL (8.7-10.4); Carbon Dioxide 28 mmol/L (20-31); Chloride 105 mmol/L (98-107); Glucose 90 mg/dL (74-106); Potassium 4.3 mmol/L (3.5-5.1); Sodium 140 mmol/L (136-145); Total Protein 6.2 g/dL (5.7-8.2)
[2025-05-13 09:02] LABS: Bilirubin, Total 0.9 mg/dL (0.2-1.0)
[2025-05-13 09:05] LABS: Alkaline Phosphatase 118 U/L (46-116)
== END 2025-05-13 17:00 | disposition home or self-care (01) ==
LOC: LAB 08:00
PROVIDERS: ATTEND Internal Medicine
DX: N18.2 Chronic kidney disease, stage 2 (mild) (principal); E78.5 Hyperlipidemia, unspecified; R17 Unspecified jaundice
CPT/HCPCS: 36415; 80053; 85025